=== PATIENT | male | born 1970 | race Caucasian/White ===

== ENCOUNTER → 2018-06-12 | Outpatient (CLI) | payer BC ==
[2018-06-12 14:41] VITALS: BP 135/84; PULSE 85; RESP 16; TEMP 98.1; BMI 49.1
--- NOTE | 2018-06-12 14:59 | P.HPBAR ---
Bariatric H&P - History & Physicial H&P Date: 06/12/18 History & Physicial: Visit/CC: initial visit Patient initial contact: Initial weight: 164.285 kg Initial weight in pounds: 362.19 Height: 5 ft 11.5 in Initial BMI: 49.1 Last weight: Current weight: 164.337 kg Current weight in pounds: 362.19 Current BMI: 49.1 [place] body weight (based on NIH guidelines): 80.739 kg Excess body weight loss: 0.0% The patient is a 47 year-old M who presents for Bariatric Assessment. Patient here today as a new bariatric assessment. Patient interested in sleeve gastrectomy. Patient went to a seminar 2 months ago. Patient complains of mild reflux. Takes antiacids daily. No DVT or dysphagia. History of obstructive sleep apnea and chronic back pain. No history of diabetes. No tobacco use. Review of Systems The patient denies any acute changes in vision or hearing, no dysphagia or odynophagia, no chest pain or shortness of breath, no dysuria or hematuria, no headache, no runny nose, no rectal bleeding or melena, no unexplained weight loss Past Medical History Past Medical History: Sleep Apnea/CPAP/BIPAP History of Any Multi-Drug Resistant Organisms: None Reported Past Surgical History: Appendectomy, Orthopedic Surgery Additional Past Surgical History / Comment(s): ankle l shoulder r shoulder r clavicle, throat surgery Past Psychological History: Depression Smoking Status: Former smoker Past Alcohol Use History: Rare Past Drug Use History: None Reported Surgical - Exam Vital Signs Temp Pulse Resp BP 98.1 F 85 16 135/84 06/12/18 14:14 06/12/18 14:14 06/12/18 14:14 06/12/18 14:14 Physical exam: General: Well-developed, well-nourished HEENT: Normocephalic, sclerae nonicteric Abdomen: Nontender, nondistended Extremities: No edema Neuro: Alert and oriented Bariatric Assessment & Plan (1) Morbid obesity with BMI of 45.0-49.9, adult Narrative/Plan: Surgical options reviewed in detail. Risks and benefits of gastric bypass and sleeve gastrectomy discussed. Patient remains interested in sleeve gastrectomy. We'll plan preoperative EGD. See the patient post-endoscopy back in the bariatric clinic prior to scheduling. Status: Acute Bariatric Checklist Checklist: Plan: Checklist: EGD: 1. Hiatal hernia: 2. H. Pylori: HgbA1c: Vitamin D: Smoking: Former smoker Primary care physician referral: dr. Willams Psychiatry clearance: Cardiology clearance: Sleep study: Diet journal: VTE risk score: VTE risk level: Rehab needs at discharge:
[2018-06-12 16:13] LABS: HCT 43.7 % (39.0-53.0); HGB 13.8 gm/dL (13.0-17.5); Hypochromasia Slight; MCH 26.5 pg (25.0-35.0); MCHC 31.6 g/dL (31.0-37.0); MCV 83.7 fL (80.0-100.0); Mean Platelet Volume 6.7; Platelet Count 299 k/uL (150-450); RBC 5.22 m/uL (4.30-5.90); RDW 13.3 % (11.5-15.5); WBC 10.4 k/uL (3.8-10.6)
[2018-06-12 22:58] LABS: Albumin 4.4 g/dL (3.80-4.90); Albumin/Globulin Ratio 1.69 (1.60-3.17); Anion Gap 7.4 mmol/L (4.00-12.00); Calcium 9.2 mg/dL (8.7-10.3); Carbon Dioxide 26.6 mmol/L (21.6-31.8); Globulin 2.6 g/dL (1.6-3.3); Potassium 4.1 mmol/L (3.5-5.5); Total Bilirubin 0.3 mg/dL (0.3-1.2)
[2018-06-12 23:16] LABS: Vitamin D 25 Hydroxy 22.8 ng/mL (30.0-100.0)
[2018-06-12 23:22] LABS: Folate, Serum 12.6 ng/mL
[2018-06-13 01:41] LABS: Hemoglobin A1C 6.3 % (4.0-6.0)
== END ==
LOC: BARWHC3 14:01
PROVIDERS: ATTEND Surgery
DX: E66.01 Morbid (severe) obesity due to excess calories (principal); K21.9 Gastro-esophageal reflux disease without esophagitis; G47.30 Sleep apnea, unspecified; G89.29 Other chronic pain; M54.9 Dorsalgia, unspecified; E55.9 Vitamin D deficiency, unspecified; K90.89 Other intestinal malabsorption; Z68.42 Body mass index [BMI] 45.0-49.9, adult; Z79.899 Other long term (current) drug therapy; Z87.891 Personal history of nicotine dependence
CPT/HCPCS: 36415; 80053; 82306; 82607; 82746; 83036; 83540; 84425; 85027; 93005; 99211

== ENCOUNTER 2018-07-25 07:02 | Day surgery (SDC) | payer BC ==
[2018-07-21 12:46] VITALS: BMI 49.8
[~2018-07-25 07:02] MED LIST: LACTATED RINGERS 1,000 ML IV SCH
[2018-07-25] MEDS ORDERED: LACTATED RINGERS 1,000 ML IV ONE (07:06)
[2018-07-25 07:20] VITALS: TEMP 97.3
[2018-07-25 07:31] LABS: Glucose,Whole Blood 101 mg/dL (75-99)
[2018-07-25] MEDS ORDERED: LIDOCAINE 1% INJ 10MG/ML (20 ML MDV) ONE (07:34)
[2018-07-25] MEDS ORDERED: fentaNYL (PF) 50 MCG/ML 2 ML AMP ONE (07:34)
[2018-07-25] MEDS ORDERED: MIDAZOLAM 2 MG/2 ML VIAL ONE (07:34)
[2018-07-25] MEDS ORDERED: KETAMINE 10 MG/ML 20 ML VIAL ONE (07:34)
[2018-07-25] MEDS ORDERED: PROPOFOL 10 MG/ML 20 ML VIAL IV ONE (07:34)
--- NOTE | 2018-07-25 07:35 | P.GSHP ---
History of Present Illness H&P Date: 07/25/18 Chief Complaint: GERD 47-year-old male was seen in the office in mid May. Patient is interested in bariatric surgery. Patient complains of mild reflux. No history of dysphagia. No previous upper endoscopy. Past Medical History Past Medical History: Diabetes Mellitus, GERD/Reflux, Sleep Apnea/CPAP/BIPAP Additional Past Medical History / Comment(s): ON RX FOR "PRE-DIABETIC," PER PATIENT. USES CPAP. History of Any Multi-Drug Resistant Organisms: None Reported Past Surgical History: Appendectomy, Orthopedic Surgery Additional Past Surgical History / Comment(s): LT Ankle, AGUEDA shoulders, RT clavicle, Throat surgery - UPPP. COLONOSCOPY. Past Anesthesia/Blood Transfusion Reactions: No Reported Reaction Past Psychological History: Depression Smoking Status: Former smoker Past Alcohol Use History: Rare Additional Past Alcohol Use History / Comment(s): SMOKED 22 YEARS, 1 PPD, QUIT 04/2008. Past Drug Use History: None Reported - Past Family History Mother Family Medical History: No Reported History Medications and Allergies Home Medications Medication Instructions Recorded Confirmed Type FLUoxetine HCL [PROzac] 80 mg PO DAILY 04/11/15 07/25/18 History Omeprazole [PriLOSEC] 20 mg PO AC-BRKFST 04/11/15 07/25/18 History Canagliflozin [Invokana] 100 mg PO DAILY 06/24/18 07/25/18 History Ergocalciferol (Vitamin D2) 50,000 unit PO MO 06/24/18 07/25/18 History [Drisdol] Allergies Allergy/AdvReac Type Severity Reaction Status Date / Time meperidine HCl [From Demerol] Allergy Unknown Verified 07/25/18 07:17 Childhood Surgical - Exam Vital Signs Temp Pulse Resp BP Pulse Ox 97.3 F L 68 16 128/70 96 07/25/18 07:18 07/25/18 07:18 07/25/18 07:18 07/25/18 07:18 07/25/18 07:18 Physical exam: General: Well-developed, well-nourished HEENT: Normocephalic, sclerae nonicteric Abdomen: Nontender, nondistended Extremities: No edema Neuro: Alert and oriented Results - Labs Abnormal Lab Results - Last 24 Hours (Table) 07/25/18 Range/Units 07:27 POC Glucose (mg/dL) 101 H (75-99) mg/dL Assessment and Plan (1) GERD (gastroesophageal reflux disease) Narrative/Plan: Will proceed with upper endoscopy at this time. Current Visit: Yes Status: Acute Code(s): K21.9 - GASTRO-ESOPHAGEAL REFLUX DISEASE WITHOUT ESOPHAGITIS SNOMED Code(s): 341202733
--- NOTE | 2018-07-25 07:49 | P.PCN ---
Date of Procedure: 07/25/18 Procedure(s) Performed: Preoperative Dx: GERD, presurgical Postoperative Dx: Mild gastritis Procedure: EGD with Bx Anesthesia: Sedation Endoscopist: Dr. Harman Specimens: Antrum Endoscopic Procedure: The patient was on the endoscopy table in the left decubitus position. The Olympus gastroscope was inserted into the oropharynx and passed under direct visualization to the region of the third portion of the duodenum. From that point the scope was slowly withdrawn inspecting all surfaces carefully. There were no neoplastic inflammatory or polypoid lesions throughout the duodenum. The pylorus was widely patent. The stomach was carefully inspected. There was gastritis present. A biopsy of the antrum took place to rule out H. pylori. Retroflexion revealed a normal hiatus. The esophagus was then carefully examined. There were no neoplastic inflammatory or polypoid lesions throughout the visualized esophagus. The patient was then taken to the recovery room in stable condition per anesthesia guidelines. Recommendations: Await biopsy results. Proceed with preoperative workup for sleep gastrectomy.
[2018-07-25 08:22] VITALS: BP 117/78; PULSE 76; RESP 17
== END 2018-07-25 08:23 | disposition home or self-care (01) ==
LOC: ORWHC2ENDO 07:02
PROVIDERS: ATTEND Surgery
DX: K21.9 Gastro-esophageal reflux disease without esophagitis (principal); K29.50 Unspecified chronic gastritis without bleeding; E11.9 Type 2 diabetes mellitus without complications; G47.30 Sleep apnea, unspecified; Z99.89 Dependence on other enabling machines and devices; Z87.891 Personal history of nicotine dependence; Z79.84 Long term (current) use of oral hypoglycemic drugs; Z79.899 Other long term (current) drug therapy; Z88.5 Allergy status to narcotic agent
CPT/HCPCS: 88305; 43239; J2250; J2001; J3010; J2704

== ENCOUNTER → 2018-08-11 | Outpatient (CLI) | payer BC ==
[2018-08-11 13:14] VITALS: BMI 48.2
== END ==
LOC: BARWHC3 08:49
PROVIDERS: ATTEND Surgery
DX: E66.01 Morbid (severe) obesity due to excess calories (principal); Z68.42 Body mass index [BMI] 45.0-49.9, adult
CPT/HCPCS: 97804

== ENCOUNTER → 2018-11-11 | Outpatient (CLI) | payer BC ==
[2018-11-11 14:11] VITALS: BP 123/66; PULSE 43; RESP 16; TEMP 98.3; BMI 46.3
--- NOTE | 2018-11-11 15:36 | P.BASOAP ---
Subjective Progress Note Date: 11/11/18 Principal diagnosis: Morbid obesity Patient returns for reevaluation. He is scheduled for sleeve gastrectomy mid- November. Patient doing well since his last evaluation. He had upper endoscopy in June showing only mild gastritis. He was started on saxenda. He has lost less than 10 pounds since starting that. That medication has improved his hunger. Objective - Vital Signs Vital signs: Vital Signs Temp 98.3 F 11/11/18 14:07 Pulse 43 L 11/11/18 14:07 Resp 16 11/11/18 14:07 BP 123/66 11/11/18 14:07 Pulse Ox Intake & Output 11/10/18 11/11/18 11/11/18 18:59 06:59 18:59 Weight 159.211 kg - Exam Abdomen: Soft, nontender, nondistended Assessment/Plan (1) Morbid obesity with BMI of 45.0-49.9, adult Narrative/Plan: Patient's heart rate when checked was 43. Irregular pulse on exam. EKG was ordered. EKG shows bigeminy. We'll have EKG reviewed by the patient's primary physician. Will obtain cardiac clearance. Hopefully we'll be able to proceed with planned sleeve gastrectomy next month. The risks of bleeding, infection, stenosis, stricture, leak, abscess, fistula formation, peritonitis, poor weight loss, reflux, vomiting, conversion to an open procedure, aborting sleeve gastrectomy, MT, PE, DVT, and were discussed. The patient understands and wishes to proceed. Plan: Date: 11/11/18 Initial Weight: 164.285 kg Initial BMI: 47.7 Current Weight: 159.211 kg Current BMI: 46.3 Type of Surgery: Total Volume in Band: Previous Volume: Volume Removed: Volume Added: Band Size:
== END ==
LOC: BARWHC3 13:47
PROVIDERS: ATTEND Surgery
DX: E66.01 Morbid (severe) obesity due to excess calories (principal); Z68.42 Body mass index [BMI] 45.0-49.9, adult
CPT/HCPCS: 93005; 99211

== ENCOUNTER → 2018-11-13 | Outpatient (CLI) | payer BC ==
[2018-11-13 19:26] LABS: African American GFR (CKD) 102.7 (60.0-200.0); Anion Gap 7.9 mmol/L (4.00-12.00); Carbon Dioxide 29.1 mmol/L (21.6-31.8); Potassium 4.6 mmol/L (3.5-5.5)
== END | disposition home or self-care (01) ==
LOC: LABWHC1 11:48
PROVIDERS: ATTEND Internal Medicine Cardiovascular Disease
DX: I49.3 Ventricular premature depolarization (principal)
CPT/HCPCS: 36415; 80051; 82565; 83735; 84443; 84520

== ENCOUNTER 2018-12-15 12:00 | Inpatient (IN) | payer BC ==
[2019-01-12] MEDS ORDERED: ENOXAPARIN 40 MG/0.4 ML SYRINGE SQ ONE (05:00)
[2019-01-12] MEDS ORDERED: ceFAZolin 3 GM in SODIUM CHLORIDE 0.9% 100 ML IVPB ONE (05:00)
[2019-01-12] MEDS ORDERED: LIDOCAINE 1% 20 ML VIAL (10MG/ML) FOR IV START INTRADERMA PRN (05:52)
[2019-01-12] MEDS ORDERED: METOCLOPRAMIDE 5 MG/ML 2 ML VIAL IVP PRN (05:52)
[2019-01-12] MEDS ORDERED: ONDANSETRON 4 MG/2 ML VIAL IVP ONE (05:52)
[2019-01-12] MEDS ORDERED: SCOPOLAMINE 1.5MG/72HR PATCH TRANSDERM ONE (05:52)
[2019-01-12] MEDS ORDERED: DEXAMETHASONE SOD PHOSPHATE 10 MG/ML 1 ML VIAL IV ONE (05:52)
--- NOTE | 2019-01-12 10:49 | P.GSHP ---
History of Present Illness H&P Date: 01/12/19 Patient presents today for elective sleeve gastrectomy. Patient first seen in the bariatric clinic in May of this year. Patient has been interested in sleeve gastrectomy. He is not interested in alternative bariatric surgical procedures. Patient has had an upper endoscopy which showed mild gastritis. No hiatal hernia seen. Complains of mild reflux at times. Does take antiacids daily. No history of DVT or dysphagia. Other medical history includes sleep apnea and chronic back pain. Patient had cardiac clearance obtained. Past Medical History Past Medical History: Diabetes Mellitus, GERD/Reflux, Sleep Apnea/CPAP/BIPAP Additional Past Medical History / Comment(s): ON RX FOR "PRE-DIABETIC," PER PATIENT. USES CPAP. History of Any Multi-Drug Resistant Organisms: None Reported Past Surgical History: Appendectomy, Back Surgery, Orthopedic Surgery Additional Past Surgical History / Comment(s): LUMBAR DISCETOMY December,. ORIFLT Ankle, BUT HARDWARE REMOVED. AGUEDA ROTATOR CUFF REPAIR. RT clavicle REPAIR.. Throat surgery - UPPP (PATIENT STATES IT DID NOT HELP AND WAS VERY PAINFUL). COLONOSCOPY. Past Anesthesia/Blood Transfusion Reactions: No Reported Reaction Past Psychological History: Depression Smoking Status: Former smoker Past Alcohol Use History: Rare Additional Past Alcohol Use History / Comment(s): SMOKED 22 YEARS, 1 PPD, QUIT 04/2008. Past Drug Use History: None Reported - Past Family History Mother Family Medical History: No Reported History Medications and Allergies Home Medications Medication Instructions Recorded Confirmed Type FLUoxetine HCL [PROzac] 80 mg PO QAM 04/11/15 01/05/19 History Omeprazole [PriLOSEC] 20 mg PO AC-BRKFST 04/11/15 01/05/19 History Canagliflozin [Invokana] 200 mg PO QAM 06/24/18 01/05/19 History Liraglutide [Saxenda] 1 injection SQ QAM 11/11/18 01/05/19 History Allergies Allergy/AdvReac Type Severity Reaction Status Date / Time meperidine HCl [From Demerol] Allergy Unknown Verified 01/05/19 14:45 Childhood Surgical - Exam Physical exam: General: Well-developed, well-nourished HEENT: Normocephalic, sclerae nonicteric Abdomen: Nontender, nondistended Extremities: No edema Neuro: Alert and oriented Assessment and Plan (1) Morbid obesity with BMI of 45.0-49.9, adult Narrative/Plan: Will proceed with sleeve gastrectomy at this time. The risks of bleeding, infection, stenosis, stricture, leak, abscess, fistula formation, peritonitis, poor weight loss, reflux, vomiting, conversion to an open procedure, aborting sleeve gastrectomy, ME, PE, DVT, and were discussed. The patient unde rstands and wishes to proceed. Status: Acute Code(s): E66.01 - MORBID (SEVERE) OBESITY DUE TO EXCESS CALORIES; Z68.42 - BODY MASS INDEX (BMI) 45.0-49.9, ADULT SNOMED Code(s): 871904572
[2019-01-12] MEDS: LACTATED RINGERS 1,000 ML IV SCH ×2 (12:21→21:53)
[2019-01-12 12:37] LABS: Glucose,Whole Blood 84 mg/dL (75-99)
[2019-01-12] MEDS ORDERED: NEOSTIGMINE 1 MG/ML 10 ML VIAL ONE (12:39)
[2019-01-12] MEDS ORDERED: LIDOCAINE 1% INJ 10MG/ML (20 ML MDV) ONE (12:39)
[2019-01-12] MEDS ORDERED: SUCCINYLCHOLINE CHLORIDE VIAL 200 MG/10 ML VIAL IV ONE (12:39)
[2019-01-12] MEDS ORDERED: MIDAZOLAM 2 MG/2 ML VIAL ONE (12:39)
[2019-01-12] MEDS ORDERED: fentaNYL (PF) 50 MCG/ML 2 ML AMP ONE (12:39)
[2019-01-12] MEDS ORDERED: GLYCOPYRROLATE 0.2 MG/ML 2 ML VIAL ONE (12:39)
[2019-01-12] MEDS ORDERED: PHENYLEPHRINE-0.9% NACL SYG 1 MG/10 ML SYRINGE ONE (12:39)
[2019-01-12] MEDS ORDERED: PROPOFOL 10 MG/ML 20 ML VIAL IV ONE (12:39)
[2019-01-12] MEDS ORDERED: ROCURONIUM BROMIDE 10 MG/ML 10 ML VIAL IV ONE (12:39)
[2019-01-12] MEDS ORDERED: BUPIVACAINE (PF) 0.25% 30 ML VIAL SQ ONE ×2 (13:10)
[2019-01-12] MEDS ORDERED: METHYLENE BLUE 3 MG in DEXTROSE 5% IN WATER 500 ML IRRIGATION ONE ×2 (13:22)
[2019-01-12] MEDS ORDERED: LACTATED RINGERS 1,000 ML IV ONE (13:47)
[2019-01-12] MEDS ORDERED: diphenhydrAMINE 50 MG/ML 1 ML VIAL IVP PRN (14:51)
[2019-01-12] MEDS ORDERED: ONDANSETRON 4 MG/2 ML VIAL IVP PRN (14:51)
[2019-01-12] MEDS ORDERED: NALOXONE 0.4 MG/ML 1 ML VIAL IV PRN (14:51)
--- NOTE | 2019-01-12 15:03 | P.OP ---
Date of Procedure: 01/12/19 Procedure(s) Performed: PREOPERATIVE DIAGNOSIS: Morbid obesity, chronic back pain, sleep apnea POSTOPERATIVE DIAGNOSIS: Same PROCEDURE: Laparoscopic sleeve gastrectomy SURGEON: Ghazal PATELL: Minimal ANESTHESIA: General COMPLICATIONS: None OPERATIVE PROCEDURE: Patient was placed in the operating table in the supine position. She was placed under general anesthesia at that time. The abdomen was prepped and draped in sterile fashion after the patient was placed in lithotomy. A 5 mm optical trocar was used to enter the abdominal cavity in the left upper quadrant. Insufflation took place to 15 millimeters mercury. An additional right subxiphoid 5 mm trocar was then placed under direct visualization and then removed. 2 additional 5 mm trochars were placed in the right upper quadrant and left upper quadrant under direct visualization and a 15 mm trocar in the supraumbilical location. The liver was retracted using a medium Geovanni liver retractor through the right subxiphoid trocar site. The hiatus was inspected. The patient had no visible hiatal hernia At that point I moved to the mid aspect of the greater curvature the stomach. The short gastric vasculature was divided using a LigaSure device proximally. I then switched and divided the short gastrics distally to a 3-4 cm from the pylorus. The dissection took place up to the left diaphragmatic crura at that point. The posterior short gastrics were likewise divided using the LigaSure device. Once the stomach was fully mobilized the blunt tipped 40-Frisian bougie dilator was advanced into the stomach and advanced all the way to the prepyloric location. A black echelon 60 stapler was utilized and fired tangentially across the antrum taking care to avoid narrowing at the incisura angularis. Subsequent firings of the stapler took place. An additional black load was then utilized with seam guard. A total of 4 green echelon 60 staplers with seam guard took place proximally staying on the outer edge of our dilator. Once we reached the most proximal portion of the stomach a single firing of the gold echelon 60 stapler without seen guard took place. The oral gastric tube was reinserted. The stomach was insufflated with approximately 100 mL of methylene blue. No evidence of leak or obstruction was seen. The distal aspect of the sleeve was then reapproximated to the gastrosplenic and gastrocolic ligament using a short running 2-0 strata fix suture. This was done to prevent kinking or twisting of the sleeve. Fibrin glue was then used along the length of the sleeve. The stomach remnant was removed from the 15 mm trocar site without difficulty. The fascia at the 15 more site was closed using interrupted 0 Vicryl sutures with the laparoscopic suture passer and Lyle Dada technique. The insufflation was evacuated. The skin at all 5 incisions were closed using 4-0 Monocryl sutures. Skin glue and sterile dressings were then applied. DISPOSITION: Stable to recovery room
[2019-01-12 15:07] LABS: Glucose,Whole Blood 104 mg/dL (75-99)
[2019-01-12] MEDS: HYDROmorphone 0.5 MG/0.5 ML SYRINGE IVP PRN ×3 (15:28→16:55)
[2019-01-12] MEDS ORDERED: HYDROmorphone 1 MG/ML 1 ML SYRINGE IVP ONE (17:00)
[2019-01-12] MEDS: ALBUTEROL NEBULIZED 2.5 MG/3 ML INHALATION SCH ×2 (17:42→20:18)
[2019-01-12] MEDS: KETOROLAC 30 MG/ML 1 ML VIAL IVP SCH ×2 (18:23→18:24)
[2019-01-12] MEDS: HYDROmorphone 1 MG/ML 1 ML SYRINGE IVP PRN (21:58)
[2019-01-12] MEDS: 0.9% NACL WITH KCL 20 MEQ/L 1,000 ML IV SCH (22:14)
[2019-01-12 22:41] LABS: Glucose,Whole Blood 123 mg/dL (75-99)
[2019-01-13] MEDS: HYDROmorphone 1 MG/ML 1 ML SYRINGE IVP PRN ×6 (01:21→21:10)
[2019-01-13] MEDS: 0.9% NACL WITH KCL 20 MEQ/L 1,000 ML IV SCH ×3 (01:23→07:56)
[2019-01-13] MEDS: SIMETHICONE 40 MG/0.6 ML DROPS 2,000 MG/30 ML BOTTLE PO PRN ×2 (05:37→18:07)
[2019-01-13] MEDS: HYOSCYAMINE ORAL DROPS 1.875 MG/15 ML BOTTLE PO PRN ×2 (05:38→18:07)
[2019-01-13 06:51] LABS: Basophils % (A) 0 %; Eosinophils % (A) 0 %; HCT 45.3 % (39.0-53.0); HGB 13.8 gm/dL (13.0-17.5); Hypochromasia Slight; Lymphocytes % (A) 10 %; MCH 26.1 pg (25.0-35.0); MCHC 30.4 g/dL (31.0-37.0); MCV 85.9 fL (80.0-100.0); Mean Platelet Volume 6.9; Monocytes # (A) 0.5 k/uL (0-1.0); Monocytes % (A) 4 %; Neutrophils # (A) 8.8 k/uL (1.3-7.7); Neutrophils % (A) 85 %; Platelet Count 269 k/uL (150-450); RBC 5.27 m/uL (4.30-5.90); RDW 14.1 % (11.5-15.5); WBC 10.3 k/uL (3.8-10.6)
[2019-01-13 06:59] LABS: African American GFR (CKD) >90 (>60 ml/min/1.73 sqM); Anion Gap 9 mmol/L; Blood Urea Nitrogen 13 mg/dL (9-20); Calcium 8.9 mg/dL (8.4-10.2); Carbon Dioxide 24 mmol/L (22-30); Chloride 106 mmol/L (98-107); Magnesium 2.1 mg/dL (1.6-2.3); Phosphorus 3.4 mg/dL (2.5-4.5); Potassium 5.1 mmol/L (3.5-5.1); Sodium 139 mmol/L (137-145)
[2019-01-13 07:28] LABS: Glucose,Whole Blood 97 mg/dL (75-99)
[2019-01-13] MEDS: ENOXAPARIN 40 MG/0.4 ML SYRINGE SQ SCH ×2 (07:45→21:09)
[2019-01-13] MEDS: PANTOPRAZOLE 40 MG/10 ML VIAL IV SCH (07:45)
[2019-01-13] MEDS: 1: MVI, ADULT NO.4 WITH VIT K 10 ML, THIAMINE 100 MG, FOLIC ACID 1 MG, POTASSIUM CHLORID IV SCH ×12 (08:54→16:27)
[2019-01-13] MEDS: ALBUTEROL NEBULIZED 2.5 MG/3 ML INHALATION SCH ×4 (09:01→20:07)
--- NOTE | 2019-01-13 09:41 | FL ---
EXAMINATION TYPE: FL UGI DATE OF EXAM: 01/13/2019 COMPARISON: NONE HISTORY: Status post bariatric surgery, gastric sleeve TECHNIQUE: A single contrast UGI study is performed. FINDINGS: Patient received 50 cc Isovue-370. 1 minute 19 seconds fluoroscopy time. 5 images obtained. Contrast material courses to the level of the gastroesophageal junction. No contrast was noted to cou rse more distally. There is no evident leak. Air-fluid levels present in left upper quadrant. There i s basilar atelectasis. IMPRESSION: Obstruction at the level of the patient's operative site. Referring clinician informed by [email or web address] dunbar.
[2019-01-13] MEDS ORDERED: DEXAMETHASONE SOD PHOSPHATE 4 MG/ML 1 ML VIAL IV PRN (09:49)
[2019-01-13] MEDS ORDERED: HYDROcodone/APAP 15 ML SOLUTION PO PRN (11:15)
[2019-01-13] MEDS ORDERED: ONDANSETRON 4 MG/2 ML VIAL IVP PRN (11:16)
--- NOTE | 2019-01-13 11:17 | P.PN ---
<Lila Isaac Taye - Last Filed: 01/13/19 11:12> Subjective Progress Note Date: 01/13/19 CHIEF COMPLAINT: Morbid obesity HISTORY OF PRESENT ILLNESS: 48-year-old male who is status post laparoscopic sleeve gastrectomy. Postop day #1. Patient reports his pain is tolerable. He reports mild nausea overnight and this morning. He has been tolerating ice chips. Esophagram completed this morning reveals obstruction at the level of the patient's operative site. No evident leak noted. PHYSICAL EXAM: VITAL SIGNS: Reviewed. GENERAL: Well-developed in no acute distress. HEENT: No sclera icterus. Extraocular movements grossly intact. Moist buccal mucosa. Head is atraumatic, normocephalic. ABDOMEN: Obese. Soft. Nondistended. Appropriate surgical tenderness. Laparoscopic incision sites clean dry and intact without drainage. NEUROLOGIC: Alert and oriented. Cranial nerves II through XII grossly intact. ASSESSMENT: 1. Morbid obesity, status post laparoscopic sleeve gastrectomy PLAN: 1. Patient may have ice chips and sips of clear liquids only at this time 2. Begin Decadron 4 mg IV every 6 hours 3. Repeat esophagram tomorrow morning 4. Increase activity as tolerated 5. Pain control 6. Incentive spirometer 10 times an hour Nurse practitioner note has been reviewed by physician. Signing provider agrees with the documented findings, assessment, and plan of care. Objective - Vital Signs Vital signs: Vital Signs Temp 98.3 F 01/13/19 07:01 Pulse 93 01/13/19 09:12 Resp 17 01/13/19 07:01 BP 159/80 01/13/19 07:01 Pulse Ox 95 01/13/19 07:01 Intake & Output 01/12/19 01/13/19 01/13/19 18:59 06:59 18:59 Intake Total 1801 1800 Output Total 15 500 500 Balance 1786 1300 -500 Intake: IV 1801 Intake, IV Titration 1800 Amount 0.9% NaCl with KCl 20 Meq 1800 /l 1,000 ml @ 150 mls/hr IV .[id number] [facility] Rx#: [id number] Output: Urine 500 500 Estimated Blood Loss 15 Other: Voiding Method Urinal Urinal - Labs CBC & Chem 7: 01/13/19 06:07 01/13/19 06:07 Labs: Abnormal Lab Results - Last 24 Hours (Table) 01/12/19 01/12/19 01/13/19 Range/Units 15:05 22:39 06:07 MCHC 30.4 L (31.0-37.0) g/dL Neutrophils # 8.8 H (1.3-7.7) k/uL Creatinine (0.66-1.25) mg/dL POC Glucose (mg/dL) 104 H 123 H (75-99) mg/dL 01/13/19 Range/Units 06:07 MCHC (31.0-37.0) g/dL Neutrophils # (1.3-7.7) k/uL Creatinine 0.65 L (0.66-1.25) mg/dL POC Glucose (mg/dL) (75-99) mg/dL <Matt Harman - Last Filed: 01/13/19 14:32> Subjective As above. Patient complaining some mild indigestion overnight. No vomiting. Patient's upper GI shows obstruction likely related to edema. We were able to advance our dilator and nasogastric tube without difficulty yesterday. Continue sips of liquids. Will plan repeat esophagram tomorrow. Agree with Decadron. We'll also add Toradol. Objective - Vital Signs Vital signs: Vital Signs Temp 98.3 F 01/13/19 07:01 Pulse 96 01/13/19 12:32 Resp 17 01/13/19 07:01 BP 159/80 01/13/19 07:01 Pulse Ox 90 L 01/13/19 11:35 Intake & Output 01/12/19 01/13/19 01/13/19 18:59 06:59 18:59 Intake Total 1801 1800 500 Output Total 15 500 1000 Balance 1786 1300 -500 Intake: IV 1801 Intake, IV Titration 1800 500 Amount 0.9% NaCl with KCl 20 Meq 500 /l 1,000 ml @ 100 mls/hr IV .BY DURATION [facility] Rx#: [id number] 0.9% NaCl with KCl 20 Meq 1800 /l 1,000 ml @ 150 mls/hr IV .Q6H40M [facility] Rx#: [id number] Output: Urine 500 1000 Estimated Blood Loss 15 Other: Voiding Method Urinal Urinal - Labs CBC & Chem 7: 01/13/19 06:07 01/13/19 06:07 Labs: Abnormal Lab Results - Last 24 Hours (Table) 01/12/19 01/12/19 01/13/19 Range/Units 15:05 22:39 06:07 MCHC 30.4 L (31.0-37.0) g/dL Neutrophils # 8.8 H (1.3-7.7) k/uL Creatinine (0.66-1.25) mg/dL POC Glucose (mg/dL) 104 H 123 H (75-99) mg/dL 01/13/19 01/13/19 Range/Units 06:07 12:15 MCHC (31.0-37.0) g/dL Neutrophils # (1.3-7.7) k/uL Creatinine 0.65 L (0.66-1.25) mg/dL POC Glucose (mg/dL) 121 H (75-99) mg/dL Assessment and Plan (1) Morbid obesity with BMI of 45.0-49.9, adult Current Visit: No Status: Acute Code(s): E66.01 - MORBID (SEVERE) OBESITY DUE TO EXCESS CALORIES; Z68.42 - BODY MASS INDEX (BMI) 45.0-49.9, ADULT SNOMED Code(s): 049494428
[2019-01-13 12:18] LABS: Glucose,Whole Blood 121 mg/dL (75-99)
[2019-01-13 16:49] VITALS: BMI 46.6
[2019-01-13 17:00] LABS: Glucose,Whole Blood 101 mg/dL (75-99)
[2019-01-13] MEDS: DEXAMETHASONE SOD PHOSPHATE 4 MG/ML 1 ML VIAL IV SCH ×2 (17:01→22:59)
[2019-01-13] MEDS: KETOROLAC 30 MG/ML 1 ML VIAL IVP SCH ×2 (17:02→22:59)
[2019-01-13 20:22] LABS: Glucose,Whole Blood 131 mg/dL (75-99)
[2019-01-13 20:54] LABS: Hemoglobin A1C 5.6 % (4.0-6.0)
--- NOTE | 2019-01-13 21:38 | P.CONS ---
History of Present Illness - Reason for Consult Consult date: 01/13/19 Medical management of diabetes and other medical problems - Chief Complaint Status post laparoscopic sleeve gastrectomy - History of Present Illness Patient is a 48-year-old male with a known history of diabetes type 2 mbw-zycmzdn-gfsmtmcwr, obstructive sleep apnea and morbid obesity BMI 46.7 was admitted to the hospital for elective Laparoscopic sleeve gastrectomy. Patient tolerated the procedure very well. Currently abdominal discomfort is controlled. Patient does have some nausea. No vomiting. No headache or dizziness like tightness. No chest pain or shortness of breath. Patient is able to ambulate in the hallway. Patient has not passed flatness. No complaints of abdominal pain otherwise. no fever no chills. No cough or sputum production. Review of Systems Constitutional: Patient denies any fever or chills . No generalized weakness or weight loss. Abdomen: Patient denied nausea vomiting and diarrhea and abdominal pain. Patient does have some abdominal discomfort. Cardiovascular: Patient denies any chest pain or short of breath no palpitations. Respiratory: patient denied any cough is from production. No shortness of breath Neurologic: Patient denied any numbness or tingling headache. Musculoskeletal: Patient denies any complaints of joint swelling or deformity. Skin: Negative Psychiatric: Negative Endocrine: No heat or cold intolerance. No recent weight gain. Genitourinary: No dysuria or hematuria. All other 14 point ROS negative except the above Past Medical History Past Medical History: Diabetes Mellitus, GERD/Reflux, Sleep Apnea/CPAP/BIPAP Additional Past Medical History / Comment(s): ON RX FOR "PRE-DIABETIC," PER PATIENT. USES CPAP. History of Any Multi-Drug Resistant Organisms: None Reported Past Surgical History: Appendectomy, Back Surgery, Bariatric Surgery, Orthopedic Surgery Additional Past Surgical History / Comment(s): LUMBAR DISCETOMY December,. ORIFLT Ankle, BUT HARDWARE REMOVED. AGUEDA ROTATOR CUFF REPAIR. RT clavicle REPAIR.. Throat surgery - UPPP (PATIENT STATES IT DID NOT HELP AND WAS VERY PAINFUL). COLONOSCOPY. Past Anesthesia/Blood Transfusion Reactions: No Reported Reaction Past Psychological History: Depression Smoking Status: Former smoker Past Alcohol Use History: Rare Additional Past Alcohol Use History / Comment(s): SMOKED 22 YEARS, 1 PPD, QUIT 04/2008. Past Drug Use History: None Reported - Past Family History Mother Family Medical History: No Reported History Medications and Allergies Home Medications Medication Instructions Recorded Confirmed Type FLUoxetine HCL [PROzac] 80 mg PO QAM 04/11/15 01/05/19 History Omeprazole [PriLOSEC] 20 mg PO AC-BRKFST 04/11/15 01/05/19 History Canagliflozin [Invokana] 200 mg PO QAM 06/24/18 01/12/19 History Liraglutide [Saxenda] 1 injection SQ QAM 11/11/18 01/12/19 History Allergies Allergy/AdvReac Type Severity Reaction Status Date / Time meperidine HCl [From Demerol] Allergy Unknown Verified 01/05/19 14:45 Childhood Physical Exam Vitals: Vital Signs Temp Pulse Pulse Resp BP Pulse Ox Pulse Ox 01/13/19 20:18 90 01/13/19 20:08 90 01/13/19 19:13 98.4 F 91 18 158/85 91 L 01/13/19 16:44 90 01/13/19 16:33 90 01/13/19 15:48 98.6 F 89 15 143/82 91 L 01/13/19 12:32 96 01/13/19 12:16 89 01/13/19 11:35 90 L 01/13/19 11:20 90 L 01/13/19 09:12 93 01/13/19 09:01 82 01/13/19 07:01 98.3 F 104 H 17 159/80 95 01/13/19 04:08 18 01/13/19 02:10 98.1 F 70 169/73 97 01/13/19 00:00 18 01/12/19 23:58 94 L 01/12/19 23:51 95 01/12/19 23:30 165/82 01/12/19 22:04 97.7 F 94 18 180/99 97 Pulse Ox Pulse Ox 01/13/19 20:18 01/13/19 20:08 01/13/19 19:13 01/13/19 16:44 01/13/19 16:33 01/13/19 15:48 01/13/19 12:32 01/13/19 12:16 01/13/19 11:35 01/13/19 11:20 92 L 89 L 01/13/19 09:12 01/13/19 09:01 01/13/19 07:01 01/13/19 04:08 01/13/19 02:10 01/13/19 00:00 01/12/19 23:58 01/12/19 23:51 01/12/19 23:30 01/12/19 22:04 Intake and Output 01/13/19 01/13/19 01/13/19 06:59 14:59 22:59 Intake Total 900 500 Output Total 1000 800 Balance 900 -500 -800 Intake: Intake, IV Titration 900 500 Amount 0.9% NaCl with KCl 20 Meq 500 /l 1,000 ml @ 100 mls/hr IV .BY DURATION EDA Rx#: [id number] 0.9% NaCl with KCl 20 Meq 900 /l 1,000 ml @ 150 mls/hr IV .Q6H40M EDA Rx#: [id number] Output: Urine 1000 800 Other: Voiding Method Urinal Urinal Urinal Weight 156.036 kg PHYSICAL EXAMINATION: Patient is lying in the bed comfortably, no acute distress, awake alert and oriented.. HEENT: Normocephalic. Neck is supple. Pupils reactive. Nostrils clear. Oral cavity is moist. Ears reveal no drainage. Neck reveals no JVD, carotid bruits, or thyromegaly. CHEST EXAMINATION: Trachea is central. Symmetrical expansion. Bibasilar diminished air entry. Lung grace clear to auscultation and percussion. CARDIAC: Normal S1, S2 with no gallops. No murmurs ABDOMEN: Soft. Bowel sounds diminished. No organomegaly. No abdominal bruits. Extremities: reveal no edema. No clubbing or cyanosis Neurologically awake, alert, oriented x3 with well-coordinated movements. No focal deficits noted Skin: No rash or skin lesions. Psychiatric: Coperative. Nonsuicidal Musculoskeletal: No joint swelling or deformity. Normal range of motion. Results CBC & Chem 7: 01/13/19 06:07 01/13/19 06:07 Labs: Abnormal Lab Results - Last 24 Hours (Table) 01/12/19 01/13/19 01/13/19 Range/Units 22:39 06:07 06:07 MCHC 30.4 L (31.0-37.0) g/dL Neutrophils # 8.8 H (1.3-7.7) k/uL Creatinine 0.65 L (0.66-1.25) mg/dL POC Glucose (mg/dL) 123 H (75-99) mg/dL 01/13/19 01/13/19 01/13/19 Range/Units 12:15 16:58 20:21 MCHC (31.0-37.0) g/dL Neutrophils # (1.3-7.7) k/uL Creatinine (0.66-1.25) mg/dL POC Glucose (mg/dL) 121 H 101 H 131 H (75-99) mg/dL Assessment and Plan Assessment: Status post laparoscopic sleeve gastrectomy. Diabetes type 2 [id number]-[id number]. Prediabetic Obstructive sleep apnea patient uses CPAP at home Anxiety/depression Previous history of smoking Morbid obesity with BMI 46.7 DVT prophylaxis Plan: Patient will be continued on IV hydration and continue with supportive management. Encourage ablation and incentive spirometry. DVT prophylaxis as per primary team. His insulin sliding scale as needed. We will continue to follow closely and further recommendations based on the clinical course. Time with Patient: Greater than 30
[2019-01-14] MEDS ORDERED: DEXAMETHASONE SOD PHOSPHATE 4 MG/ML 1 ML VIAL ONE (03:28)
[2019-01-14] MEDS ORDERED: HYDROmorphone 1 MG/ML 1 ML SYRINGE ONE (03:28)
[2019-01-14] MEDS ORDERED: ONDANSETRON 4 MG/2 ML VIAL ONE (03:28)
[2019-01-14] MEDS ORDERED: KETOROLAC 30 MG/ML 1 ML VIAL ONE (03:28)
[2019-01-14] MEDS: 1: MVI, ADULT NO.4 WITH VIT K 10 ML, THIAMINE 100 MG, FOLIC ACID 1 MG, POTASSIUM CHLORID IV SCH ×18 (07:58→20:34)
[2019-01-14] MEDS: KETOROLAC 30 MG/ML 1 ML VIAL IVP SCH ×4 (07:58→23:36)
[2019-01-14] MEDS: DEXAMETHASONE SOD PHOSPHATE 4 MG/ML 1 ML VIAL IV SCH (07:59)
[2019-01-14] MEDS: LACTATED RINGERS 1,000 ML IV SCH (07:59)
[2019-01-14] MEDS: ALBUTEROL NEBULIZED 2.5 MG/3 ML INHALATION SCH ×4 (08:27→20:16)
--- NOTE | 2019-01-14 10:10 | FL ---
EXAMINATION TYPE: FL UGI DATE OF EXAM: 01/14/2019 COMPARISON: 01/13/2019 comparison HISTORY: Gastric sleeve TECHNIQUE: A single contrast UGI study is performed. Motor Generator Set Operator views obtained demonstrates contrast with in the colon. FINDINGS: Contrast passes from the distal esophagus through the gastric sleeve with mild hesitancy. N o extravasation of contrast is evident. Previous obstruction is not identified. No free air is noted during this examination. Overhead radiographs were obtained which are unremarkable. Fluoroscopy time: 54 seconds. Images: 16 IMPRESSIONS: 1. Normal post gastric sleeve without obstruction or significant hesitancy. No extravasation.
--- NOTE | 2019-01-14 10:28 | P.PN ---
<IsaacLila Taye - Last Filed: 01/14/19 10:23> Subjective Progress Note Date: 01/14/19 CHIEF COMPLAINT: Morbid obesity HISTORY OF PRESENT ILLNESS: 48-year-old male who is status post laparoscopic sleeve gastrectomy. Postop day #2. Patient underwent repeat esophagram this morning revealing a normal post gastric sleeve without obstruction or significant hesitancy. No extravasation. Patient has been tolerating sips of clear liquids. Pain is controlled with current regimen. PHYSICAL EXAM: VITAL SIGNS: Reviewed. GENERAL: Well-developed in no acute distress. HEENT: No sclera icterus. Extraocular movements grossly intact. Moist buccal mucosa. Head is atraumatic, normocephalic. ABDOMEN: Obese. Soft. Nondistended. Appropriate surgical tenderness. Laparoscopic incision sites clean dry and intact without drainage. NEUROLOGIC: Alert and oriented. Cranial nerves II through XII grossly intact. ASSESSMENT: 1. Morbid obesity, status post laparoscopic sleeve gastrectomy 2. Postoperative obstruction of gastric sleeve, likely related to edema, an unexpected but potential outcome of surgery, resolved PLAN: 1. Begin bariatric clear liquid diet 2. Discontinue Decadron 3. Increase activity as tolerated 4. Pain control 5. Incentive spirometer 10 times an hour Nurse practitioner note has been reviewed by physician. Signing provider agrees with the documented findings, assessment, and plan of care. Objective - Vital Signs Vital signs: Vital Signs Temp 98.1 F 01/14/19 07:00 Pulse 94 01/14/19 08:42 Resp 18 01/14/19 08:28 BP 150/77 01/14/19 07:00 Pulse Ox 95 01/14/19 08:28 Intake & Output 01/13/19 01/14/19 01/14/19 18:59 06:59 18:59 Intake Total 500 1200 Output Total 1400 800 Balance -900 400 Weight 156.036 kg Intake: Intake, IV Titration 500 1200 Amount 0.9% NaCl with KCl 20 Meq 500 /l 1,000 ml @ 100 mls/hr IV .BY DURATION EDA Rx#: [id number] Mvi, Adult No.4 with Vit 1200 K 10 ml Thiamine 100 mg Folic Acid 1 mg Potassium Chloride 20 meq In Sodium Chloride 0.9% 1, 000 ml @ 100 mls/hr IV . BY DURATION EDA Rx#: [id number] Output: Urine 1400 800 Other: Voiding Method Urinal Urinal - Labs CBC & Chem 7: 01/13/19 06:07 01/13/19 06:07 Labs: Abnormal Lab Results - Last 24 Hours (Table) 01/13/19 01/13/19 01/13/19 Range/Units 12:15 16:58 20:21 POC Glucose (mg/dL) 121 H 101 H 131 H (75-99) mg/dL <Matt Harman - Last Filed: 01/14/19 12:54> Subjective As above. Patient doing better today. Begin higher volume of liquids. Anticipate discharge tomorrow. Objective - Vital Signs Vital signs: Vital Signs Temp 98.1 F 01/14/19 07:00 Pulse 103 H 01/14/19 11:51 Resp 18 01/14/19 08:28 BP 150/77 01/14/19 07:00 Pulse Ox 95 01/14/19 08:28 Intake & Output 01/13/19 01/14/19 01/14/19 18:59 06:59 18:59 Intake Total 500 2221.2 Output Total 1400 800 Balance -900 1421.2 Weight 156.036 kg Intake: Intake, IV Titration 500 2221.2 Amount 0.9% NaCl with KCl 20 Meq 500 /l 1,000 ml @ 100 mls/hr IV .BY DURATION [facility] Rx#: [id number] Mvi, Adult No.4 with Vit 2221.2 K 10 ml Thiamine 100 mg Folic Acid 1 mg Potassium Chloride 20 meq In Sodium Chloride 0.9% 1, 000 ml @ 100 mls/hr IV . BY DURATION EDA Rx#: [id number] Output: Urine 1400 800 Other: Voiding Method Urinal Urinal - Labs CBC & Chem 7: 01/13/19 06:07 01/13/19 06:07 Labs: Abnormal Lab Results - Last 24 Hours (Table) 01/13/19 01/13/19 Range/Units 16:58 20:21 POC Glucose (mg/dL) 101 H 131 H (75-99) mg/dL Assessment and Plan (1) Morbid obesity with BMI of 45.0-49.9, adult Current Visit: No Status: Acute Code(s): E66.01 - MORBID (SEVERE) OBESITY DUE TO EXCESS CALORIES; Z68.42 - BODY MASS INDEX (BMI) 45.0-49.9, ADULT SNOMED Code(s): 954617758
[2019-01-14] MEDS: PANTOPRAZOLE 40 MG/10 ML VIAL IV SCH (10:44)
[2019-01-14] MEDS: PANTOPRAZOLE 40 MG TABLET PO SCH (10:45)
[2019-01-14] MEDS: ENOXAPARIN 40 MG/0.4 ML SYRINGE SQ SCH ×2 (10:45→18:02)
[2019-01-14] MEDS: CANAGLIFLOZIN 200 MG PO SCH (10:45)
[2019-01-14] MEDS: FLUoxetine HCL 20 MG CAP PO SCH (10:45)
[2019-01-14] MEDS: HYDROmorphone 1 MG/ML 1 ML SYRINGE IVP PRN (10:53)
--- NOTE | 2019-01-14 22:04 | P.PN ---
Subjective Progress Note Date: 01/14/19 Principal diagnosis: Status post sleeve gastrectomy Patient is a 48-year-old male with a known history of diabetes type 2 yfo-uzshwoe-euujiufhx, obstructive sleep apnea and morbid obesity BMI 46.7 was admitted to the hospital for elective Laparoscopic sleeve gastrectomy. Patient tolerated the procedure very well. Currently abdominal discomfort is controlled. Patient does have some nausea. No vomiting. No headache or dizziness like tightness. No chest pain or shortness of breath. Patient is able to ambulate in the hallway. Patient has not passed flatness. No compla ints of abdominal pain otherwise. no fever no chills. No cough or sputum production. 01/14/2019 Patient denied any complaints of abdominal discomfort. No chest pain or shortness of breath. Patient had upper GI series done again today showed no evidence of extravasation. Started on liquid diet. Otherwise patient is ambulating and passing flatus. No complaints of nausea vomiting or diarrhea. Patient has been afebrile. Current medications reviewed. Objective - Vital Signs Vital signs: Vital Signs Temp 98.1 F 01/14/19 07:00 Pulse 94 01/14/19 08:42 Resp 18 01/14/19 08:28 BP 150/77 01/14/19 07:00 Pulse Ox 95 01/14/19 08:28 Intake & Output 01/13/19 01/14/19 01/14/19 18:59 06:59 18:59 Intake Total 500 1200 Output Total 1400 800 Balance -900 400 Weight 156.036 kg Intake: Intake, IV Titration 500 1200 Amount 0.9% NaCl with KCl 20 Meq 500 /l 1,000 ml @ 100 mls/hr IV .BY DURATION EDA Rx#: [id number] Mvi, Adult No.4 with Vit 1200 K 10 ml Thiamine 100 mg Folic Acid 1 mg Potassium Chloride 20 meq In Sodium Chloride 0.9% 1, 000 ml @ 100 mls/hr IV . BY DURATION EDA Rx#: [id number] Output: Urine 1400 800 Other: Voiding Method Urinal Urinal - Exam PHYSICAL EXAMINATION: Patient is lying in the bed comfortably, no acute distress, awake alert and oriented.. HEENT: Normocephalic. Neck is supple. Pupils reactive. Nostrils clear. Oral cavity is moist. Ears reveal no drainage. Neck reveals no JVD, carotid bruits, or thyromegaly. CHEST EXAMINATION: Trachea is central. Symmetrical expansion. Lung grace clear to auscultation and percussion. CARDIAC: Normal S1, S2 with no gallops. No murmurs ABDOMEN: Soft. Nontender. Bowel sounds sluggish. No organomegaly. No abdominal bruits. Extremities: reveal no edema. No clubbing or cyanosis Neurologically awake, alert, oriented x3 with well-coordinated movements. No focal deficits noted Skin: No rash or skin lesions. Psychiatric: Coperative. Nonsuicidal Musculoskeletal: No joint swelling or deformity. Normal range of motion. - Labs CBC & Chem 7: 01/13/19 06:07 01/13/19 06:07 Labs: Abnormal Lab Results - Last 24 Hours (Table) 01/13/19 01/13/19 01/13/19 Range/Units 12:15 16:58 20:21 POC Glucose (mg/dL) 121 H 101 H 131 H (75-99) mg/dL Assessment and Plan Assessment: Status post laparoscopic sleeve gastrectomy. Postoperative day 2. Diabetes type 2 yrz-vvsdoea-dmmwccemz. Prediabetic Obstructive sleep apnea patient uses CPAP at home Anxiety/depression Previous history of smoking Morbid obesity with BMI 46.7 DVT prophylaxis Plan: Patient will be continued on IV hydration and continue with supportive management. Started on oral diet. Encourage ablation and incentive spirometry. DVT prophylaxis as per primary team. insulin sliding scale as needed. We will continue to follow closely and further recommendations based on the clinical course. Time with Patient: Greater than 30
--- NOTE | 2019-01-14 22:37 | P.PN ---
Progress Note - Text Progress Note Date: 01/14/19 Interval history: Patient underwent sleeve gastrectomy by Dr. Donato on January 12. There was s ome concern about upper GI obstruction and patient does morning underwent upper GI series. No obstruction was found. There is some evidence of edema. Patient has been put on a bariatric liquid diet. Today-'s sitting upon a chair. Comfortable. Started until liquids. Has possible status. No nausea vomiting. Slight discomfort of the operative site. Review of systems: Was done for constitutional, cardiovascular, GI, pulmonary. relevant finding as above Active Medications Hydrocodone Bitart/Acetaminophen (Jaffrey Elixir 7.5-325mg/15ml) 15 ml PO Q6H PRN PRN Reason: Pain Last Admin: 01/14/19 20:35 Dose: 15 ml Documented by: Albuterol Sulfate (Ventolin Nebulized) 2.5 mg INHALATION RT-QID [facility] Last Admin: 01/14/19 20:16 Dose: 2.5 mg Documented by: Diphenhydramine HCl (Benadryl) 25 mg IVP Q6HR PRN PRN Reason: Itching Enoxaparin Sodium (Lovenox) 40 mg SQ Q12H [facility] Last Admin: 01/14/19 18:02 Dose: 40 mg Documented by: Fluoxetine HCl (Prozac) 80 mg PO QAM [facility] Last Admin: 01/14/19 10:45 Dose: 80 mg Documented by: Hydromorphone HCl (Dilaudid) 1 mg IVP Q3HR PRN PRN Reason: Pain Last Admin: 01/14/19 10:53 Dose: 1 mg Documented by: Hyoscyamine (Levsin Drops) 0.125 mg PO Q6HR PRN PRN Reason: Esophageal Spasm Last Admin: 01/13/19 18:07 Dose: 0.125 mg Documented by: Lactated Ringer's (Lactated Ringers) 1,000 mls @ 20 mls/hr IV .Q24H [facility] Last Admin: 01/14/19 07:59 Dose: Not Given Documented by: Parenteral Vitamin Supplement 10 ml/ Thiamine HCl 100 mg/Folic Acid 1 mg/ Potassium Chloride 20 meq/ Sodium Chloride 1,021.2 mls @ 100 mls/hr IV .BY DURATION [facility] Last Admin: 01/14/19 11:37 Dose: 100 mls/hr Documented by: Potassium Chloride/Sodium Chloride (Ns-Kcl 20 Meq/L Iv Solution) 1,000 mls @ 100 mls/hr IV .BY DURATION [facility] Last Admin: 01/14/19 20:34 Dose: 100 mls/hr Documented by: Ketorolac Tromethamine (Toradol) 30 mg IVP Q6HR [facility] Stop: 01/15/19 12:01 Last Admin: 01/14/19 18:01 Dose: 30 mg Documented by: Lidocaine HCl (.Xylocaine 1% Inj (10mg/Ml) For Iv Start) 0.1 ml INTRADERMA PER PROTOCOL PRN PRN Reason: IV Start Last Admin: 01/12/19 12:21 Dose: 0.1 ml Documented by: Naloxone HCl (Narcan) 0.2 mg IV Q2M PRN PRN Reason: Opioid Reversal Non-Formulary Medication (Canagliflozin [Invokana]) 200 mg PO QAM [facility] Last Admin: 01/14/19 10:45 Dose: Not Given Documented by: Ondansetron HCl (Zofran) 4 mg IVP Q6HR PRN PRN Reason: Nausea And Vomiting Last Admin: 01/13/19 11:59 Dose: 4 mg Documented by: Pantoprazole Sodium (Protonix) 40 mg IV DAILY [facility] Last Admin: 01/14/19 10:44 Dose: Not Given Documented by: Pantoprazole Sodium (Protonix) 40 mg PO AC-BRKFST [facility] Last Admin: 01/14/19 10:45 Dose: 40 mg Documented by: Simethicone (Mylicon Drops) 40 mg PO Q6HR PRN PRN Reason: Bloating Last Admin: 01/13/19 18:07 Dose: 40 mg Documented by: Physical examination: VITAL SIGNS: 98.1, 81, 16, 150/77, 93% room air GENERAL: BMI 46.7, sitting up in a chair, comfortable. EYES: Pupils equal. Conjunctiva normal. HEENT: External appearance of nose and ears normal, oral cavity grossly normal. NECK: JVD not raised; masses not palpable. HEART: First and second heart sounds are normal; no edema. LUNGS: Respiratory rate normal; clear to auscultation. ABDOMEN: Soft, minimal tenderness, liver spleen not palpable, no masses palpable. PSYCH: Alert and oriented x3; mood and affect normal. INVESTIGATIONS, reviewed in the clinical context: [id number], 101, 131 White count 10.3 hemoglobin 13.8 creatinine 0.65 Assessment: -Status post sleeve gastrectomy. - Morbid obesity BMI 46.7 -Diabetes mellitus type 2 -GERD -Obstructive sleep apnea uses CPAP -Depression otherwise specified Plan: Care was discussed with the patient. Doing well. Encouraged to ambulate as tolerated. Accu-Cheks will be followed. Thank you Dr. Donato
[2019-01-15] MEDS: KETOROLAC 30 MG/ML 1 ML VIAL IVP SCH ×2 (05:03→11:12)
[2019-01-15] MEDS: 1: MVI, ADULT NO.4 WITH VIT K 10 ML, THIAMINE 100 MG, FOLIC ACID 1 MG, POTASSIUM CHLORID IV SCH ×12 (05:05→11:11)
[2019-01-15] MEDS: LACTATED RINGERS 1,000 ML IV SCH (06:11)
[2019-01-15 07:32] VITALS: RESP 16
[2019-01-15] MEDS: ALBUTEROL NEBULIZED 2.5 MG/3 ML INHALATION SCH ×2 (07:53→11:21)
[2019-01-15] MEDS: PANTOPRAZOLE 40 MG/10 ML VIAL IV SCH (08:35)
[2019-01-15] MEDS: CANAGLIFLOZIN 200 MG PO SCH (08:35)
[2019-01-15] MEDS: ENOXAPARIN 40 MG/0.4 ML SYRINGE SQ SCH (08:36)
[2019-01-15] MEDS: FLUoxetine HCL 20 MG CAP PO SCH (08:36)
[2019-01-15] MEDS: PANTOPRAZOLE 40 MG TABLET PO SCH (08:36)
[2019-01-15 11:30] VITALS: PULSE 88
--- NOTE | 2019-01-15 13:24 | P.DS ---
<Lila Isaac - Last Filed: 01/15/19 13:21> Providers Expected date of discharge: 01/15/19 Hospital Course: 48-year-old male who is status post laparoscopic sleeve gastrectomy with Dr. Harman. Patient had esophagram completed postoperative day one which revealed obstruction, likely due to postoperative edema. Patient was placed on Decadron. Esophagram was repeated the following morning which showed normal gastric sleeve without obstruction or significant hesitancy. Patient has been tolerating clear liquid diet. Vital signs have been stable. Pain is controlled on oral medications. He is stable for discharge home today. Discharge Diagnosis: 1. Morbid obesity, status post laparoscopic sleeve gastrectomy 2. Postoperative obstruction of gastric sleeve, likely related to edema, an unexpected but potential outcome of surgery, resolved Nurse practitioner note has been reviewed by physician. Signing provider agrees with the documented findings, assessment, and plan of care. Patient Condition at Discharge: Stable Plan - Discharge Summary Discharge Rx Participant: Yes New Discharge Prescriptions: New Bisacodyl [Dulcolax] 5 mg PO DAILY PRN #10 tablet. PRN Reason: Constipation Simethicone 40 mg/0.6 ml Drops [Mylicon Drops] 40 mg PO PCHS PRN #30 ml PRN Reason: gas Hydrocodone/Acetaminophen [Gracey 5-325] 1 tab PO Q6HR PRN 3 Days #12 tab PRN Reason: Pain Ondansetron Odt [Zofran Odt] 4 mg PO Q8HR PRN #9 tab PRN Reason: Nausea Continue Omeprazole [PriLOSEC] 20 mg PO AC-BRKFST FLUoxetine HCL [PROzac] 80 mg PO QAM No Action Canagliflozin [Invokana] 200 mg PO QAM Liraglutide [Saxenda] 1 injection SQ QAM Discharge Medication List FLUoxetine HCL [PROzac] 80 mg PO QAM 04/11/15 [History] Omeprazole [PriLOSEC] 20 mg PO AC-BRKFST 04/11/15 [History] Canagliflozin [Invokana] 200 mg PO QAM 06/24/18 [History] Liraglutide [Saxenda] 1 injection SQ QAM 11/11/18 [History] Bisacodyl [Dulcolax] 5 mg PO DAILY PRN #10 tablet. 01/15/19 [Rx] Hydrocodone/Acetaminophen [Gracey 5-325] 1 tab PO Q6HR PRN 3 Days #12 tab 01/15/19 [Rx] Ondansetron Odt [Zofran Odt] 4 mg PO Q8HR PRN #9 tab 01/15/19 [Rx] Simethicone 40 mg/0.6 ml Drops [Mylicon Drops] 40 mg PO PCHS PRN #30 ml 01/15/19 [Rx] Follow up Appointment(s)/Referral(s): Travis Willams MD [STAFF PHYSICIAN] - 1 Week [facility] [NON-STAFF] - 1 Week Activity/Diet/Wound Care/Special Instructions: No driving while taking Gracey No lifting over 10 pounds You may shower. No soaking or tub baths Very light activity until you are reevaluated at your follow up appointment with your surgeon Continue current liquid diet per bariatric center instructions <Matt Harman - Last Filed: 01/15/19 15:04> Providers Date of admission: 01/12/19 11:46 Attending physician: Matt Harman Consults: 01/12/19 14:51 Consult Physician Routine Consulting Provider: Christine Jose Consult Reason/Comments: Medical management Do you want consulting provider notified?: Yes Primary care physician: Travis Willams - Discharge Diagnosis(es) (1) Morbid obesity with BMI of 45.0-49.9, adult Current Visit: No Status: Acute Hospital Course: As above. Patient doing well today. Tolerating 25 ounces of liquid so far. We'll discharge. Follow-up one week.
[2019-01-15 15:02] VITALS: BP 158/97; TEMP 98.3
== END 2019-01-15 16:00 | disposition home or self-care (01) | DRG 620 ==
LOC: 2ORMAIN 01-12 11:46 → 4SSUR 01-12 17:31
PROVIDERS: ADMIT Surgery; ATTEND Surgery
PROC: 0DB64Z3 Excision of Stomach, Percutaneous Endoscopic Approach, Vertical (ICD-10-PCS; principal; 2019-01-12 12:45)
DX: E66.01 Morbid (severe) obesity due to excess calories (principal); K91.30 Postprocedural intestinal obstruction, unspecified as to partial versus complete; K95.89 Other complications of other bariatric procedure; M54.9 Dorsalgia, unspecified; E11.9 Type 2 diabetes mellitus without complications; F32.9 Major depressive disorder, single episode, unspecified; F41.9 Anxiety disorder, unspecified; G47.33 Obstructive sleep apnea (adult) (pediatric); G89.29 Other chronic pain; K29.50 Unspecified chronic gastritis without bleeding; K21.9 Gastro-esophageal reflux disease without esophagitis; Z68.42 Body mass index [BMI] 45.0-49.9, adult; Z79.84 Long term (current) use of oral hypoglycemic drugs; Z87.891 Personal history of nicotine dependence
CPT/HCPCS: 74240; 80051; 82310; 82565; 83036; 83735; 84100; 84520; 85025; 88307; 94640; 94760

== ENCOUNTER → 2019-01-07 | Outpatient (CLI) | payer BC ==
[2019-01-07 10:59] LABS: Basophils % (A) 0 %; Eosinophils # (A) 0.1 k/uL (0-0.7); Eosinophils % (A) 2 %; HCT 45.5 % (39.0-53.0); HGB 14.4 gm/dL (13.0-17.5); Hypochromasia Slight; Lymphocytes # (A) 2.4 k/uL (1.0-4.8); Lymphocytes % (A) 27 %; MCH 26.6 pg (25.0-35.0); MCHC 31.6 g/dL (31.0-37.0); MCV 84.3 fL (80.0-100.0); Mean Platelet Volume 6.1; Monocytes # (A) 0.4 k/uL (0-1.0); Monocytes % (A) 4 %; Neutrophils # (A) 5.8 k/uL (1.3-7.7); Neutrophils % (A) 65 %; Platelet Count 275 k/uL (150-450); RDW 13.3 % (11.5-15.5)
[2019-01-07 11:17] LABS: ALT 45 U/L (21-72); AST 49 U/L (17-59); African American GFR (CKD) >90 (>60 ml/min/1.73 sqM); Albumin 4.5 g/dL (3.5-5.0); Alkaline Phosphatase 81 U/L (38-126); Anion Gap 11 mmol/L; Blood Urea Nitrogen 22 mg/dL (9-20); Calcium 9.5 mg/dL (8.4-10.2); Carbon Dioxide 25 mmol/L (22-30); Chloride 104 mmol/L (98-107); Glucose 76 mg/dL (74-99); Potassium 4.5 mmol/L (3.5-5.1); Sodium 140 mmol/L (137-145); Total Bilirubin 0.6 mg/dL (0.2-1.3); Total Protein 7.8 g/dL (6.3-8.2)
== END ==
LOC: LABPAT 09:54
PROVIDERS: ATTEND Surgery
DX: Z01.812 Encounter for preprocedural laboratory examination (principal)
CPT/HCPCS: 36415; 80053; 85025

== ENCOUNTER → 2019-01-20 | Outpatient (CLI) | payer BC ==
[2019-01-20 14:34] VITALS: BP 118/86; PULSE 86; TEMP 98.2; BMI 42.5
--- NOTE | 2019-01-20 15:13 | P.BASOAP ---
Subjective Progress Note Date: 01/20/19 Principal diagnosis: Morbid obesity Patient returns 1 week post sleeve gastrectomy. Doing well since discharge. He is taking in over 60 ounces of liquids daily and over 80 g of protein daily. Mild dysphagia if he drinks too quickly. Minimal pain during those episodes. Otherwise has no discomfort. Vitals are stable. No fevers. No significant GERD symptoms. Remains on antiacids. He has lost 10 pounds since surgery. Patient had significant weight loss preoperatively. Objective - Vital Signs Vital signs: Vital Signs Temp 98.2 F 01/20/19 14:29 Pulse 86 01/20/19 14:29 Resp BP 118/86 01/20/19 14:29 Pulse Ox Intake & Output 01/19/19 01/20/19 01/20/19 18:59 06:59 18:59 Weight 142.428 kg - Exam Abdomen: Soft, nondistended, incisions clean and dry Assessment/Plan (1) Morbid obesity with BMI of 45.0-49.9, adult Narrative/Plan: Overall patient doing well. Continue liquid diet. May resume work next week. Continue antiacids for now. Monitor protein and liquid intake. Follow-up 2-3 weeks. Check one month labs at that time. Dietary evaluation today. Plan: Date: 01/20/19 Initial Weight: 164.285 kg Initial BMI: 49.1 Current Weight: 142.428 kg Current BMI: 42.5 Type of Surgery: Total Volume in Band: Previous Volume: Volume Removed: Volume Added: Band Size:
== END | disposition home or self-care (01) ==
LOC: BARWHC3 14:08
PROVIDERS: ATTEND Surgery
DX: E66.01 Morbid (severe) obesity due to excess calories (principal); Z68.41 Body mass index [BMI] 40.0-44.9, adult; R13.10 Dysphagia, unspecified; R63.4 Abnormal weight loss; Z98.84 Bariatric surgery status
CPT/HCPCS: 97803; 99211

== ENCOUNTER → 2019-02-24 | Outpatient (CLI) | payer BC ==
--- NOTE | 2019-02-24 15:26 | P.BASOAP ---
Subjective Progress Note Date: 02/24/19 Principal diagnosis: Morbid obesity Patient returns for bariatric evaluation. Last seen 1 month ago. Since that time the patient has lost approximately 17 pounds. Only has had 2 episodes of vomiting since surgery. No significant heartburn symptoms. No abdominal pain currently. Patient is due for one month labs. Objective - Exam Abdomen: Soft, nontender, nondistended, incisions clean and dry Assessment/Plan (1) Morbid obesity with BMI of 45.0-49.9, adult Narrative/Plan: Patient overall doing well. Continue dietary and exercise regimen. Continue antiacids. Check one month labs. Follow-up 4-6 weeks. Plan: Date: Initial Weight: 164.285 kg Initial BMI: Current Weight: Current BMI: Type of Surgery: Total Volume in Band: Previous Volume: Volume Removed: Volume Added: Band Size:
[2019-02-24 15:29] VITALS: BP 110/71; PULSE 70; RESP 16; TEMP 98.6; BMI 40.2
== END | disposition home or self-care (01) ==
LOC: BARWHC3 14:55
PROVIDERS: ATTEND Surgery
DX: E66.01 Morbid (severe) obesity due to excess calories (principal); Z68.41 Body mass index [BMI] 40.0-44.9, adult
CPT/HCPCS: 97803; 99211

== ENCOUNTER → 2019-04-14 | Outpatient (CLI) | payer BC ==
[2019-04-14 16:02] VITALS: BP 118/79; PULSE 77; TEMP 98.2; BMI 39.0
--- NOTE | 2019-04-14 16:32 | P.BASOAP ---
Subjective Progress Note Date: 04/14/19 Principal diagnosis: Morbid obesity Patient returns today for 3 month post sleeve visit. Doing well. 9 pound weight loss. Some decreased activity over the holidays. Still has decent restriction. Denies nausea vomiting. No reflux. Still on antiacids. Denies pain. Never did have his 1 month labs he states. Objective - Vital Signs Vital signs: Vital Signs Temp 98.2 F 04/14/19 15:57 Pulse 77 04/14/19 15:57 Resp BP 118/79 04/14/19 15:57 Pulse Ox Intake & Output 04/13/19 04/14/19 04/14/19 18:59 06:59 18:59 Weight 130.635 kg - Exam Abdomen: Soft, nontender, nondistended Assessment/Plan (1) Morbid obesity with BMI of 45.0-49.9, adult Narrative/Plan: Patient doing well at this time. Continue dietary and exercise regimen. Will increase his level of exercise. We'll check 3 months labs proved follow-up 1 month. Plan: Date: 04/14/19 Initial Weight: 164.285 kg Initial BMI: 49.1 Current Weight: 130.635 kg Current BMI: 39.0 Type of Surgery: Vertical Sleeve Gastrectomy Total Volume in Band: Previous Volume: Volume Removed: Volume Added: Band Size:
[2019-04-14 17:28] LABS: HCT 43.8 % (39.0-53.0); HGB 13.6 gm/dL (13.0-17.5); MCH 26.8 pg (25.0-35.0); MCV 86.4 fL (80.0-100.0); Mean Platelet Volume 7.7; Platelet Count 242 k/uL (150-450); RBC 5.07 m/uL (4.30-5.90); RDW 13.2 % (11.5-15.5); WBC 9.3 k/uL (3.8-10.6)
[2019-04-15 00:07] LABS: African American GFR (CKD) 129.3 (60.0-200.0); Albumin 4.4 g/dL (3.80-4.90); Albumin/Globulin Ratio 2.32 (1.60-3.17); Anion Gap 9.8 mmol/L (4.00-12.00); Carbon Dioxide 24.2 mmol/L (21.6-31.8); Globulin 1.9 g/dL (1.6-3.3); Non-African American GFR(CKD) 111.6 (60.0-200.0); Total Bilirubin 0.3 mg/dL (0.2-1.2); Total Protein 6.3 g/dL (6.2-8.2)
== END | disposition home or self-care (01) ==
LOC: BARWHC3 15:42
PROVIDERS: ATTEND Surgery
DX: E66.01 Morbid (severe) obesity due to excess calories (principal); Z68.42 Body mass index [BMI] 45.0-49.9, adult; K90.89 Other intestinal malabsorption; E55.9 Vitamin D deficiency, unspecified
CPT/HCPCS: 80053; 82306; 82607; 82746; 83540; 84425; 85027; 99211

== ENCOUNTER → 2019-06-02 | Outpatient (CLI) | payer BC ==
[2019-06-02 14:08] VITALS: BP 122/77; PULSE 72; RESP 16; TEMP 98.6; BMI 38.6
--- NOTE | 2019-06-02 15:26 | P.BASOAP ---
Subjective Progress Note Date: 06/02/19 Principal diagnosis: Morbid obesity Patient returns for recheck. Last seen in April. He had labs drawn through the [facility] 2 weeks ago. His vitamin D was low at 19. Otherwise doing well. No nausea or vomiting. No GERD symptoms. He was started on 50,000 units weekly of vitamin D. Objective - Vital Signs Vital signs: Vital Signs Temp 98.6 F 06/02/19 14:06 Pulse 72 06/02/19 14:06 Resp 16 06/02/19 14:06 BP 122/77 06/02/19 14:06 Pulse Ox Intake & Output 06/01/19 06/02/19 06/02/19 18:59 06:59 18:59 Weight 129.274 kg - Exam Abdomen: Soft, nontender, nondistended Assessment/Plan (1) Morbid obesity with BMI of 45.0-49.9, adult Narrative/Plan: Patient doing well at this time. Continue vitamin D supplementation. Patient will increase his exercise routine at this time. Return visit in 6-8 weeks. Plan: Date: 06/02/19 Initial Weight: 164.285 kg Initial BMI: 49.1 Current Weight: 129.274 kg Current BMI: 38.6 Type of Surgery: Vertical Sleeve Gastrectomy Total Volume in Band: Previous Volume: Volume Removed: Volume Added: Band Size:
== END | disposition home or self-care (01) ==
LOC: BARWHC3 13:50
PROVIDERS: ATTEND Surgery
DX: E66.01 Morbid (severe) obesity due to excess calories (principal); Z68.42 Body mass index [BMI] 45.0-49.9, adult; Z79.899 Other long term (current) drug therapy
CPT/HCPCS: 99211

== ENCOUNTER 2019-08-12 23:34 | Emergency (ER) | payer BC ==
[2019-08-12 23:43] VITALS: BP 151/97; PULSE 58; RESP 18; TEMP 98.2
--- NOTE | 2019-08-13 00:07 | ED ---
Upper Extremity HPI - General Chief Complaint: Extremity Injury, Upper Stated Complaint: Thumb Injury Time Seen by Provider: 08/12/19 23:45 Source: patient, RN notes reviewed Mode of arrival: ambulatory Limitations: no limitations - History of Present Illness Initial Comments: 48-year-old male present with chief complaint of left thumb injury. Patient states that he rested with trailer ramp. Patient states it is up-to-date last one year. He states that the nail ruptured some blood out. He states that he still been throbbing that he was concerned. Patient offers no other complaints. He does have full range of motion no paresthesias. - Related Data Home Medications Medication Instructions Recorded Confirmed Omeprazole [PriLOSEC] 20 mg PO AC-BRKFST 04/11/15 06/02/19 Bariatric Advantage Multivitam 1 tab PO DAILY 04/14/19 06/02/19 Bariatric Iron W/Vit C 325 mg PO DAILY 04/14/19 06/02/19 Calcium Citrate/Vitamin D3 600 mg PO BID 04/14/19 06/02/19 [Calcium Cit 315-Vit D3 250mg Tab] FLUoxetine HCL [PROzac] 80 mg PO DAILY 04/14/19 06/02/19 Allergies Allergy/AdvReac Type Severity Reaction Status Date / Time meperidine HCl [From Demerol] Allergy Unknown Verified 08/12/19 23:43 Childhood Review of Systems ROS Statement: Those systems with pertinent positive or pertinent negative responses have been documented in the HPI. ROS Other: All systems not noted in ROS Statement are negative. Past Medical History Past Medical History: Diabetes Mellitus, GERD/Reflux, Sleep Apnea/CPAP/BIPAP Additional Past Medical History / Comment(s): ON RX FOR "PRE-DIABETIC," PER PATIENT. USES CPAP. History of Any Multi-Drug Resistant Organisms: None Reported Past Surgical History: Appendectomy, Back Surgery, Bariatric Surgery, Orthopedic Surgery Additional Past Surgical History / Comment(s): LUMBAR DISCETOMY December,. ORIFLT Ankle, BUT HARDWARE REMOVED. AGUEDA ROTATOR CUFF REPAIR. RT clavicle REPAIR.. Throat surgery - UPPP (PATIENT STATES IT DID NOT HELP AND WAS VERY PAINFUL). COLONOSCOPY. sleeve gastrectomy 01-12-19 (dr. long) Past Anesthesia/Blood Transfusion Reactions: No Reported Reaction Past Psychological History: Depression Smoking Status: Former smoker Past Alcohol Use History: Rare Past Drug Use History: None Reported - Past Family History Mother Family Medical History: No Reported History General Exam Limitations: no limitations General appearance: alert, in no apparent distress Head exam: Present: atraumatic, normocephalic, normal inspection Respiratory exam: Present: normal lung sounds bilaterally. Absent: respiratory distress, wheezes, rales, rhonchi, stridor Cardiovascular Exam: Present: regular rate, normal rhythm, normal heart sounds. Absent: systolic murmur, diastolic murmur, rubs, gallop, clicks Extremities exam: Present: other (Left thumb there is a subungual hematoma there is an area that ruptured, full range of motion neurovascular intact there is moderate tenderness the distal portion of the digit) Course Vital Signs 08/12/19 23:41 Temperature 98.2 F Pulse Rate 58 L Respiratory 18 Rate Blood Pressure 151/97 O2 Sat by Pulse 97 Oximetry Medical Decision Making - Medical Decision Making X-ray of the thumb shows no acute fracture. Patient does have a small subungual hematoma wasn't helping. Patient provided pain control. We discussed icing. Return parameters were discussed. Disposition Clinical Impression: Crushing injury of left thumb, Subungual hematoma of left thumb Disposition: HOME SELF-CARE Condition: Stable Instructions (If sedation given, give patient instructions): Crush Injury (ED) Additional Instructions: Please return to the Emergency Department if symptoms worsen or any other concerns. Is patient prescribed a controlled substance at d/c from ED?: No Referrals: Travis Willams MD [Primary Care Provider] - 1-2 days Time of Disposition: 00:18
--- NOTE | 2019-08-13 00:10 | XR ---
EXAMINATION TYPE: XR finger LT DATE OF EXAM: 08/12/2019 COMPARISON: NONE HISTORY: Laceration TECHNIQUE: 3 views FINDINGS: There is mild spurring at the IP joint of the thumb. I see no evidence of radiopaque foreig n body. There is no sign of fracture nor dislocation. There is mild spurring at the first carpometaca rpal joint. IMPRESSION: Mild osteoarthritis. No fracture seen.
[2019-08-13] MEDS ORDERED: ACET/COD 300 MG/30 MG STARTER PACK 6 TAB BTL PO STA (00:17)
[2019-08-13] MEDS ORDERED: HYDROcodone/APAP 5-325MG 1 EACH TAB PO STA (00:17)
== END 2019-08-13 01:02 | disposition home or self-care (01) ==
LOC: EC 23:34
DX: S60.112A Contusion of left thumb with damage to nail, initial encounter (principal); S67.02XA Crushing injury of left thumb, initial encounter; K21.9 Gastro-esophageal reflux disease without esophagitis; G47.30 Sleep apnea, unspecified; F32.9 Major depressive disorder, single episode, unspecified; Z79.899 Other long term (current) drug therapy; Z88.5 Allergy status to narcotic agent; Z87.891 Personal history of nicotine dependence; Z98.84 Bariatric surgery status; Z98.890 Other specified postprocedural states; W23.0XXA Caught, crushed, jammed, or pinched between moving objects, initial encounter
CPT/HCPCS: 99283

== ENCOUNTER → 2020-02-17 | Outpatient (CLI) | payer BC ==
--- NOTE | 2020-02-17 23:06 | CT ---
EXAMINATION TYPE: CT abdomen pelvis wo con DATE OF EXAM: 02/17/2020 COMPARISON: None INDICATION: Lt side abdominal pain x3 weeks. DLP: 1673.90 mGycm, Automated exposure control for dose reduction was used. CONTRAST: 0 mL of Isovue 300. Study performed without Oral Contrast TECHNIQUE: Axial images were obtained from above the diaphragm to the pubic rami in the axial plane a t 5 mm thick sections. Reconstructed images are reviewed on the computer in the coronal plane. FINDINGS: Limited CT sections are obtained the lung bases. The lung bases are clear. CT ABDOMEN: Gastric Slee ve has been performed. Liver: Normal Spleen: Normal Pancreas: Normal Adrenal glands: The adrenal glands are normal. Gallbladder: Normal Kidneys: No masses are evident. No hydronephrosis is present. No cysts are present. No renal or ur eteral stones are evident. Aorta: Normal Inferior vena cava: Normal. CT PELVIS: Loops of bowel within the abdomen and pelvis are normal. Study is without oral contrast limiting bowel evaluation. Appendix: Not identified. No suspicious inflammatory changes or dilated tubular structures are eviden t. Urinary bladder: Decompressed with limited evaluation Genitourinary structures: Prostate appears unremarkable Osseous structures: No suspicious lytic or sclerotic lesions. IMPRESSIONS: 1. Normal noncontrast CT abdomen and pelvis.
== END | disposition home or self-care (01) ==
LOC: RADCTMAIN 18:16
PROVIDERS: ATTEND Family Medicine
DX: R10.9 Unspecified abdominal pain (principal)
CPT/HCPCS: 74176

== ENCOUNTER → 2020-03-15 | Day surgery (SDC) | payer BC ==
[2020-03-11 15:25] VITALS: BMI 40.8
[~2020-03-15] MED LIST changes: +LIDOCAINE 1% (10MG/ML) FOR IV START INTRADERMA PRN; +PROPOFOL 10 MG/ML 20 ML VIAL IV ONE
[2020-03-15 12:56] VITALS: RESP 17; TEMP 97.4
--- NOTE | 2020-03-15 14:12 | P.PCN ---
Date of Procedure: 03/15/20 Procedure(s) Performed: BRIEF HISTORY: Patient is a 49-year-old pleasant white male scheduled for an elective colonoscopy as a part of screening for colorectal neoplasia. PROCEDURE PERFORMED: Colonoscopy with snare polypectomy. PREOPERATIVE DIAGNOSIS: Screening for colon cancer. IV sedation per Anesthesia. PROCEDURE: After informed consent was obtained, the patient, was brought into the endoscopy unit. IV sedation was administered by Anesthesia under continuous monitoring. Digital rectal examination was normal. Initially the Olympus CF-160 flexible video colonoscope was then inserted in the rectum, gradually advanced into the cecum without any difficulty. Careful examination was performed as the scope was gradually being withdrawn. Ileocecal valve and the appendiceal orifice were visualized and appeared normal. Prep was excellent. Mucosa of the cecum, ascending colon, transverse colon, appeared normal. The descending colon there was a 5 mm polyp removed by snare polypectomy. Rest of the descending colon, sigmoid colon, and rectum appeared normal. The distal rectum there was a 5 mm and 7 mm polyp removed by snare polypectomy. Retroflexion was performed in the rectum and no lesions were seen. The patient tolerated the procedure well. IMPRESSION: 5 mm descending colon polyp status post polypectomy 5 millimeters and 7 mm distal rectal polyps status post polyp RECOMMENDATIONS: Findings of this examination were discussed with the patient as well as his family.. He was advised to follow with the biopsy results. If the biopsy shows an adenoma he can have a repeat colonoscopy in 5 years
[2020-03-15 14:24] VITALS: BP 135/78; PULSE 65
== END ==
LOC: ORWHC2ENDO 12:12
PROVIDERS: ATTEND Internal Medicine Gastroenterology
DX: Z12.11 Encounter for screening for malignant neoplasm of colon (principal); K63.5 Polyp of colon; K62.1 Rectal polyp; K21.9 Gastro-esophageal reflux disease without esophagitis; E78.5 Hyperlipidemia, unspecified; G47.33 Obstructive sleep apnea (adult) (pediatric); Z99.89 Dependence on other enabling machines and devices; E66.9 Obesity, unspecified; Z68.41 Body mass index [BMI] 40.0-44.9, adult; F32.9 Major depressive disorder, single episode, unspecified; Z79.899 Other long term (current) drug therapy; Z88.5 Allergy status to narcotic agent
CPT/HCPCS: 88305; 45385; J2704

== ENCOUNTER → 2020-06-22 | Outpatient (CLI) | payer BC ==
--- NOTE | 2020-06-22 15:10 | US ---
EXAMINATION TYPE: US abdomen limited DATE OF EXAM: 06/22/2020 COMPARISON: NONE CLINICAL HISTORY: R19.00 Intra-abdominal and pelvic swelling, mass. Patient states feeling a "mass" i n left flank area, around ribs. Area of concern scanned at LUQ area. No prominent masses or lesions seen. Thickness visualized comp ared to contralateral side. IMPRESSION: 1. Normal soft tissue ultrasound.
== END ==
LOC: RADUSWWP 12:43
PROVIDERS: ATTEND Family Medicine
DX: R19.00 Intra-abdominal and pelvic swelling, mass and lump, unspecified site (principal)
CPT/HCPCS: 76705

== ENCOUNTER → 2022-02-27 | Outpatient (CLI) | payer OTHER ==
--- NOTE | 2022-02-28 08:33 | MR ---
EXAMINATION TYPE: MR lumbar spine wo con DATE OF EXAM: 02/27/2022 COMPARISON: CT abdomen and pelvis February 17, 2020 HISTORY: Low back pain into left leg, Hx of diskectomy. Radiculopathy per order. TECHNIQUE: Multiplanar, multisequence imaging of the lumbar spine is performed without IV contrast. FINDINGS: Sagittal images of the lumbar spine show vertebral body height is to remain satisfactory. M ultilevel subtle spondylolisthesis redemonstrated with grade 1 retrolisthesis L1 on L2, L2 on L3, and L3 on L4 noted. Multilevel disc desiccation and multilevel disc space narrowing. Moderate to border line severe disc space narrowing with heterogeneous Modic type II endplate changes noted at L4-L5 lev el. The conus medullaris is normal in position and signal ending mid L1 level. Moderate multilevel an terior spurring. There is posterior disc herniation T11-T12 level sagittal image 8 effacing anterolat eral thecal sac. Axial images at T12-L1 level shows mild facet arthropathy. Axial images at L1-L2 level shows subtle spondylolisthesis with mild broad disc bulge mildly effacing the anterior thecal sac. There is mild to moderate facet arthropathy bilaterally. Spinal canal is pr eserved. Axial images at L2-L3 level show spondylolisthesis with mild broad disc bulge and mild/moderate right greater than left facet arthropathy. Patent bilateral neural foramina. No significant change from pr ior. Axial images at the L3-L4 level shows moderate broad-based disc bulge and [id number] facet arth ropathy and ligamentum flavum hypertrophy with some effacement of the left posterolateral thecal sac. There is mild bilateral neural foraminal narrowing. Axial images at the L4-L5 level show left-sided laminectomy defect. There is moderate facet arthropat hy. There is moderate broad disc bulge. Spinal canal is preserved. There is mild to moderate bilatera l neural foraminal narrowing noted. Axial images at L5-S1 level moderate to advanced facet arthropathy bilaterally. There is mild/moderat e broad disc bulge. Spinal canal is preserved. Bilateral neural foramina are patent. Paraspinal muscle bulk is preserved. IMPRESSION: Multilevel spondylolisthesis and degenerative change in the lumbar spine as detailed abov e
== END | disposition home or self-care (01) ==
LOC: RADMRIMAIN 15:57
DX: M43.16 Spondylolisthesis, lumbar region (principal); M47.26 Other spondylosis with radiculopathy, lumbar region
CPT/HCPCS: 72148

== ENCOUNTER → 2022-03-28 | Outpatient (CLI) | payer OTHER ==
[2022-03-28 08:14] VITALS: BP 133/89; PULSE 74; RESP 18
--- NOTE | 2022-03-28 08:29 | P.PAINCN ---
History of Present Illness - Reason for Consult Consult date: 03/28/22 - History of Present Illness This is initial consultation visit for this 51 years old male with a chronic history of severe low back pain, started in 1997 after heavy lifting "he was changing tires for the truck, and he reported that the pain is constant increased with activity interfere with the quality of life, patient had physical therapy and multiple pain injections, and he continued to have pain and in 2014 on he had lumbar laminectomy surgery, he reported that he continued to have severe low back pain after the surgery , and he is currently on [place] 5/325 and he continued to have. He tried physical therapy and chiropractics without any benefit he tried ice and heat without any benefit, he feels occasional weakness in his lower extremity mainly on the left side, he reported that the pain is constant radiated to the posterior aspect of his lower extremity, he denies any fever or night sweats. Denies any change in the bowel movement or urination . Past Medical History Past Medical History: GERD/Reflux, Hyperlipidemia, Sleep Apnea/CPAP/BIPAP Additional Past Medical History / Comment(s): Hx Acid Reflux, no current problems. USES CPAP. History of Any Multi-Drug Resistant Organisms: None Reported Past Surgical History: Appendectomy, Back Surgery, Bariatric Surgery, Orthopedic Surgery Additional Past Surgical History / Comment(s): LUMBAR DISCETOMY, ORIF LEFT Ankle, HARDWARE REMOVED, BILATERAL ROTATOR CUFF REPAIR, RIGHT clavicle REPAIR, throat surgery - UPPP, COLONOSCOPY, Sleeve Gastrectomy. Past Anesthesia/Blood Transfusion Reactions: No Reported Reaction Past Psychological History: Depression Smoking Status: Former smoker Past Alcohol Use History: Rare Additional Past Alcohol Use History / Comment(s): SMOKED 22 YEARS, 1 PPD, QUIT 04/2008. Past Drug Use History: None Reported - Past Family History Mother Family Medical History: No Reported History Medications and Allergies Home Medications Medication Instructions Recorded Confirmed Type Omeprazole [PriLOSEC] 20 mg PO DAILY 04/11/15 03/11/20 History FLUoxetine HCL [PROzac] 80 mg PO DAILY 04/14/19 03/11/20 History Allergies Allergy/AdvReac Type Severity Reaction Status Date / Time meperidine HCl [From Demerol] Allergy Unknown Verified 03/28/22 08:16 Childhood Physical Exam Vitals: Vital Signs Pulse Resp BP Pulse Ox 03/28/22 08:05 74 18 133/89 94 L Intake and Output 03/27/22 03/28/22 03/28/22 22:59 06:59 14:59 Other: Weight 149.685 kg Physical Examinations : -Constitutiona : Cooperative , not in acute distress . -HEENT : nech : supple , no Lymphadenopathy , normal thyroid size . : eyes : no ptosis , no icterus, no photophobia . - neurologic : Cranial nerve II to XII intact , no focal neurological deffecit . -psychatric : alert , oriented X 3 , appropriate affect , intact judgment and insight . -Lymphatic : no Lymphadenopathy . - musculoskeltal : Cervical Spine motor stregnth in the deltoid and biceps, normal right side , normal Left side motor stregnth biceps and the wrist extensors normal right side ,normal left side . motor stregnth in the triceps muscle . normal Right side , normal Left side deep tendon reflexes normal at the biceps , normal at Brachioradialis , normal at triceps. cervical facet loading test: Positive Bilaterally Spurling test= positive Right , positive left. Neck distraction test= positive Right , positive left. Allie sign= positive right, positive left . Lumber spine moter stegnth lower extremities ,thigh and legs 5/5 Right side , 5/5 Left side deep tendon reflexes : normal Knee Jerk , normal ankle Jerk lumber facet Loading Test =positive Right , positive Left Range of motion of the lumbar spine Flexion 30 degrees, extension 10 degrees strait leg raising test = positive at 45 degree Fabere test= positive Right , and positive LT . tenderness over the Sacroiliac joint on the Right , and Left sides Results Comments: MRI of the lumbar spine without contrast done 02/27/2022 L4 5 left-sided laminectomy multilevel lumbar bulging disc disease and multilevel lumbar facet arthropathy and multilevel lumbar degenerative disc disease Assessment and Plan Plan: Assessment and plan= chronic low back pain secondary to lumbar degenerative disc disease , lumbar spondylosis with lumbar facet arthropathy . Previous lumbar laminectomy surgery Patient will be good candidate to have diagnostic medial branch block lumbar area at L4 5 and L5-S1 bilaterally x2 minutes expulsive will proceed with RFA of the medial branch lumbar area, procedure risk and benefits and alternatives discussed with the patient he agreed with proceeding . I have spent 35 minutes on patient care today. The time was used to review the medical records including relevant urine studies and Prescription history (MAPs), review of the available imaging, evaluation and examination of the patient, coordination of care with the medical staff and if applicable referring physicians, as well as creation of the medical record. Maps were checked and appropriate, opioid start talking form is on file and updated, urin , Time with Patient: Greater than 30 PQRS Measure Charge Sheet Mode of Arrival: Ambulatory - Pain Location Bilateral Lower Back Non-Pharmacological Interventions: Heat, Ice, Physical Therapy, Position/Reposition, Sitting Pharmacological Interventions: Medication, PRN Medication, Scheduled Medication PQRS Narrative: Smoking Status Former smoker Blood Pressure 133/89 Pain Intensity [Bilateral 7 Lower Back] Scale Used Numeric (1 - 10) Hx Alcohol Use (MH) No Home Medications: Ambulatory Orders Omeprazole [PriLOSEC] 20 mg PO DAILY 04/11/15 FLUoxetine HCL [PROzac] 80 mg PO DAILY 04/14/19
== END ==
LOC: PNWHC3 07:42
PROVIDERS: ATTEND Specialist
DX: K21.9 Gastro-esophageal reflux disease without esophagitis (principal); E78.5 Hyperlipidemia, unspecified; M47.816 Spondylosis without myelopathy or radiculopathy, lumbar region; M96.1 Postlaminectomy syndrome, not elsewhere classified; M51.36 Other intervertebral disc degeneration, lumbar region; G89.29 Other chronic pain; Z87.891 Personal history of nicotine dependence; Z88.8 Allergy status to other drugs, medicaments and biological substances; Z98.890 Other specified postprocedural states
CPT/HCPCS: 99211

== ENCOUNTER 2022-04-27 10:40 | Day surgery (SDC) | payer OTHER ==
[~2022-04-27 10:40] MED LIST changes: -PROPOFOL 10 MG/ML 20 ML VIAL IV ONE
[2022-04-27 10:58] VITALS: RESP 16; TEMP 97.2
[2022-04-27] MEDS ORDERED: fentaNYL (PF) 50 MCG/ML 2 ML AMP ONE (11:17)
[2022-04-27] MEDS ORDERED: methylPREDNISolone ACETATE 40 MG/ML 1 ML VIAL ONE (11:17)
[2022-04-27] MEDS ORDERED: ROPIVACAINE 5 MG/ML 20 ML AMPULE ONE (11:17)
[2022-04-27] MEDS ORDERED: MIDAZOLAM 2 MG/2 ML VIAL ONE (11:17)
--- NOTE | 2022-04-27 11:37 | P.PCN ---
Date of Procedure: 04/27/22 Procedure(s) Performed: PREOPERATIVE DIAGNOSIS : 1- Lumbar spondylosis with Facet Arthropathy without myelopathy . 2- Lumber degenerative disc disease POSTOPERATIVE DIAGNOSIS: 1- Lumbar spondylosis with Facet Arthropathy without myelopathy . 2- Lumber degenerative disc disease PROCEDURE: Diagnostic bilateral L3 , L4 , and L5 medial branch block under fluoroscopy guidance(fluoroscopy images available in the radiology Department ) ( To target the facet joint between bilateral L4-5 , and L5-S1 )# 1st ANESTHESIA:, Monitored anesthesia care as per anesthesia department. EBL: Minimal COMPLICATION: None PROCEDURE INDICATION: Chronic low back pain secondary to Facet arthropathy unresponsive to conservative treatment. PROCEDURE DESCRIPTION: the patient was seen and identified in the preop holding area , risks and benefits and possible complications of the procedure and alternative were discussed with the patient, and the patient agreed to proceed with the procedure and signed the consent and vital signs monitored during the procedure and fluoroscopy was used to maximize the benefit and accuracy of the needle placement, and sedation was given to decrease patient anxiety, patient was taken to the procedure room and placed in prone position vital signs monitored in the back prepped with chlorhexidine X3 then under strict sterile technique using a right oblique fluoroscopy ,the junction of the transverse process and the superior articulating process of the right L3 , L4 , and L5 vertebra which corresponding to the fluoroscopy image of the eye of the [place] dog on the block side for the medial branches and subsequently , after local infiltration of skin and subcu tissuies with Ropivacaine 0.5 % , one mL at each level ,then 22-gauge 5 inches long Quincke-type needles , 3 needle was used , each one of them placed at the junction of the base of the transverse process and the superior articular process at the appropriate level, and the needle was advanced until the periosteum contacted, needle placement confirmed with AP oblique and lateral view and after appropriate needle placement confirmed, and after negative aspiration for heme and CSF and there was no paresthesia 1-1/2 mL of Ropivacaine 0.5% mixed with 20 mg Depo-Medrol , then half mL injected at each level after negative aspiration the needle subsequently removed and the same procedure repeated for the left side at left side at L3 , L4 and L5 levels. At the end of the procedure and the needles removed and a bandage applied after the skin was cleaned the cleaning solution patient taken to recovery room in stable condition and monitors in the recovery room for 20-30 minutes and discharged home in stable condition after discharge criteria met and patient will follow up with the pain clinic in 2-4 weeks
[2022-04-27] MEDS ORDERED: IV FLUID CONTINUATION 500 ML IV ONE (11:39)
[2022-04-27 12:03] VITALS: BP 121/77; PULSE 68
--- NOTE | 2022-04-27 12:12 | FL ---
EXAMINATION TYPE: FL guided pain mgmt statistic DATE OF EXAM: 04/27/2022 CLINICAL HISTORY: Low back pain. TECHNIQUE: Fluoroscopy. COMPARISON: None. FINDINGS: Fluoroscopic guidance was provided during pain relief procedure performed by Dr. Herrera . A total of 39 seconds of fluoroscopic time was utilized during the procedure and 4 spot images are acquired. Images acquired shows needle localization at several levels in the cervical spine. IMPRESSION: As Above.
== END 2022-04-27 12:11 | disposition home or self-care (01) ==
LOC: ORPAIN 10:40
PROVIDERS: ATTEND Specialist
DX: M47.816 Spondylosis without myelopathy or radiculopathy, lumbar region (principal); M51.36 Other intervertebral disc degeneration, lumbar region; G89.29 Other chronic pain; E78.5 Hyperlipidemia, unspecified; G47.33 Obstructive sleep apnea (adult) (pediatric); K21.9 Gastro-esophageal reflux disease without esophagitis; Z90.49 Acquired absence of other specified parts of digestive tract; Z79.1 Long term (current) use of non-steroidal anti-inflammatories (NSAID); Z88.5 Allergy status to narcotic agent; Z98.890 Other specified postprocedural states; Z79.899 Other long term (current) drug therapy
CPT/HCPCS: 64493; 64494 ×2; J2250; J1030; J3010; J2795

== ENCOUNTER 2022-06-15 06:12 | Day surgery (SDC) | payer OTHER ==
[~2022-06-15 06:12] MED LIST changes: -LIDOCAINE 1% (10MG/ML) FOR IV START INTRADERMA PRN
[2022-06-15 06:48] VITALS: TEMP 97.8
[2022-06-15] MEDS ORDERED: MIDAZOLAM 2 MG/2 ML VIAL ONE (06:59)
[2022-06-15] MEDS ORDERED: TRIAMCINOLONE ACETONIDE 40 MG/ML 1 ML VIAL ONE (06:59)
[2022-06-15] MEDS ORDERED: ROPIVACAINE 5 MG/ML 20 ML AMPULE ONE (06:59)
--- NOTE | 2022-06-15 07:25 | P.PCN ---
Date of Procedure: 06/15/22 Pathology: none sent Condition: stable Description of Procedure: PREOPERATIVE DIAGNOSIS : 1- Lumbar spondylosis with Facet Arthropathy without myelopathy . 2- Lumber degenerative disc disease POSTOPERATIVE DIAGNOSIS: 1- Lumbar spondylosis with Facet Arthropathy without myelopathy . 2- Lumber degenerative disc disease PROCEDURE: Diagnostic bilateral L4 -5 , and L5-S1 medial branch block under fluoroscopy Physician: Maynor Husain MD ANESTHESIA: Local with 1% lidocaine; IV moderate conscious sedation with Versed 2 mg by the Anesthesia Department . EBL: Negligible COMPLICATION: None. PROCEDURE INDICATION: Chronic low back pain secondary to Facet arthropathy unresponsive to conservative treatment. PROCEDURE DESCRIPTION: the patient was seen and identified in the preop holding area , risks and benefits and possible complications of the procedure and alternatives were discussed with the patient, and the patient agreed to proceed with the procedure and signed the consent. IV was started and vital signs monitored during the procedure and fluoroscopy was used to maximize the benefit and accuracy of the needle placement, sedation was given to decrease patient anxiety, patient was taken to the procedure room and placed in prone position vital signs monitored. The patient was brought into the procedure room and placed in prone position. Skin was prepped with Chloraprep and draped in a sterile manner. Lidocaine 1% was used to numb the skin up at the target points that were chosen as follows: at the L5-S1 level which corresponds to the dorsal ramus of L5 the target points were at the superior medial aspect of the sacral ala on each side of the spine on the AP view of fluoroscopy, and for theL3 and L4 medial branches the target points were the connection between the transverse process and the superior articular process of L4 and L5 respectively on the oblique views of fluoroscopy. I used 22-gauge 3-1/2 inch Quincke spinal needles for this procedure and after contacting bone at the target points mentioned above I injected 1 mL of a mixture of Kenalog 40 mg +5 MLS of Ropivacaine 0.5% PF . Patient tolerated procedure well. At the end of the procedure the needles removed and a bandage applied after the skin was cleaned the cleaning solution. patient was then taken to the recovery room in stable condition and monitored in the recovery room for 20-30 minutes and discharged home in stable condition after discharge criteria met . A copy of the needle placement picture was saved to the C-arm machine.
[2022-06-15] MEDS ORDERED: IV FLUID CONTINUATION 1,000 ML IV ONE (07:26)
--- NOTE | 2022-06-15 07:36 | FL ---
Intraoperative/procedural fluoroscopic services were provided for bilateral lumbar facet block. Total fluoroscopy time is 24.8 seconds with a total of 4 submitted images to PACS. Total DAP 0.348223. Ple ase see the operative note for further details.
[2022-06-15 07:46] VITALS: BP 122/73; PULSE 63; RESP 18
== END 2022-06-15 08:00 | disposition home or self-care (01) ==
LOC: ORPAIN 06:12
PROVIDERS: ATTEND Anesthesiology
DX: M51.36 Other intervertebral disc degeneration, lumbar region (principal); M47.816 Spondylosis without myelopathy or radiculopathy, lumbar region; G89.29 Other chronic pain; E66.01 Morbid (severe) obesity due to excess calories; K21.9 Gastro-esophageal reflux disease without esophagitis; Z88.9 Allergy status to unspecified drugs, medicaments and biological substances; E78.5 Hyperlipidemia, unspecified; G47.33 Obstructive sleep apnea (adult) (pediatric); F32.A Depression, unspecified; Z79.1 Long term (current) use of non-steroidal anti-inflammatories (NSAID); Z79.899 Other long term (current) drug therapy; Z68.54 Body mass index [BMI] pediatric, 95th percentile for age to less than 120% of the 95th percentile for age
CPT/HCPCS: 64494 ×2; 64493; J2250; J3301; J2795

== ENCOUNTER → 2022-07-05 | Outpatient (CLI) | payer OTHER ==
--- NOTE | 2022-07-05 08:46 | P.PN ---
Subjective Progress Note Date: 07/05/22 This is follow up visit for this 51 years old male with a chronic history of severe low back pain, he is diagnosed with lumbar degenerative disc disease and lumbar facet arthropathy, recently we have done diagnostic medial branch block lumbar area at L4 5 and L5-S1 levels x2 , patient reported that he got 100% relief after each injection and the pain relief lasted for 1 day after each injection,, and he reported that the pain is constant increased with activity interfere with the quality of life, patient had physical therapy and multiple pain injections, and he continued to have pain and in 2014 on he had lumbar laminectomy surgery, he reported that he continued to have severe low back pain after the surgery , and he is currently on [place] 5/325 and he continued to have. He tried physical therapy and chiropractics without any benefit he tried ice and heat without any benefit, he feels occasional weakness in his lower extremity mainly on the left side, he reported that the pain is constant radiated to the posterior aspect of his lower extremity, he denies any fever or night sweats. Denies any change in the bowel movement or urination . Physical Examinations : -Constitutiona : Cooperative , not in acute distress . -HEENT : nech : supple , no Lymphadenopathy , normal thyroid size . : eyes : no ptosis , no icterus, no photophobia . - neurologic : Cranial nerve II to XII intact , no focal neurological deffecit . -psychatric : alert , oriented X 3 , appropriate affect , intact judgment and insight . -Lymphatic : no Lymphadenopathy . - musculoskeltal : Cervical Spine motor stregnth in the deltoid and biceps, normal right side , normal Left side motor stregnth biceps and the wrist extensors normal right side ,normal left side . motor stregnth in the triceps muscle . normal Right side , normal Left side deep tendon reflexes normal at the biceps , normal at Brachioradialis , normal at triceps. cervical facet loading test: Positive Bilaterally Spurling test= positive Right , positive left. Neck distraction test= positive Right , positive left. Allie sign= positive right, positive left . Lumber spine moter stegnth lower extremities ,thigh and legs 5/5 Right side , 5/5 Left side deep tendon reflexes : normal Knee Jerk , normal ankle Jerk lumber facet Loading Test =positive Right , positive Left Range of motion of the lumbar spine Flexion 30 degrees, extension 10 degrees strait leg raising test = positive at 45 degree Fabere test= positive Right , and positive LT . tenderness over the Sacroiliac joint on the Right , and Left sides Results MRI of the lumbar spine without contrast done 02/27/2022 L4 5 left-sided laminectomy multilevel lumbar bulging disc disease and multilevel lumbar facet arthropathy and multilevel lumbar degenerative disc disease Assessment and Plan Plan: Assessment and plan= chronic low back pain secondary to lumbar degenerative disc disease , lumbar spondylosis with lumbar facet arthropathy . Previous lumbar laminectomy surgery Description had excellent pain relief after each diagnostic medial branch block ( 100% ) Patient will be good candidate to have RFA medial branch block lumbar area at L4 5 and L5-S1 bilaterally . PQRS Measure Charge Sheet Mode of Arrival: Ambulatory - Pain Location Bilateral Lower Back Non-Pharmacological Interventions: Heat, Ice, Physical Therapy, Position/Reposition, Sitting Pharmacological Interventions: Medication, PRN Medication, Scheduled Medication PQRS Narrative: Smoking Status Former smoker Blood Pressure 133/89 Pain Intensity [Bilateral 7 Lower Back] Scale Used Numeric (1 - 10) Hx Alcohol Use (MH) No Home Medications: Ambulatory Orders Omeprazole [PriLOSEC] 20 mg PO DAILY 04/11/15 FLUoxetine HCL [PROzac] 80 mg PO DAILY 04/14/19 Objective - Vital Signs Vital signs: Intake & Output 07/04/22 07/05/22 07/05/22 18:59 06:59 18:59 Weight 149.685 kg
[2022-07-05 08:49] VITALS: BP 135/85; PULSE 64; RESP 18; TEMP 98.6
== END ==
LOC: PNWHC3 08:21
PROVIDERS: ATTEND Specialist
DX: M51.36 Other intervertebral disc degeneration, lumbar region (principal); M47.816 Spondylosis without myelopathy or radiculopathy, lumbar region; M96.1 Postlaminectomy syndrome, not elsewhere classified; G89.29 Other chronic pain; Z87.891 Personal history of nicotine dependence; Z88.8 Allergy status to other drugs, medicaments and biological substances
CPT/HCPCS: 99211

== ENCOUNTER 2022-08-17 06:50 | Day surgery (SDC) | payer OTHER ==
[~2022-08-17 06:50] MED LIST changes: +LIDOCAINE 1% (10MG/ML) FOR IV START INTRADERMA PRN
[2022-08-17 07:11] VITALS: TEMP 97.6
[2022-08-17] MEDS ORDERED: fentaNYL (PF) 50 MCG/ML 2 ML AMP ONE (07:37)
[2022-08-17] MEDS ORDERED: MIDAZOLAM 2 MG/2 ML VIAL ONE (07:37)
[2022-08-17] MEDS ORDERED: methylPREDNISolone ACETATE 40 MG/ML 1 ML VIAL ONE (07:37)
[2022-08-17] MEDS ORDERED: ROPIVACAINE 5 MG/ML 20 ML AMPULE ONE (07:37)
--- NOTE | 2022-08-17 08:10 | P.PCN ---
Date of Procedure: 08/17/22 Procedure(s) Performed: PREOPERATIVE DIAGNOSIS: 1-Lumbar Spondylosis with Facet Arthropathy without myelopathy. 2- Lumber degenerative disc disease. POSTOPERATIVE DIAGNOSIS: 1- Lumbar Spondylosis with Facet Arthropathy without myelopathy. 2- Lumber degenerative disc disease. PROCEDURES : Bilateral Radiofrequency thermocoagulation, L3 , L4 , and L5 medial branch, with fluoroscopic guidance (fluoroscopy images available in the radiology department) ( to denervate the facet joint at bilateral L4-5 ,and L5-S1 levels ). ANESTHESIA: Monitored anesthesia care as per anesthesia department . EBL: Minimal PROCEDURE INDICATION: The patient with low back pain secondary to lumbar facet arthropathy who had more than 50% relief of her pain with previous diagnostic lumbar medial branch block with bupivacaine. PROCEDURE DESCRIPTION / TECHNIQUE: The patient was seen and identified in the preoperative area. Risks, benefits, complications, including but not limited to risk of infection ,bleeding , allergic reactions to the medications and no complete pain releife , and alternatives were discussed with the patient, the patient agreed to proceed with the procedure and signed the consent. IV was started. Vital signs remained stable throughout the procedure. Patient was taken to the OR and time out was completed. The patient was placed in the prone position on the procedure table. The lumber area was prepped and draped in the usual sterile fashion. . Vital signs were closely monitored during the procedure .IV sedation was used during the procedure to decrease patients anxiety. Using AP and then oblique fluoroscopy, the ``eye of the Boone dog corresponding to the connection between the superior and transverse articular processes of right L3, L4, and L5 were identified, marked, and localized with 1% lidocaine. Subsequently, a 18 -oe radiofrequency cannula with a 10- mm active tip was advanced guided by fluoroscopy to each of the``eyes of the [place]one dog at right L3, L4, and L5. Each site then underwent sensory testing at 50 Hz and 0 to 1 volt and motor testing at 2.5 Hz and 0 to 3 volt with local stimulation, but no radicular symptoms down the legs. Thereafter each sites underwent radiofrequency thermocoagulation at 80 degrees celsius for 90 seconds after injecting 0.5 ml of PF Ropivacaine 1ml, then after the thermocoagulation done , 1 ml of the block solution containing Depo-Medrol 20 mg and 3 ml of Ropivacaine 0.5% was injected at the right L3 , L4 , and L5 , levels after negative aspiration of CSF and blood and with no paresthesias. Cannulas were retracted while injecting lidocaine 1% until the needle is out. The same procedure was repeated at the level of Left L3, L4, and L5 levels. At the end of the procedure, the skin was cleansed and bandages were applied. COMPLICATIONS: No acute complications. DISPOSITION / PLANS: The patient was placed in a supine position and transferred to the recovery area in a stable condition for observation and was discharged from the recovery room after meeting discharge criteria. Home discharge instructions given to the patient by the staff. The patient was reexamined prior to discharge. The patient will schedule a follow up in the clinic in 2-4 weeks.
[2022-08-17] MEDS ORDERED: LACTATED RINGERS 1,000 ML IV ONE (08:13)
[2022-08-17 08:30] VITALS: BP 119/69; PULSE 63; RESP 18
--- NOTE | 2022-08-17 08:44 | FL ---
EXAMINATION TYPE: FL guided pain mgmt statistic DATE OF EXAM: 08/17/2022 HISTORY: Fluoroscopy time Total dose area product (DAP) in uGy*m?, mGy*cm? (or similar): 0.33653 IMPRESSION: 1. Fluoroscopy time.
== END 2022-08-17 08:48 | disposition home or self-care (01) ==
LOC: ORPAIN 06:50
PROVIDERS: ATTEND Specialist
DX: M51.36 Other intervertebral disc degeneration, lumbar region (principal); M47.816 Spondylosis without myelopathy or radiculopathy, lumbar region; E78.5 Hyperlipidemia, unspecified; G47.33 Obstructive sleep apnea (adult) (pediatric); F12.90 Cannabis use, unspecified, uncomplicated; K21.9 Gastro-esophageal reflux disease without esophagitis; Z88.5 Allergy status to narcotic agent; Z79.899 Other long term (current) drug therapy
CPT/HCPCS: 64635; 64636 ×2; J2250; J1030; J3010; J2795

== ENCOUNTER → 2023-04-04 | Outpatient (CLI) | payer OTHER ==
[2023-04-04 18:34] LABS: Basophils # (A) 0.11 X 10*3/uL (0.00-0.10); Basophils % (A) 1.3 %; Eosinophils % (A) 2.3 %; HCT 45.5 % (39.6-50.0); Lymphocytes % (A) 31.8 %; MCH 26.2 pg (27.0-32.0); MCHC 30.8 g/dL (32.0-37.0); Mean Platelet Volume 10.1 FL (9.5-12.2); Monocytes # (A) 0.58 X 10*3/uL (0.20-1.00); Monocytes % (A) 6.6 %; NRBC Per 100 WBC 0 X 10*3/uL (0.00-0.01); Neutrophils # (A) 5.08 X 10*3/uL (1.80-7.70); Neutrophils % (A) 57.7 %; Platelet Count 255 X 10*3/uL (140-440); RBC 5.35 X 10*6/uL (4.40-5.60); RDW 13.4 % (11.5-14.5)
[2023-04-04 18:38] LABS: BUN/Creat Ratio 15.22 Ratio (12.00-20.00); Blood Urea Nitrogen 13.7 mg/dL (9.0-27.0); Calcium 8.8 mg/dL (8.7-10.3); Carbon Dioxide 27.2 mmol/L (21.6-31.8); Chloride 105 mmol/L (96-109); Glucose 122 mg/dL (70-110); Potassium 4.2 mmol/L (3.5-5.5); Sodium 142 mmol/L (135-145)
== END | disposition home or self-care (01) ==
LOC: LABWHC1 14:38
PROVIDERS: ATTEND Orthopaedic Surgery
DX: Z01.812 Encounter for preprocedural laboratory examination (principal); M75.42 Impingement syndrome of left shoulder; I45.4 Nonspecific intraventricular block; R94.31 Abnormal electrocardiogram [ECG] [EKG]
CPT/HCPCS: 36415; 80048; 85025; 93005

== ENCOUNTER 2023-04-12 05:39 | Day surgery (SDC) | payer OTHER ==
--- NOTE | 2023-04-11 10:59 | P.HPOR ---
History of Present Illness H&P Date: 04/11/23 Chief Complaint: Left shoulder pain The patient is a 52-year-old [id number] gentleman presents with left shoulder pain for the past 10 months increasing over the past 4 months. He's having pain with overhead use and at night. He notes stiffness as well. He tried medications in addition to home exercises and a previous injection without much relief. He notes daily symptoms. Review of Systems Negative except as in HPI Past Medical History Past Medical History: GERD/Reflux, Hyperlipidemia, Sleep Apnea/CPAP/BIPAP Additional Past Medical History / Comment(s): PADMA with Bipap use History of Any Multi-Drug Resistant Organisms: None Reported Past Surgical History: Appendectomy, Back Surgery, Bariatric Surgery, Orthopedic Surgery Additional Past Surgical History / Comment(s): LUMBAR DISCETOMY, ORIF LEFT Ankle, HARDWARE REMOVED, BILATERAL ROTATOR CUFF REPAIR, RIGHT clavicle REPAIR, throat surgery - UVPPP, COLONOSCOPY, Sleeve Gastrectomy. Past Anesthesia/Blood Transfusion Reactions: No Reported Reaction Smoking Status: Former smoker - Past Family History Mother Family Medical History: No Reported History Father Family Medical History: No Reported History Additional Family Medical History / Comment(s): at 63 yrs, lung and heart disease. Medications and Allergies Home Medications Medication Instructions Recorded Confirmed Type Omeprazole [PriLOSEC] 20 mg PO QAM 04/11/15 04/08/23 History FLUoxetine HCL [PROzac] 80 mg PO QAM 04/14/19 04/08/23 History Ergocalciferol [Vitamin D2 (1250 1,250 mcg PO MO 04/25/22 04/08/23 History Mcg = 19681 Iu)] Allergies Allergy/AdvReac Type Severity Reaction Status Date / Time meperidine HCl [From Demerol] Allergy Rash/Hives Verified 04/08/23 15:13 Physical Examination - Shoulder left Tenderness with palpation: anterior, ACJ Pain: with abduction, with forward flexion ROM: forward flexion: 140 degrees ROM: internal rotation: lower lumbar ROM: external rotation: 60 degrees Crepitus with motion: Yes Strength: external rotation: 5/5 Tests: internal impingement tests: positive, external impingment tests: positive Results The shunt is a well-developed well-nourished male approximately 6 foot 1, 340 pounds of endomorphic habitus. HEENT exam is nonfocal, neck is supple. He is tender about anterior subacromial space of the left shoulder. He has moderate crepitus. Whitfield, Neer sign, and speed test are positive. He does have pain with cross body adduction. His distal neurovascular appears intact in the left upper extremity. - Diagnostic results Shoulder MRI: image reviewed (RI report left shoulder shows evidence of a partial-thickness supraspinatus tear along with acromioclavicular joint arthritis and a superior labral tear.) Assessment and Plan Assessment: Left shoulder impingement/acromioclavicular joint arthritis/superior labral tear/partial thickness rotator cuff tear Plan: I talked to the patient at length regarding his condition along with treatment options. At this point he is quite symptomatic despite conservative measures with medications, therapy, and injections. After a thorough discussion he opts to proceed with surgery. We will plan to proceed with left shoulder arthroscopy with probable revision subacromial decompression, possible distal clavicular resection, possible biceps tenotomy/tenodesis in addition to possible rotator cuff debridement versus repair. Risks and benefits were discussed at length limbs turns. We will likely perform that as an outpatient procedure.
[~2023-04-12 05:39] MED LIST changes: -LACTATED RINGERS 1,000 ML IV SCH; -LIDOCAINE 1% (10MG/ML) FOR IV START INTRADERMA PRN; +ceFAZolin 3 GM in SODIUM CHLORIDE 0.9% 100 ML IVPB PRN
[2023-04-12] MEDS ORDERED: ONDANSETRON 4 MG/2 ML VIAL IVP ONE (06:08)
[2023-04-12] MEDS ORDERED: LACTATED RINGERS 1,000 ML IV SCH (06:08)
[2023-04-12] MEDS ORDERED: DEXAMETHASONE SOD PHOSPHATE 4 MG/ML 1 ML VIAL IV ONE (06:08)
[2023-04-12] MEDS ORDERED: SCOPOLAMINE 1 MG/72 HR PATCH TRANSDERM ONE (06:08)
[2023-04-12] MEDS ORDERED: MIDAZOLAM 2 MG/2 ML VIAL IVP ONE (06:51)
[2023-04-12 06:59] VITALS: RESP 16
[2023-04-12] MEDS ORDERED: MIDAZOLAM 2 MG/2 ML VIAL IV PRN (07:00)
[2023-04-12] MEDS ORDERED: HYDROmorphone 0.5 MG/0.5 ML SYRINGE IVP PRN (07:00)
[2023-04-12] MEDS ORDERED: NEOSTIGMINE 1 MG/ML 10 ML VIAL ONE (07:33)
[2023-04-12] MEDS ORDERED: DEXAMETHASONE SOD PHOSPHATE 4 MG/ML 1 ML VIAL ONE (07:33)
[2023-04-12] MEDS ORDERED: ePHEDrine 50 MG/ML 1 ML VIAL ONE (07:33)
[2023-04-12] MEDS ORDERED: SUCCINYLCHOLINE CHLORIDE 200 MG/10 ML VIAL IV ONE (07:33)
[2023-04-12] MEDS ORDERED: LIDOCAINE 1% INJ 10MG/ML (20 ML MDV) ONE (07:33)
[2023-04-12] MEDS ORDERED: PHENYLEPHRINE-0.9% NACL SYG 1,000 MCG/10 ML SYRINGE ONE (07:33)
[2023-04-12] MEDS ORDERED: HYDROmorphone (PF) 1 MG/ML ONE (07:33)
[2023-04-12] MEDS ORDERED: GLYCOPYRROLATE 0.2 MG/ML 2 ML VIAL ONE (07:33)
[2023-04-12] MEDS ORDERED: ROPIVACAINE 5 MG/ML 30 ML VIAL ONE (07:33)
[2023-04-12] MEDS ORDERED: PROPOFOL 10 MG/ML 20 ML VIAL IV ONE (07:33)
[2023-04-12] MEDS ORDERED: fentaNYL (PF) 50 MCG/ML 2 ML AMP ONE (07:33)
[2023-04-12] MEDS ORDERED: MIDAZOLAM 2 MG/2 ML VIAL ONE (07:33)
[2023-04-12] MEDS ORDERED: ROCURONIUM 10 MG/ML (5 ML VIAL) IV ONE (07:33)
--- NOTE | 2023-04-12 08:06 | P.ANPRN ---
Procedure Note - Anesthesia - Nerve Block Performed Left Interscalene Single Time Out Performed: Yes (0650) Date of Procedure: 04/12/23 Procedure Start Time: 06:52 Procedure Stop Time: 06:57 Location of Patient: PreOp Indication: Acute Post-Operative Pain, Requested by Surgeon Sedation Type: Sedate with meaningful contact maintained Preparation: Sterile Prep, Sterile Dressing Position: Sitting Catheter: None Needle Types: Pajunk Needle Gauge: Other (see comment) (22G ) Ultrasound used to visualize needle placement: Yes Ultrasound used to observe medication spread: Yes Injectate: 0.5% Ropivacaine (see comment for volume) (20 ml mixed with 10 mg of Dexamethasone) Blood Aspirated: No Pain Paresthesia on Injection Noted: No Resistance on Injection: Normal Image Stored and Saved: Yes Events: Uneventful and Well Tolerated
[2023-04-12] MEDS ORDERED: EPINEPHrine (PF) 1 ML in SODIUM CHLORIDE 0.9% IRRIGATIO 3,000 ML IRRIGATION ONE ×8 (09:00)
[2023-04-12] MEDS ORDERED: LACTATED RINGERS 1,000 ML IV ONE (09:40)
--- NOTE | 2023-04-12 09:44 | P.OP ---
Date of Procedure: 04/12/23 Preoperative Diagnosis: Left shoulder impingement/superior labral tear Postoperative Diagnosis: Left 3 cm rotator cuff tear/high-grade partial-thickness tear intra-articular portion long head of biceps/acromioclavicular joint arthritis Procedure(s) Performed: Left shoulder arthroscopic subacromial decompression/distal clavicular resection/biceps tenotomy/rotator cuff repair Implants: Arthrex 4.75 mm swivel lock anchor 4 Anesthesia: RADHA, regional Surgeon: Ajith Scott Milieu Coordinator #1: Dino Tinajero Estimated Blood Loss (ml): 10 Pathology: none sent Condition: stable Disposition: PACU Indications for Procedure: The patient's a 52-year-old male presents with progressive left shoulder pain despite conservative measures. A discussion of the risks and benefits of operative intervention versus continued conservative measures was made with patient. He opted to proceed with surgery. Operative risks to include infection, neurovascular injury, development of blood clots, possible tendon rerupture, possible postoperative stiffness, possible need for subsequent procedures was discussed. Informed consent was obtained. Operative Findings: As below Description of Procedure: The patient was brought to the operating room, and after induction of general anesthesia was placed in a beachchair position. A preoperative interscalene block was placed for postoperative analgesia. I examined the left shoulder. There was no gross block to passive motion or gross glenohumeral instability. The left upper extremity was prepped and draped in normal fashion. The bony outlines the acromion, distal clavicle, and coracoid process were outlined with a skin marker. The glenohumeral joint was inflated with 50 mL of saline utilizing a spinal needle from posterior approach. A posterior portal was made through a 5 mm skin incision 1 cm medial and inferior to the posterior lateral border time. A blunt trocar was used to easily into the joint. Diagnostic arthroscopy was performed. An anterior portal was made just lateral to the coracoid process entering the joint above the subscapularis tendon. The subscapularis tendon appeared to be intact. Anterior labrum was intact. The inferior recess was inspected. The posterior labrum was intact. There was a high-grade partial-thickness tear of the long head of the biceps involving interarticular portion. It was elected to proceed with release at this point. This was released from the superior labrum with electrocautery and was allowed to retract to the bicipital groove. On inspection the rotator cuff, a full-thickness tear involving the supraspinatus and a portion infraspinatus tendons without significant retraction was noted. The arthroscope was then placed into the subacromial space. A lateral portal was made 2 centimeters inferior to the anterior lateral border of the acromion. The rotator cuff was then mobilized with a traction suture. This was then easily brought back to the greater tuberosity. The soft tissue on the undersurface of the acromion was debrided with a motorized shaver and electrocautery clearly defining the anterior medial and lateral borders as well as the distal clavicle. An anterior inferior acromioplasty was performed with a motorized ang starting anterolateral, then extending this posteriorly, then extending this medially. I converted to a flat acromion and this was verified in the posterior and lateral viewing portals. Acromioclavicular joint arthritis was noted with subacromial impingement. The distal 4 mm of clavicle was resected with a motorized bur. The greater tuberosity was lightly decorticating with a shaver down to a bleeding bony surface. A posterior lateral viewing portal was then made just off the lateral edge of the acromion. An accessory superior lateral portal was made just off the lateral edge of the acromion for anchor placement. 2 anchors were then placed just off the articular surface with the appropriate starting awl. 4.75 mm anchors preloaded with #2 fiber tape were placed. Good purchase was obtained. These fiber tapes were then passed the rotator cuff with a scorpion suture passer. A lateral row was created crisscrossing these tapes. 4.75 mm swivel lock anchors x2 were placed laterally. Good purchase was obtained. Final arthroscopic view showed adequate compression at the footprint. The arthroscope was then removed. The portals were closed with simple 3-0 nylon sutures. A sterile dressing was applied in addition to an abductor brace. The patient was then awoken from general anesthesia and transferred to recovery room in good condition. Blood loss was estimated at 10 mL. No complications were incurred. Sponge and needle counts were correct in the case. Dino REY assisted and the major components of the case to include arm positioning, anchor placement, and rotator cuff repair.
[2023-04-12 09:51] VITALS: TEMP 96.8
[2023-04-12 11:04] VITALS: BP 137/76; PULSE 69
== END 2023-04-12 11:18 | disposition home or self-care (01) ==
LOC: OR 05:39
PROVIDERS: ATTEND Orthopaedic Surgery
DX: M75.122 Complete rotator cuff tear or rupture of left shoulder, not specified as traumatic (principal); S46.112A Strain of muscle, fascia and tendon of long head of biceps, left arm, initial encounter; M19.012 Primary osteoarthritis, left shoulder; G89.18 Other acute postprocedural pain; E78.5 Hyperlipidemia, unspecified; K21.9 Gastro-esophageal reflux disease without esophagitis; G47.33 Obstructive sleep apnea (adult) (pediatric); F32.A Depression, unspecified; Z87.891 Personal history of nicotine dependence; Z88.5 Allergy status to narcotic agent; Z79.899 Other long term (current) drug therapy; X58.XXXA Exposure to other specified factors, initial encounter
CPT/HCPCS: 64415; 29824; 29826; 29827; 29828; C1713 ×3; C1894; J2250; J0330; J1100; J2710; J0690; J2405; J0171; J2001; J3010; J1170; J2795; J2704; J2371

== ENCOUNTER 2024-04-02 15:31 | Observation (INO) | payer OTHER ==
--- NOTE | 2024-04-02 16:00 | ED ---
General Adult HPI - General Source: patient, RN notes reviewed Mode of arrival: ambulatory Limitations: no limitations <Batsheva Stephens - Last Filed: 04/02/24 15:58> <Dimas Malone - Last Filed: 04/02/24 17:40> - General Chief complaint: Arrhythmia/Palpitations Stated complaint: afib Time Seen by Provider: 04/02/24 15:48 - History of Present Illness Initial comments: Quick [id number] male presents emergency department for worsening dyspnea rest and on exertion over the past few weeks. Patient was evaluated prior to [facility] where he was noted to be in atrial fibrillation. He is denying chest pain, heart palpitations. Denies current blood thinner use or history of A-fib. (Batsheva Stephens) This is a 53-year-old male who states he has been short of breath lately especially with exertion. Patient states he went to see his primary medical care doctor and they told him he was in atrial fibrillation and he needed to go to the hospital and be admitted. Patient states he has had no chest pain he does not feel the palpitations but he definitely feels short of breath when he walks patient denies any fever chills or cough or Patient denies any history of similar. Patient denies any thyroid issues. Patient has any drug use. Patient denies swelling in the legs or calf tenderness (Dimas Malone) - Related Data Home Medications Medication Instructions Recorded Confirmed Omeprazole [PriLOSEC] 20 mg PO QAM 04/11/15 04/12/23 FLUoxetine HCL [PROzac] 80 mg PO QAM 04/14/19 04/12/23 Ergocalciferol [Vitamin D2 (1250 1,250 mcg PO MO 04/25/22 04/12/23 Mcg = 69127 Iu)] Previous Rx's Medication Instructions Recorded HYDROcodone/APAP 7.5-325MG [[place] 1 tab PO Q6HR PRN #28 tab 04/12/23 7.5-325] Allergies Allergy/AdvReac Type Severity Reaction Status Date / Time meperidine HCl [From Demerol] Allergy Rash/Hives Verified 04/02/24 15:48 Review of Systems ROS Other: All systems not noted in ROS Statement are negative. <Batsheva Stephens - Last Filed: 04/02/24 15:58> ROS Other: All systems not noted in ROS Statement are negative. <Dimas Malone - Last Filed: 04/02/24 17:40> ROS Statement: Those systems with pertinent positive or pertinent negative responses have been documented in the HPI. Past Medical History Past Medical History: GERD/Reflux, Hyperlipidemia, Sleep Apnea/CPAP/BIPAP Additional Past Medical History / Comment(s): Hx Acid Reflux, no current problems. USES CPAP. History of Any Multi-Drug Resistant Organisms: None Reported Past Surgical History: Appendectomy, Back Surgery, Bariatric Surgery, Orthopedic Surgery Additional Past Surgical History / Comment(s): LUMBAR DISCETOMY, ORIF LEFT Ankle, HARDWARE REMOVED, BILATERAL ROTATOR CUFF REPAIR, RIGHT clavicle REPAIR, throat surgery - UPPP, COLONOSCOPY, Sleeve Gastrectomy. Past Anesthesia/Blood Transfusion Reactions: No Reported Reaction Past Psychological History: Depression Smoking Status: Former smoker Past Alcohol Use History: Occasional Past Drug Use History: None Reported - Past Family History Mother Family Medical History: No Reported History Father Family Medical History: No Reported History <Batsheva Stephens - Last Filed: 04/02/24 15:58> General Exam Limitations: no limitations <Batsheva Stephens - Last Filed: 04/02/24 15:58> <Dimas Malone - Last Filed: 04/02/24 17:40> - General Exam Comments Initial Comments: Visual Physical Exam Vital signs reviewed General: Well-appearing, nontoxic, no acute distress. Head: Normocephalic, atraumatic Eyes: PERRLA, EOMI ENT: Airway patent Chest: Nonlabored breathing Skin: No visual rash, normal skin tone Neuro: Alert and oriented 3 Musculoskeletal: No gross abnormalities (Stieler,Batsheva) GENERAL: Patient is well-developed and well-nourished. Patient is nontoxic and well- hydrated and is in no acute distress. ENT: Neck is soft and supple. No significant lymphadenopathy is noted. Oropharynx is clear. Moist mucous membranes. Neck has full range of motion without eliciting any pain. EYES: The sclera were anicteric and conjunctiva were pink and moist. Extraocular movements were intact and pupils were equal round and reactive to light. Eyelids were unremarkable. PULMONARY: Unlabored respirations. Good breath sounds bilaterally. No audible rales rhonchi or wheezing was noted. CARDIOVASCULAR: Patient has an irregular heartbeat ABDOMEN: Soft and nontender with normal bowel sounds. No palpable organomegaly was noted. There is no palpable pulsatile mass. SKIN: Skin is clear with no lesions or rashes and otherwise unremarkable. NEUROLOGIC: Patient is alert and oriented x3. Cranial nerves II through XII are grossly intact. Motor and sensory are also intact. Normal speech, volume and content. Symmetrical smile. MUSCULOSKELETAL: Normal extremities with adequate strength and full range of motion. No lower extremity swelling or edema. No calf tenderness. LYMPHATICS: No significant lymphadenopathy is noted PSYCHIATRIC: Normal psychiatric evaluation. (Dimas Malone) Course Vital Signs 04/02/24 04/02/24 04/02/24 15:49 17:21 17:25 Temperature 98.2 F Pulse Rate 69 97 Pulse Rate [ 110 H Hospital Account Manager ] Respiratory 16 20 Rate Blood Pressure 137/95 101/59 O2 Sat by Pulse 97 96 Oximetry 04/02/24 17:26 Temperature Pulse Rate Pulse Rate [ Hospital Account Manager ] Respiratory 16 Rate Blood Pressure O2 Sat by Pulse Oximetry Medical Decision Making <Batsheva Stephens - Last Filed: 04/02/24 15:58> - Lab Data Result diagrams: 04/02/24 16:03 04/02/24 16:03 <Dimas Malone - Last Filed: 04/02/24 17:40> - Medical Decision Making I completed the quick note portion of this chart signed Batsheva Stephens PA-C (Batsheva Stephens) EKG is interpreted by myself. EKG shows atrial fibrillation at 96 bpm QRS is 87 QT interval 354 QTc is 408. Patient's EKG shows no ST segment ovation Was pt. sent in by a medical professional or institution (CANDIDO Whitman, TUNNEL HEADING INSPECTOR, urgent care, hospital, or snf...) When possible be specific @ -No Did you speak to anyone other than the patient for history (EMS, parent, family, police, friend...)? What history was obtained from this source @ -No Did you review nursing and triage notes (agree or disagree)? Why? @ -I reviewed and agree with nursing and triage notes Were old charts reviewed (outside hosp., previous admission, EMS record, old EKG, old radiological studies, urgent care reports/EKG's, snf records)? Report findings @ -No old charts were reviewed Differential Diagnosis? @ -Differential Dyspnea: Coronary syndrome, arrhythmia, tamponade, asthma, COPD, pulmonary embolism, pneumonia, pneumothorax, pulmonary effusion, anaphylaxis, diabetic ketoacidosis, flailed chest, pulmonary contusion, diaphragmatic rupture, anemia, neuromuscular, this is not meant to be an all-inclusive list. EKG interpreted by me (3pts min.). @ -As above X-rays interpreted by me (1pt min.). @ -Chest x-ray shows no acute normality CT interpreted by me (1pt min.). @ -None done U/S interpreted by me (1pt. min.). @ -None done What testing was considered but not performed or refused? (CT, X-rays, U/S, labs)? Why? @ -None What meds were considered but not given or refused? Why? @ -None Did you discuss the management of the patient with other professionals (professionals i.e. , PA, TUNNEL HEADING INSPECTOR, lab, RT, psych nurse, social work instructor, flat surfacer jewel, teacher, military source operations officer, correctional case records supervisor)? Give summary @ -Spoke with Dr. Barone he agreed to admit the patient admitted the patient and wrote admitting orders Was smoking cessation discussed for >3mins.? @ -No Was critical care preformed (if so, how long)? @ -35 minutes Were there social determinants of health that impacted care today? How? (Home lessness, low income, unemployed, alcoholism, drug addiction, transportation, low edu. Level, literacy, decrease access to med. care, long-term, rehab)? @ -No Was there de-escalation of care discussed even if they declined (Discuss DNR or withdrawal of care, Hospice)? DNR status @ -No What co-morbidities impacted this encounter? (DM, HTN, Smoking, COPD, CAD, Cancer, CVA, ARF, Chemo, Hep., AIDS, mental health diagnosis, sleep apnea, morbid obesity)? @ -None Was patient admitted / discharged? Hospital course, mention meds given and route, prescriptions, significant lab abnormalities, going to OR and other pertinent info. @ -Patient was started on heparin secondary to the A-fib. Patient's heart rate was 110 while resting he states he is not short of breath in bed but he gets up and walks around he says he becomes very short of breath. Patient will be admitted to Dr. Barone with cardiology consult Undiagnosed new problem with uncertain prognosis? @ -No Drug Therapy requiring intensive monitoring for toxicity (Heparin, Nitro, Insulin, Cardizem)? @ -No Were any procedures done? @ -No Diagnosis/symptom? @ -New onset A-fib Acute, or Chronic, or Acute on Chronic? @ -Acute Uncomplicated (without systemic symptoms) or Complicated (systemic symptoms)? @ -Comp Side effects of treatment? @ -No Exacerbation, Progression, or Severe Exacerbation? @ -No Poses a threat to life or bodily function? How? (Chest pain, [place], ME, pneumonia, PE, COPD, DKA, ARF, appy, cholecystitis, CVA, Diverticulitis, Homicidal, Suicidal, threat to staff... and all critical care pts) @ -Yes this can lead to poor perfusion and endorgan dysfunction (Dimas Malone) - Lab Data Lab Results 04/02/24 04/02/24 04/02/24 Range/Units 16:03 16:03 16:03 WBC 11.0 H (3.8-10.6) k/uL RBC 5.46 (4.30-5.90) m/uL Hgb 14.2 (13.0-17.5) gm/dL Hct 45.0 (39.0-53.0) % MCV 82.5 (80.0-100.0) fL MCH 26.1 (25.0-35.0) pg MCHC 31.6 (31.0-37.0) g/dL RDW 13.1 (11.5-15.5) % Plt Count 242 (150-450) k/uL MPV 7.7 Neutrophils % 65 % Lymphocytes % 26 % Monocytes % 4 % Eosinophils % 2 % Basophils % 1 % Neutrophils # 7.2 (1.3-7.7) k/uL Lymphocytes # 2.9 (1.0-4.8) k/uL Monocytes # 0.5 (0-1.0) k/uL Eosinophils # 0.2 (0-0.7) k/uL Basophils # 0.1 (0-0.2) k/uL PT 10.4 (10.0-12.5) sec INR 0.9 (<1.2) APTT 24.3 (22.0-30.0) sec D-Dimer 0.42 (<0.60) mg/L FEU Sodium 139 (137-145) mmol/L Potassium 3.9 (3.5-5.1) mmol/L Chloride 105 (98-107) mmol/L Carbon Dioxide 24 (22-30) mmol/L Anion Gap 10 mmol/L BUN 19 (9-20) mg/dL Creatinine 0.85 (0.66-1.25) mg/dL Est GFR (CKD-EPI)AfAm >90 (>60 ml/min/1.73 sqM) Est GFR (CKD-EPI)NonAf >90 (>60 ml/min/1.73 sqM) Glucose 103 H (74-99) mg/dL Calcium 9.1 (8.4-10.2) mg/dL Magnesium 2.1 (1.6-2.3) mg/dL Total Bilirubin 0.4 (0.2-1.3) mg/dL AST 27 (17-59) U/L ALT 25 (4-49) U/L Alkaline Phosphatase 83 (38-126) U/L Troponin I (0.000-0.034) ng/mL Total Protein 7.2 (6.3-8.2) g/dL Albumin 4.4 (3.5-5.0) g/dL TSH 0.793 (0.465-4.680) mIU/L 04/02/24 Range/Units 16:03 WBC (3.8-10.6) k/uL RBC (4.30-5.90) m/uL Hgb (13.0-17.5) gm/dL Hct (39.0-53.0) % MCV (80.0-100.0) fL MCH (25.0-35.0) pg MCHC (31.0-37.0) g/dL RDW (11.5-15.5) % Plt Count (150-450) k/uL MPV Neutrophils % % Lymphocytes % % Monocytes % % Eosinophils % % Basophils % % Neutrophils # (1.3-7.7) k/uL Lymphocytes # (1.0-4.8) k/uL Monocytes # (0-1.0) k/uL Eosinophils # (0-0.7) k/uL Basophils # (0-0.2) k/uL PT (10.0-12.5) sec INR (<1.2) APTT (22.0-30.0) sec D-Dimer (<0.60) mg/L FEU Sodium (137-145) mmol/L Potassium (3.5-5.1) mmol/L Chloride (98-107) mmol/L Carbon Dioxide (22-30) mmol/L Anion Gap mmol/L BUN (9-20) mg/dL Creatinine (0.66-1.25) mg/dL Est GFR (CKD-EPI)AfAm (>60 ml/min/1.73 sqM) Est GFR (CKD-EPI)NonAf (>60 ml/min/1.73 sqM) Glucose (74-99) mg/dL Calcium (8.4-10.2) mg/dL Magnesium (1.6-2.3) mg/dL Total Bilirubin (0.2-1.3) mg/dL AST (17-59) U/L ALT (4-49) U/L Alkaline Phosphatase (38-126) U/L Troponin I 0.013 (0.000-0.034) ng/mL Total Protein (6.3-8.2) g/dL Albumin (3.5-5.0) g/dL TSH (0.465-4.680) mIU/L Critical Care Time Critical Care Time: Yes Total Critical Care Time: 35 <Dimas Malone - Last Filed: 04/02/24 17:40> Disposition <Batsheva Stephens - Last Filed: 04/02/24 15:58> Time of Disposition: 17:40 <Dimas Malone - Last Filed: 04/02/24 17:40> Clinical Impression: New onset a-fib Disposition: ADMITTED IP TO THIS HOSP Referrals: [facility],Clinic [Primary Care Provider] - 1-2 days
[2024-04-02 16:19] LABS: Basophils # (A) 0.1 k/uL (0-0.2); Basophils % (A) 1 %; Eosinophils # (A) 0.2 k/uL (0-0.7); Eosinophils % (A) 2 %; HGB 14.2 gm/dL (13.0-17.5); Lymphocytes # (A) 2.9 k/uL (1.0-4.8); Lymphocytes % (A) 26 %; MCH 26.1 pg (25.0-35.0); MCHC 31.6 g/dL (31.0-37.0); MCV 82.5 fL (80.0-100.0); Mean Platelet Volume 7.7; Monocytes # (A) 0.5 k/uL (0-1.0); Monocytes % (A) 4 %; Neutrophils # (A) 7.2 k/uL (1.3-7.7); Neutrophils % (A) 65 %; Platelet Count 242 k/uL (150-450); RBC 5.46 m/uL (4.30-5.90); RDW 13.1 % (11.5-15.5)
[2024-04-02 16:30] LABS: ALT 25 U/L (4-49); AST 27 U/L (17-59); African American GFR (CKD) >90 (>60 ml/min/1.73 sqM); Albumin 4.4 g/dL (3.5-5.0); Alkaline Phosphatase 83 U/L (38-126); Anion Gap 10 mmol/L; Blood Urea Nitrogen 19 mg/dL (9-20); Calcium 9.1 mg/dL (8.4-10.2); Carbon Dioxide 24 mmol/L (22-30); Chloride 105 mmol/L (98-107); Glucose 103 mg/dL (74-99); Magnesium 2.1 mg/dL (1.6-2.3); Non-African American GFR(CKD) >90 (>60 ml/min/1.73 sqM); Potassium 3.9 mmol/L (3.5-5.1); Sodium 139 mmol/L (137-145); Total Bilirubin 0.4 mg/dL (0.2-1.3); Total Protein 7.2 g/dL (6.3-8.2)
[2024-04-02 16:34] LABS: INR 0.9 (<1.2); Partial Thromboplastin Time 24.3 sec (22.0-30.0); Prothrombin Time 10.4 sec (10.0-12.5)
--- NOTE | 2024-04-02 16:45 | XR ---
EXAMINATION TYPE: XR chest 2V DATE OF EXAM: 04/02/2024 4:34 PM COMPARISON: None CLINICAL INDICATION: Male, 53 years old with history of dysrhythmia; [facility] TECHNIQUE: XR chest 2V Frontal and lateral views of the chest. FINDINGS: Lungs/Pleura: There is no evidence of pleural effusion, focal consolidation, or pneumothorax. Pulmonary vascularity: Unremarkable. Heart/mediastinum: Cardiomediastinal silhouette is unremarkable. Musculoskeletal: No acute osseous pathology. IMPRESSION: No acute cardiopulmonary disease/process. [facility], , 04/02/2024 4:43 PM
[2024-04-02] MEDS: HEPARIN SOD,PORK IN 0.45% NACL 25,000 UNIT in 0.45% NACL 1 250ML.BAG IV SCH (18:01)
[2024-04-02] MEDS: HEPARIN SODIUM 1,000 UN/ML (10ML VL) IV ONE (18:02)
--- NOTE | 2024-04-02 20:22 | P.HPIM ---
History of Present Illness H&P Date: 04/02/24 Chief Complaint: Shortness of breath Patient is a 53-year-old male with PMHx of sleep apnea (on Bipap at home), hyperlipidemia, GERD, and depression who presents to the ED with chief complaint of SOB for a few weeks. 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 Patient states his shortness of breath is worse with exertion. He states that he uses Bipap nightly and his AHI ranges between 3-5. He follows up regularly with multiple providers at [facility] including his PCP Rowena Childress every 6 months for bloodwork. He states he drinks 2 yetis of coffee approximately 40oz total daily. Patient also states that he was taking duloxetine 40 mg for his depression for about 2 months but then began having trouble sleeping so 1 month ago the dose was decreased to 20 mg and then patient self discontinued the duloxetine and started taking fluoxetine 80 mg 1 week ago which she had taken in the past. He denies any history of A-fib or palpitations. He denies chest pain, fevers, headaches, nausea, vomiting, diarrhea. He denies any history of heart or thyroid disease, strokes, leg swelling, calf tenderness, and blood clots. He also denies past use of blood thinners or aspirin. ED documentation reviewed. Vitals on admission: Temperature 98.2 temperature 98.2, heart rate 110, blood pressure 137/95, 97% O2 saturation on room air EKG independently interpreted as atrial fibrillation at 96 bpm with no acute ST changes, poor R-wave progression, with QTc 408 ms CXR shows no acute cardiopulmonary disease or process Labs on admission show WBCs 11. Hemoglobin 14.2. Platelets 242. PT 10.4. INR 0.9. PTT 24.3. D-dimer 0.42. Sodium 139, potassium 3.9, chloride 105, bicarb 24, BUN 19, creatinine 0.85, glucose 103. Calcium 9.1. Magnesium 2.1. TSH 0.793. Review of systems: Pertinent positives and negatives as discussed in HPI, a complete review of systems was performed and all other systems are negative. PMH: Sleep apnea, hyperlipidemia, GERD, depression FHx: mom has Afib with Watchmen and planning to get ablation Allergies: Demerol PCP: Rowena Childress from [facility] Social history: Tobacco: Former quit in 2009, pack a day Alcohol: couple drinks a week Recreational drugs: None Travel: Was in [place] Sick contacts: no sick contact Physical examination: Vital signs reviewed General: nontoxic, no distress, appears at stated age, morbidly obese Derm: warm, dry, intact Head: atraumatic, normocephalic, symmetric Eyes: anicteric sclera Mouth: no lip lesion, mucus membranes moist Cardiovascular: Irregularly irregular, variable tachycardia, no murmur, rubs, or gallpos Lungs: CTA bilateral, no rhonchi, no rales, no accessory muscle use Abdominal: soft, non-tender to palpation, nondistended Extremities: No cyanosis, clubbing, or pedal edema. Neuro: Alert, Oriented to person, time and place, Gross neurological examination did not reveal any focal deficits. Cranial nerves II to XII grossly intact. Bilateral upper and lower extremity muscle strength intact and sensation intact. Psych: well appearing, appropriate affect Assessment/Plan: Patient is a 53-year-old male with past medical history of sleep apnea, hyperlipidemia, GERD and depression who presents to the ED with chief complaint of shortness of breath for few weeks found to be in A-fib after visit with primary care physician. He will be admitted to medicine service for management of new onset atrial fibrillation. Active: New onset atrial fibrillation ([id number] Score - 0 points) -C/w Heparin infusion for now pending cardiology evaluation -Start Metoprolol Succinate 50mg BID -Start Aspirin 81mg Daily -Cardiac Monitoring -Follow up Echocardiogram -Cardiology Consult -TSH wnl Mild Leukocytosis, likely reactive -Continue to monitor -No signs of active infection at this time Chronic: Sleep Apnea -Will continue BiPap, patient has his home machine GERD -Patient takes Omeprazole 20mg Daily at home, will substitute with pantoprazole 40mg while in hospital Depression -Continue Fluoxetine 80mg daily F: None E: Replete as needed N: Heart healthy diet A: As tolerated DVT prophylaxis: Heparin infusion The patient is admitted with an anticipated more than 2 midnight stay for evaluation of new onset A-fib CODE STATUS: Full code Discussed with: Patient Anticipated discharge place: Home Past Medical History Past Medical History: GERD/Reflux, Hyperlipidemia, Sleep Apnea/CPAP/BIPAP Additional Past Medical History / Comment(s): Hx Acid Reflux, no current problems. USES CPAP. History of Any Multi-Drug Resistant Organisms: None Reported Past Surgical History: Appendectomy, Back Surgery, Bariatric Surgery, Orthopedic Surgery Additional Past Surgical History / Comment(s): LUMBAR DISCETOMY, ORIF LEFT Ankle, HARDWARE REMOVED, BILATERAL ROTATOR CUFF REPAIR, RIGHT clavicle REPAIR, throat surgery - UPPP, COLONOSCOPY, Sleeve Gastrectomy. Past Anesthesia/Blood Transfusion Reactions: No Reported Reaction Past Psychological History: Depression Smoking Status: Former smoker Past Alcohol Use History: Occasional Past Drug Use History: None Reported - Past Family History Mother Family Medical History: No Reported History Father Family Medical History: No Reported History Medications and Allergies Home Medications Medication Instructions Recorded Confirmed Type Omeprazole [PriLOSEC] 20 mg PO DAILY 04/11/15 04/02/24 History FLUoxetine HCL [PROzac] 80 mg PO DAILY 04/02/24 04/02/24 History Allergies Allergy/AdvReac Type Severity Reaction Status Date / Time meperidine HCl [From Demerol] Allergy Rash/Hives Verified 04/02/24 18:36 Physical Exam Vitals: Vital Signs Temp Pulse Pulse Resp BP Pulse Ox 04/02/24 18:00 109 H 20 124/87 95 04/02/24 17:26 16 04/02/24 17:25 110 H 04/02/24 17:21 97 20 101/59 96 04/02/24 15:49 98.2 F 69 16 137/95 97 Intake and Output 04/02/24 04/02/24 04/02/24 06:59 14:59 22:59 Intake Total 0.334 Balance 0.334 Intake: Intake, IV Titration 0.334 Amount Heparin Sod,Pork in 0.45% 0.334 NaCl 25,000 unit In 0.45 % NaCl 1 250ml.bag @ 6.4 UNITS/KG/HR 10.015 mls/hr IV .Q24H [facility] Rx#: [id number] Other: Weight 156.489 kg Results CBC & Chem 7: 04/02/24 16:03 04/02/24 16:03 Labs: Abnormal Lab Results - Last 24 Hours (Table) 04/02/24 04/02/24 Range/Units 16:03 16:03 WBC 11.0 H (3.8-10.6) k/uL Glucose 103 H (74-99) mg/dL
[2024-04-03] MEDS: HEPARIN SODIUM 1,000 UN/ML (10ML VL) IV PRN (01:29)
[2024-04-03 06:44] LABS: HCT 44.5 % (39.0-53.0); HGB 13.9 gm/dL (13.0-17.5); Hypochromasia Slight; MCHC 31.2 g/dL (31.0-37.0); MCV 83.3 fL (80.0-100.0); Mean Platelet Volume 7.3; Platelet Count 235 k/uL (150-450); RBC 5.34 m/uL (4.30-5.90); RDW 13.1 % (11.5-15.5); WBC 9.2 k/uL (3.8-10.6)
--- NOTE | 2024-04-03 10:02 | P.PN ---
Subjective Progress Note Date: 04/03/24 Hospital course: Patient is a pleasant 53-year-old male with a past medical history ofsleep apnea (on Bipap at home), hyperlipidemia, GERD, and depression. He presented to the hospital on 04/02/2024 with a chief complaint of progressively worsening SOB over the few weeks. On , he tried to black pickler a slab of granite and then fell and couldn't catch his breath. Patient states his shortness of breath is worse with exertion. He states that he uses Bipap nightly and his AHI ranges between 3-5. He follows up regularly with multiple providers at [facility] including his PCP Rowena Childress every 6 months for bloodwork. He states he drinks 2 yetis of coffee approximately 40oz total daily. Patient also states that he was taking duloxetine 40 mg for his depression for about 2 months but then began having trouble sleeping so 1 month ago the dose was decreased to 20 mg and then patient self discontinued the duloxetine and started taking fluoxetine 80 mg 1 week ago which she had taken in the past. He denies any history of A-fib or palpitations. He denies chest pain, fevers, headaches, nausea, vomiting, diarrhea. He denies any history of heart or thyroid disease, strokes, leg swelling, calf tenderness, and blood clots. He also denies past use of blood thinners or aspirin. Vitals on admission: Temperature 98.2 temperature 98.2, heart rate 110, blood pressure 137/95, 97% O2 saturation on room air EKG atrial fibrillation at 96 bpm with no acute ST changes, poor R-wave progression, with QTc 408 ms CXR shows no acute cardiopulmonary disease or process Labs on admission show WBCs 11. Hemoglobin 14.2. Platelets 242. PT 10.4. INR 0.9. PTT 24.3. D-dimer 0.42. Sodium 139, potassium 3.9, chloride 105, bicarb 24, BUN 19, creatinine 0.85, glucose 103. Calcium 9.1. Magnesium 2.1. TSH 0.793. Physical exam: Vital signs reviewed and stable. General: Nontoxic, no distress and appears stated age. Derm: Skin warm and dry, normal coloration for ethnicity. Head: Atraumatic, normocephalic and symmetric. Eyes: EOM's intact, no lid lag, and anicteric sclera Mouth: no lip lesions, mucus membranes moist Cardiovascular: Irregularly irregular with no noted murmur, positive posterior tibial pulses bilaterally, and cap refill < 2 seconds. Lungs: Respirations even, regular, and unlabored on room air. Lungs CTA bilaterally, no rhonchi, no rales, no wheezing, and no accessory muscle usage. Abdominal: soft, nontender to palpation, no guarding, no appreciable organomegaly Ext: ROM intact. No gross muscle atrophy, scant lower extremity edema, no contractures Neuro: Speech clear, face symmetrical and CN II-XII grossly intact with no noted focal neuro deficits Psych: Alert and oriented to person, place, time, and situation. Appropriate and pleasant affect. Assessment and Plan of Care: New onset atrial fibrillation ([id number] Score - 0 points) -C/w Heparin infusion for now pending cardiology recommendations -Continue Metoprolol Succinate 50mg BID, aspirin 81 mg daily -Patient to remain on continuous telemetry monitoring -Follow up Echocardiogram once completed -Cardiology Consulted, appreciate recommendations -TSH normal findings at 0.793. Lipid profile unremarkable. Mild Leukocytosis, likely reactive. Resolved. -Likely reactive secondary to A-fib RVR. No signs of infection. Obstructive sleep apnea -Continue use of CPAP nightly and while napping. GERD Continue Protonix 40 mg daily.- Depression -Continue Fluoxetine 80mg daily Data and imaging reviewed: Morning labs reviewed. CBC unremarkable. PTT subtherapeutic at 35.9. Lipid profile unremarkable. TSH 0.793. Vital signs reviewed. Blood pressure 122/91, heart rate 105, respiratory rate 18, and SpO2 of 96% on room air. CODE STATUS: Full code DVT prophylaxis: Heparin Anticipated discharge date: Pending clinical course, likely 24 to [address]: Home Patient was seen independently by Nurse Pracitioner. This document was prepared using [employer] dictation software. Please allow for errors in high court justice, while rare they do occur. Renard Major NP rendered care for this patient independently, reviewed the findings and plan as documented in the note above and agree with plan. I did not physically speak with or examine the patient on this date. Objective - Vital Signs Vital signs: Vital Signs Temp 98.2 F 04/02/24 15:49 Pulse 101 H 04/03/24 06:33 Resp 18 04/03/24 06:33 BP 131/98 04/03/24 06:33 Pulse Ox 97 04/03/24 06:33 FiO2 Intake & Output 04/02/24 04/03/24 04/03/24 18:59 06:59 18:59 Intake Total 0.334 74.5 Balance 0.334 74.5 Weight 156.489 kg Intake: Intake, IV Titration 0.334 74.5 Amount Heparin Sod,Pork in 0.45% 0.334 74.5 NaCl 25,000 unit In 0.45 % NaCl 1 250ml.bag @ 6.4 UNITS/KG/HR 10.015 mls/hr IV .Q24H [facility] Rx#: [id number] - Labs CBC & Chem 7: 04/03/24 06:17 04/02/24 16:03 Labs: Abnormal Lab Results - Last 24 Hours (Table) 04/02/24 04/02/24 04/03/24 Range/Units 16:03 16:03 07:03 WBC 11.0 H (3.8-10.6) k/uL APTT 35.9 H (22.0-30.0) sec Glucose 103 H (74-99) mg/dL
[2024-04-03] MEDS: METOPROLOL TARTRATE 50 MG TAB PO SCH (10:27)
[2024-04-03] MEDS: ASPIRIN 81 MG PO SCH (10:27)
[2024-04-03] MEDS: PANTOPRAZOLE 40 MG TABLET PO SCH (10:28)
[2024-04-03] MEDS: FLUoxetine HCL 20 MG CAP PO SCH (10:28)
--- NOTE | 2024-04-03 12:46 | P.CRDCN ---
History of Present Illness History of present illness: HISTORY OF PRESENT ILLNESS: This is a 53-year-old male with a past medical history significant for reported borderline hyperlipidemia, frequent PVCs, morbid obesity, and obstructive sleep apnea with CPAP use. Patient used to follow in the office with Dr. Key but has not been seen since 2019. We have been asked to see the patient in consultation for new onset atrial fibrillation. Patient examined at the bedside in the emergency room. Patient states he has been feeling short of breath for the past few weeks but thought it was just secondary to a cold. He states in [place] he went to cone picker a piece of [place] and dropped it. He states when he went to pick it back up he was extremely short of breath. He denied having any chest pain or pressure. He denied any palpitations. Patient was found to be in atrial fibrillation when he presented to the emergency room. He remains in atrial fibrillation with a heart rate of 101 at the time of examination. Patient does have a history of sleep apnea and reports compliance with his CPAP. DIAGNOSTICS: - EKG reveals atrial fibrillation with controlled ventricular rate - Chest xray negative for acute process - Laboratory data: WBC 11.0. Hemoglobin 14.2. Platelet count 242. D-dimer 0.42. Sodium 139. Potassium 3.9. BUN 19. Creatinine 0.85. Magnesium 2.1. Troponin negative x 1. TSH 0.793. - Current home cardiac medications include none. - Most recent echocardiogram obtained in 2018 revealing ejection fraction 45 to 50%, global LV hypokinesis without segmental wall motion abnormalities, mild MR, mild TR - Patient underwent stress testing in November 2018 which was negative for ischemia - Cardiac catheterization history: Patient denies REVIEW OF SYSTEMS: At the time of my exam: CONSTITUTIONAL: Denies fever or chills. HEENT: Denies blurred vision, vision changes, or eye pain. Denies hemoptysis CARDIOVASCULAR: Denies chest pain. Denies orthopnea. Denies PND. Denies palpitations RESPIRATORY: Denies shortness of breath. GASTROINTESTINAL: Denies abdominal pain. Denies nausea or vomiting. HEMATOLOGIC: Denies bleeding disorders. GENITOURINARY: Denies any blood in urine. SKIN: Denies pruitis. Denies rash. PHYSICAL EXAM: VITAL SIGNS: Reviewed. GENERAL: Well-developed in no acute distress. HEENT: Head is normocephalic. Pupils are equal, round. Sclerae anicteric. Mucous membranes of the mouth are moist. Neck supple. No JVD or thyromegaly LUNGS: Respirations even and unlabored. Lungs essentially clear to auscultation bilaterally. HEART: Irregular rate and rhythm. S1 and S2 heard. ABDOMEN: Soft. Nondistended. Nontender. EXTREMITIES: Normal range of motion. No clubbing or cyanosis. Peripheral pulses intact. No lower extremity edema NEUROLOGIC: Awake and alert. Oriented x 3. ASSESSMENT: Shortness of breath New onset atrial fibrillation with mild RVR Obstructive sleep apnea with CPAP use History of mild cardiomyopathy, 45 to 50%, suspect nonischemic Morbid obesity: BMI 45.5 Reported borderline hyperlipidemia History of frequent PVCs PLAN: Obtain 2D echo to assess cardiac structure and function Patient has been started on metoprolol 50 mg twice a day Check lipid panel as patient reports history of borderline hyperlipidemia Continue IV heparin until echo has resulted. If echo is normal, recommend transitioning to Eliquis short-term as patient may require outpatient cardio version. Continue telemetry monitoring TSH checked and within normal limits Further recommendations pending patient course Nurse practitioner note has been reviewed by physician. Signing provider agrees with the documented findings, assessment, and plan of care documented by PROTECTIVE SERVICES CASE WORKER as a scribe. Past Medical History Past Medical History: GERD/Reflux, Hyperlipidemia, Sleep Apnea/CPAP/BIPAP Additional Past Medical History / Comment(s): Hx Acid Reflux, no current problems. USES CPAP. History of Any Multi-Drug Resistant Organisms: None Reported Past Surgical History: Appendectomy, Back Surgery, Bariatric Surgery, Orthopedic Surgery Additional Past Surgical History / Comment(s): LUMBAR DISCETOMY, ORIF LEFT Ankle, HARDWARE REMOVED, BILATERAL ROTATOR CUFF REPAIR, RIGHT clavicle REPAIR, throat surgery - UPPP, COLONOSCOPY, Sleeve Gastrectomy. Past Anesthesia/Blood Transfusion Reactions: No Reported Reaction Past Psychological History: Depression Smoking Status: Former smoker Past Alcohol Use History: Occasional Past Drug Use History: None Reported - Past Family History Mother Family Medical History: No Reported History Father Family Medical History: No Reported History Medications and Allergies Home Medications Medication Instructions Recorded Confirmed Type Omeprazole [PriLOSEC] 20 mg PO DAILY 04/11/15 04/02/24 History FLUoxetine HCL [PROzac] 80 mg PO DAILY 04/02/24 04/02/24 History Allergies Allergy/AdvReac Type Severity Reaction Status Date / Time meperidine HCl [From Demerol] Allergy Rash/Hives Verified 04/02/24 18:36 Physical Exam Vitals: Vital Signs Temp Pulse Pulse Resp BP Pulse Ox 04/03/24 06:33 101 H 18 131/98 97 04/03/24 01:26 96 18 99/78 94 L 04/02/24 21:06 101 H 18 119/96 95 04/02/24 18:00 109 H 20 124/87 95 04/02/24 17:26 16 04/02/24 17:25 110 H 04/02/24 17:21 97 20 101/59 96 04/02/24 15:49 98.2 F 69 16 137/95 97 Intake and Output 04/02/24 04/03/24 04/03/24 22:59 06:59 14:59 Intake Total 0.334 74.5 Balance 0.334 74.5 Intake: Intake, IV Titration 0.334 74.5 Amount Heparin Sod,Pork in 0.45% 0.334 74.5 NaCl 25,000 unit In 0.45 % NaCl 1 250ml.bag @ 6.4 UNITS/KG/HR 10.015 mls/hr IV .Q24H [facility] Rx#: [id number] Other: Weight 156.489 kg Results 04/03/24 06:17 04/02/24 16:03 Cardiac Enzymes 04/02/24 04/02/24 Range/Units 16:03 16:03 AST 27 (17-59) U/L Troponin I 0.013 (0.000-0.034) ng/mL Coagulation 04/02/24 04/03/24 04/03/24 Range/Units 16:03 00:10 07:03 PT 10.4 (10.0-12.5) sec APTT 24.3 27.5 35.9 H (22.0-30.0) sec CBC 04/02/24 04/03/24 Range/Units 16:03 06:17 WBC 11.0 H 9.2 (3.8-10.6) k/uL RBC 5.46 5.34 (4.30-5.90) m/uL Hgb 14.2 13.9 (13.0-17.5) gm/dL Hct 45.0 44.5 (39.0-53.0) % Plt Count 242 235 (150-450) k/uL Comprehensive Metabolic Panel 04/02/24 Range/Units 16:03 Sodium 139 (137-145) mmol/L Potassium 3.9 (3.5-5.1) mmol/L Chloride 105 (98-107) mmol/L Carbon Dioxide 24 (22-30) mmol/L BUN 19 (9-20) mg/dL Creatinine 0.85 (0.66-1.25) mg/dL Glucose 103 H (74-99) mg/dL Calcium 9.1 (8.4-10.2) mg/dL AST 27 (17-59) U/L ALT 25 (4-49) U/L Alkaline Phosphatase 83 (38-126) U/L Total Protein 7.2 (6.3-8.2) g/dL Albumin 4.4 (3.5-5.0) g/dL Current Medications Generic Name Dose Route Start Last Admin Trade Name Freq PRN Reason Stop Dose Admin Aspirin 81 mg 04/03/24 09:00 Aspirin 81 Mg PO DAILY [facility] Fluoxetine HCl 80 mg 04/03/24 09:00 Fluoxetine Hcl 20 Mg Cap PO DAILY [facility] Heparin Sodium (Porcine) 0 unit 04/02/24 17:41 04/03/24 01:29 Heparin Sodium 1,000 Un/Ml (10ml Vl) IV 4,000 unit PER PROTOCOL PRN Administration Low PTT Protocol Heparin Sodium/Sodium Chloride 250 mls @ 10.015 mls/hr 04/02/24 17:45 04/03/24 01:30 25,000 unit/ Sodium Chloride IV 9.39 units/kg/hr .Q24H [facility] 14.694 mls/hr Titration Protocol 6.4 UNITS/KG/HR Metoprolol Tartrate 50 mg 04/03/24 09:00 Metoprolol Tartrate 50 Mg Tab PO BID [facility] Pantoprazole Sodium 40 mg 04/03/24 07:30 Pantoprazole 40 Mg Tablet PO AC-[id number] [facility] Intake and Output 04/02/24 04/03/24 04/03/24 22:59 06:59 14:59 Intake Total 0.334 74.5 Balance 0.334 74.5 Intake: Intake, IV Titration 0.334 74.5 Amount Heparin Sod,Pork in 0.45% 0.334 74.5 NaCl 25,000 unit In 0.45 % NaCl 1 250ml.bag @ 6.4 UNITS/KG/HR 10.015 mls/hr IV .Q24H [facility] Rx#: [id number] Other: Weight 156.489 kg 04/03/24 06:17 04/02/24 16:03
[2024-04-03 16:01] LABS: Chol/HDL Ratio 3.75 Ratio; LDL Cholesterol,Calculated 114.6 mg/dL (0.0-131.0)
--- NOTE | 2024-04-03 18:38 | CA ---
Transthoracic Echo Report Name: Casper Daily Age: 53 Gender: M : 1970 Exam Date: 04/03/2024 13:32 Exam Location: [facility] Ht (in): 73 Wt (lb): 345 Ordering Physician: Lilly Moran MD Attending/Referring Phys: Sales Receptionist Lizett Matthews RDCS Procedure CPT: Indications: LV function, new onset afib Cardiac Hx: Technical Quality: Very technically difficult study Contrast 1: Definity Total Dose (mL): 2 Contrast 2: Total Dose (mL): MEASUREMENTS (Male / Female) Normal Values 2D ECHO LV Diastolic Diameter PLAX 5.8 cm 4.2 - 5.9 / 3.9 - 5.3 cm LV Systolic Diameter PLAX 5.1 cm IVS Diastolic Thickness 1.3 cm 0.6 - 1.0 / 0.6 - 0.9 cm LVPW Diastolic Thickness 1.1 cm 0.6 - 1.0 / 0.6 - 0.9 cm LV Relative Wall Thickness 0.4 RV Internal Dim ED PLAX 3.4 cm LA Systolic Diameter LX 4.4 cm 3.0 - 4.0 / 2.7 - 3.8 cm LV Diastolic Volume MOD BP 105.8 cm??? 67 - 155 / 56 - 104 cm??? LV Systolic Volume MOD BP 53.8 cm??? 22 - 58 / 19 - 49 cm??? LV Ejection Fraction MOD BP 49.2 % >= 55 % LV Cardiac Index MOD BP 1733.5 cm???/min???m??? LV Diastolic Volume MOD 4C 88.1 cm??? LV Systolic Volume MOD 4C 51.3 cm??? LV Ejection Fraction MOD 4C 41.8 % LV Cardiac Index MOD 4C 1226.9 cm???/min???m??? LV Diastolic Length 4C 7.8 cm LV Systolic Length 4C 7.7 cm LV Diastolic Volume MOD 2C 96.3 cm??? LV Systolic Volume MOD 2C 66.6 cm??? LV Ejection Fraction MOD 2C 30.8 % LV Cardiac Index MOD 2C 986.3 cm???/min???m??? LV Diastolic Length 2C 7.9 cm LV Systolic Length 2C 7.9 cm M-MODE Aortic Root Diameter MM 3.8 cm DOPPLER AV Peak Velocity 109.9 cm/s AV Peak Gradient 4.8 mmHg MV Area PHT 5.4 cm??? TR Peak Velocity 263.2 cm/s TR Peak Gradient 27.7 mmHg Right Ventricular Systolic Press 37.7 mmHg FINDINGS Left Ventricle Left ventricular ejection fraction is estimated at 30-35 %. Moderatly decreased left ventricular ejection fraction. Mild concentric left ventricular hypertrophy. Right Ventricle Mild right ventricular dilatation. Mild pulmonary hypertension. Right Atrium Right atrium not well visualized. Left Atrium Mildly increased left atrial diameter. No left atrial thrombus or mass present. Mitral Valve Structurally normal mitral valve. No mitral stenosis, regurgitation or prolapse. Aortic Valve Trileaflet aortic valve. No aortic valve stenosis or regurgitation. Tricuspid Valve Structurally normal tricuspid valve. Mild tricuspid regurgitation. Pulmonic Valve Structurally normal pulmonic valve. No pulmonic regurgitation. Pericardium No pericardial or pleural effusion. Aorta Mild aortic dilatation at the level of the sinuses of valsalva 38 mm CONCLUSIONS Extremely difficult study for interpretation Impaired LV function with EF between 30 to 35% and global hypokinesia and mild LVH Poorly visualized intracardiac valves No pericardial effusion Previewed by: Dr. James Wheatley MD (Electronically Signed) Final Date: 03 April 2024 18:37
[2024-04-04 09:48] LABS: HCT 45.7 % (39.6-50.0); HGB 13.5 g/dL (13.0-17.0); MCH 25.1 pg (27.0-32.0); MCHC 29.5 g/dL (32.0-37.0); MCV 85.1 FL (80.0-97.0); NRBC Per 100 WBC 0 X 10*3/uL (0.00-0.01); Platelet Count 252 X 10*3/uL (140-440); RBC 5.37 X 10*6/uL (4.40-5.60); RDW 12.8 % (11.5-14.5); WBC 10.01 X 10*3/uL (4.50-10.00)
[2024-04-04 10:12] LABS: Blood Urea Nitrogen 18.9 mg/dL (9.0-27.0); Carbon Dioxide 26.3 mmol/L (21.6-31.8); Chloride 107 mmol/L (96-109); Glucose 109 mg/dL (70-110); Magnesium 2.2 mg/dL (1.5-2.4); Potassium 4.4 mmol/L (3.5-5.5); Sodium 141 mmol/L (135-145)
[2024-04-04 10:13] LABS: Calcium 8.9 mg/dL (8.7-10.3)
--- NOTE | 2024-04-04 11:17 | P.PN ---
Subjective Progress Note Date: 04/04/24 This is a 53-year-old male with a past medical history significant for reported borderline hyperlipidemia, frequent PVCs, morbid obesity, and obstructive sleep apnea with CPAP use. Patient used to follow in the office with Dr. Key but has not been seen since 2019. We have been asked to see the patient in consultation for new onset atrial fibrillation. Patient examined at the bedside in the emergency room. Patient states he has been feeling short of breath for the past few weeks but thought it was just secondary to a cold. He states in [place] he went to bean picker a piece of [place] and dropped it. He states when he went to pick it back up he was extremely short of breath. He denied having any chest pain or pressure. He denied any palpitations. Patient was found to be in atrial fibrillation when he presented to the emergency room. He remains in atrial fibrillation with a heart rate of 101 at the time of examination. Patient does have a history of sleep apnea and reports compliance with his CPAP. DIAGNOSTICS: - EKG reveals atrial fibrillation with controlled ventricular rate - Chest xray negative for acute process - Laboratory data: WBC 11.0. Hemoglobin 14.2. Platelet count 242. D-dimer 0.42. Sodium 139. Potassium 3.9. BUN 19. Creatinine 0.85. Magnesium 2.1. Troponin negative x 1. TSH 0.793. - Current home cardiac medications include none. - Most recent echocardiogram obtained in 2018 revealing ejection fraction 45 to 50%, global LV hypokinesis without segmental wall motion abnormalities, mild MR, mild TR - Patient underwent stress testing in November 2018 which was negative for ischemia - Cardiac catheterization history: Patient denies 04/04/2024 Remains in atrial fibrillation with controlled ventricular response. Oertli on metoprolol tartrate 50 mg p.o. twice daily. He remains on IV heparin. Echocardiogram with Doppler study was technically difficult but showed impaired LV systolic function with an ejection fraction of 30 to 35% and global hypo kinesis with mild LVH. Overall patient is feeling somewhat better. Continues to feel short of breath. Has no lower extremity edema, orthopnea or PND. He denies any chest discomfort. He has had no palpitations, dizziness or syncope. Of note the patient is scheduled to undergo knee surgery on the of this month. The patient is aware that he will need to postpone the surgery. PHYSICAL EXAM: VITAL SIGNS: Reviewed. GENERAL: Well-developed in no acute distress. HEENT: Head is normocephalic. Pupils are equal, round. Sclerae anicteric. Mucous membranes of the mouth are moist. Neck supple. No JVD or thyromegaly LUNGS: Respirations even and unlabored. Lungs essentially clear to auscultation bilaterally. HEART: Irregular rate and rhythm. S1 and S2 heard. ABDOMEN: Soft. Nondistended. Nontender. EXTREMITIES: Normal range of motion. No clubbing or cyanosis. Peripheral pulses intact. No lower extremity edema NEUROLOGIC: Awake and alert. Oriented x 3. ASSESSMENT: Shortness of breath New onset atrial fibrillation with mild RVR Cardiomyopathy, 30 to 35%, ischemic versus nonischemic however suspect nonischemic Obstructive sleep apnea with CPAP use Morbid obesity: BMI 45.5 Reported borderline hyperlipidemia History of frequent PVCs PLAN: From cardiology's perspective we will stop IV heparin and switch to Eliquis 5 mg p.o. twice daily. We will add Entresto 24-26 mg twice daily as well as Aldactone 25 mg daily. Repeat renal functions in the morning. Patient will need to be evaluated for possible cardioversion in the future as well as undergo further ischemic workup. We will continue to follow the patient and provide further recommendations accordingly. CERTIFIED DIABETES EDUCATOR note has been reviewed, I agree with a documented findings and plan of care. Patient was seen and examined. Objective - Vital Signs Vital signs: Vital Signs Temp 97.7 F 04/04/24 06:50 Pulse 73 04/04/24 06:50 Resp 18 04/04/24 06:50 BP 123/76 04/04/24 06:50 Pulse Ox 99 04/04/24 06:50 FiO2 Intake & Output 04/03/24 04/04/24 04/04/24 18:59 06:59 18:59 Intake Total 147.675 250.594 Output Total 500 Balance 147.675 -249.406 Weight 156.489 kg Intake: Intake, IV Titration 147.675 250.594 Amount Heparin Sod,Pork in 0.45% 147.675 250.594 NaCl 25,000 unit In 0.45 % NaCl 1 250ml.bag @ 6.4 UNITS/KG/HR 10.015 mls/hr IV .Q24H [facility] Rx#: [id number] Output: Urine 500 Other: # Voids 1 - Labs CBC & Chem 7: 04/04/24 03:59 04/04/24 03:59 Labs: Abnormal Lab Results - Last 24 Hours (Table) 04/03/24 04/04/24 04/04/24 Range/Units 20:09 03:59 03:59 WBC 10.01 H (4.50-10.00) X 10*3/uL MCH 25.1 L (27.0-32.0) pg MCHC 29.5 L (32.0-37.0) g/dL APTT 41.0 H (22.0-30.0) sec BUN/Creatinine Ratio 21.00 H (12.00-20.00) Ratio
[2024-04-04] MEDS: SACUBITRIL/VALSARTAN 24 MG-26 MG TABLET PO SCH (11:51)
[2024-04-04] MEDS: APIXABAN 5 MG TAB PO SCH (11:51)
[2024-04-04] MEDS: SPIRONOLACTONE 25 MG TAB PO SCH (11:51)
--- NOTE | 2024-04-04 18:10 | P.PN ---
Subjective Progress Note Date: 04/04/24 Hospital course: Patient is a pleasant 53-year-old male with a past medical history ofsleep apnea (on Bipap at home), hyperlipidemia, GERD, and depression. He presented to the hospital on 04/02/2024 with a chief complaint of progressively worsening SOB over the few weeks. On , he tried to cone picker a slab of granite and then fell and couldn't catch his breath. Patient states his shortness of breath is worse with exertion. He states that he uses Bipap nightly and his AHI ranges between 3-5. He follows up regularly with multiple providers at [facility] including his PCP Rowena Childress every 6 months for bloodwork. He states he drinks 2 yetis of coffee approximately 40oz total daily. Patient also states that he was taking duloxetine 40 mg for his depression for about 2 months but then began having trouble sleeping so 1 month ago the dose was decreased to 20 mg and then patient self discontinued the duloxetine and started taking fluoxetine 80 mg 1 week ago which she had taken in the past. He denies any history of A-fib or palpitations. He denies chest pain, fevers, headaches, nausea, vomiting, diarrhea. He denies any history of heart or thyroid disease, strokes, leg swelling, calf tenderness, and blood clots. He also denies past use of blood thinners or aspirin. Vitals on admission: Temperature 98.2 temperature 98.2, heart rate 110, blood pressure 137/95, 97% O2 saturation on room air EKG atrial fibrillation at 96 bpm with no acute ST changes, poor R-wave progression, with QTc 408 ms CXR shows no acute cardiopulmonary disease or process Labs on admission show WBCs 11. Hemoglobin 14.2. Platelets 242. PT 10.4. INR 0.9. PTT 24.3. D-dimer 0.42. Sodium 139, potassium 3.9, chloride 105, bicarb 24, BUN 19, creatinine 0.85, glucose 103. Calcium 9.1. Magnesium 2.1. TSH 0.793. Physical exam: Patient seen and fully evaluated at bedside this morning he reports currently feeling well and denies having any complaints at this time. Cardiology recommending additional 24 hours of monitoring and discussed with patient and at bedside we will ambulate patient in halls tomorrow and monitor heart rate to ensure it remains controlled prior to discharge. Patient and reported understanding and all questions answered at this time. Vital signs reviewed and stable. General: Nontoxic, no distress and appears stated age. Derm: Skin warm and dry, normal coloration for ethnicity. Head: Atraumatic, normocephalic and symmetric. Eyes: EOM's intact, no lid lag, and anicteric sclera Mouth: no lip lesions, mucus membranes moist Cardiovascular: Irregularly irregular with no noted murmur, positive posterior tibial pulses bilaterally, and cap refill < 2 seconds. Lungs: Respirations even, regular, and unlabored on room air. Lungs CTA bilaterally, no rhonchi, no rales, no wheezing, and no accessory muscle usage. Abdominal: soft, nontender to palpation, no guarding, no appreciable organomegaly Ext: ROM intact. No gross muscle atrophy, scant lower extremity edema, no c ontractures Neuro: Speech clear, face symmetrical and CN II-XII grossly intact with no noted focal neuro deficits Psych: Alert and oriented to person, place, time, and situation. Appropriate and pleasant affect. Assessment and Plan of Care: New onset atrial fibrillation ([id number] Score - 0 points) -Cardiology discontinued heparin and started patient on Eliquis 5 mg twice daily. -Echocardiogram was completed showing reduced EF of 30 to 35% with no significant valvular or structural abnormalities reported. -Continue Metoprolol Succinate 50mg BID, aspirin 81 mg daily, and patient was started on Entresto 24-26 mg tablet twice daily and Aldactone 25 mg daily. -Patient to remain on continuous telemetry monitoring -TSH normal findings at 0.793. Lipid profile unremarkable. Mild Leukocytosis, likely reactive. -Likely reactive secondary to A-fib RVR. No signs of infection. Obstructive sleep apnea -Continue use of CPAP nightly and while napping. GERD -Continue Protonix 40 mg daily. Depression -Continue Fluoxetine 80mg daily Data and imaging reviewed: Morning labs reviewed. CBC showing mild leukocytosis with WBC count of 10.01. BMP unremarkable. Blood glucose 109. Magnesium 2.2. Vital signs reviewed. Blood pressure 123/76, heart rate 73, respiratory rate 18, temp 97.7 F, and SpO2 of 99% on room air. CODE STATUS: Full code DVT prophylaxis: Heparin Anticipated discharge date: Pending clinical course, likely tomorrow morning Anticipated discharge place: Home Patient was seen independently by Nurse Pracitioner. This document was prepared using [employer] dictation software. Please allow for errors in e commerce marketing analyst, while rare they do occur. Renard Major NP rendered care for this patient independently, reviewed the fi ndings and plan as documented in the note above and agree with plan. I did not physically speak with or examine the patient on this date. Objective - Vital Signs Vital signs: Vital Signs Temp 97.7 F 04/04/24 06:50 Pulse 73 04/04/24 06:50 Resp 18 04/04/24 06:50 BP 123/76 04/04/24 06:50 Pulse Ox 99 04/04/24 06:50 FiO2 Intake & Output 04/03/24 04/04/24 04/04/24 18:59 06:59 18:59 Intake Total 147.675 250.594 Output Total 500 Balance 147.675 -249.406 Weight 156.489 kg Intake: Intake, IV Titration 147.675 250.594 Amount Heparin Sod,Pork in 0.45% 147.675 250.594 NaCl 25,000 unit In 0.45 % NaCl 1 250ml.bag @ 6.4 UNITS/KG/HR 10.015 mls/hr IV .Q24H EDA Rx#: [id number] Output: Urine 500 Other: # Voids 1 - Labs CBC & Chem 7: 04/04/24 03:59 04/04/24 03:59 Labs: Abnormal Lab Results - Last 24 Hours (Table) 04/03/24 04/04/24 Range/Units 20:09 03:59 WBC 10.01 H (4.50-10.00) X 10*3/uL MCH 25.1 L (27.0-32.0) pg MCHC 29.5 L (32.0-37.0) g/dL APTT 41.0 H (22.0-30.0) sec
[2024-04-05 01:38] VITALS: RESP 18
--- NOTE | 2024-04-05 12:34 | P.PN ---
Subjective Progress Note Date: 04/05/24 This is a 53-year-old male with a past medical history significant for reported borderline hyperlipidemia, frequent PVCs, morbid obesity, and obstructive sleep apnea with CPAP use. Patient used to follow in the office with Dr. Key but has not been seen since 2019. We have been asked to see the patient in consultation for new onset atrial fibrillation. Patient examined at the bedside in the emergency room. Patient states he has been feeling short of breath for the past few weeks but thought it was just secondary to a cold. 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 He states when he went to pick it back up he was extremely short of breath. He denied having any chest pain or pressure. He denied any palpitations. Patient was found to be in atrial fibrillation when he presented to the emergency room. He remains in atrial fibrillation with a heart rate of 101 at the time of examination. Patient does have a history of sleep apnea and reports compliance with his CPAP. DIAGNOSTICS: - EKG reveals atrial fibrillation with controlled ventricular rate - Chest xray negative for acute process - Laboratory data: WBC 11.0. Hemoglobin 14.2. Platelet count 242. D-dimer 0.42. Sodium 139. Potassium 3.9. BUN 19. Creatinine 0.85. Magnesium 2.1. Troponin negative x 1. TSH 0.793. - Current home cardiac medications include none. - Most recent echocardiogram obtained in 2018 revealing ejection fraction 45 to 50%, global LV hypokinesis without segmental wall motion abnormalities, mild MR, mild TR - Patient underwent stress testing in November 2018 which was negative for ischemia - Cardiac catheterization history: Patient denies 04/04/2024 Remains in atrial fibrillation with controlled ventricular response. Oertli on metoprolol tartrate 50 mg p.o. twice daily. He remains on IV heparin. Echocardiogram with Doppler study was technically difficult but showed impaired LV systolic function with an ejection fraction of 30 to 35% and global hypo kinesis with mild LVH. Overall patient is feeling somewhat better. Continues to feel short of breath. Has no lower extremity edema, orthopnea or PND. He denies any chest discomfort. He has had no palpitations, dizziness or syncope. Of note the patient is scheduled to undergo knee surgery on the of this month. The patient is aware that he will need to postpone the surgery. 04/05/2024 Patient was seen and examined sitting up in a chair at the bedside. He is overall feeling well. Continues to have mild dyspnea on exertion when ambulating to the bathroom however feels this is somewhat better. Patient was started on Eliquis, Entresto and Aldactone yesterday. Vital signs are stable. Labs this morning are pending. He remains in atrial fibrillation with controlled ventricular response. PHYSICAL EXAM: VITAL SIGNS: Reviewed. GENERAL: Well-developed in no acute distress. HEENT: Head is normocephalic. Pupils are equal, round. Sclerae anicteric. Mucous membranes of the mouth are moist. Neck supple. No JVD or thyromegaly LUNGS: Respirations even and unlabored. Lungs essentially clear to auscultation bilaterally. HEART: Irregular rate and rhythm. S1 and S2 heard. ABDOMEN: Soft. Nondistended. Nontender. EXTREMITIES: Normal range of motion. No clubbing or cyanosis. Peripheral pulses intact. No lower extremity edema NEUROLOGIC: Awake and alert. Oriented x 3. ASSESSMENT: Shortness of breath New onset atrial fibrillation with mild RVR Cardiomyopathy, 30 to 35%, ischemic versus nonischemic however suspect nonischemic Obstructive sleep apnea with CPAP use Morbid obesity: BMI 45.5 Reported borderline hyperlipidemia History of frequent PVCs PLAN: From cardiology's perspective patient will need to be evaluated for possible cardioversion in the future as well as undergo further ischemic workup. Likely add SGLT2 inhibitor as an outpatient. From our standpoint patient may be discharged home and have BMP and NT Pro BNP as an outpatient prior to follow-up in about a week. LOG LOADER HELPER note has been reviewed, I agree with a documented findings and plan of care. Patient was seen and examined. Objective - Vital Signs Vital signs: Vital Signs Temp 98.2 F 04/05/24 07:30 Pulse 79 04/05/24 07:30 Resp 18 04/05/24 07:30 BP 115/81 04/05/24 07:30 Pulse Ox 94 L 04/05/24 07:30 FiO2 Intake & Output 04/04/24 04/05/24 04/05/24 18:59 06:59 18:59 Intake Total 480 Balance 480 Intake: Oral 480 Other: # Voids 2 2 - Labs CBC & Chem 7: 04/04/24 03:59 04/04/24 03:59 Labs: Abnormal Lab Results - Last 24 Hours (Table) 04/04/24 04/04/24 04/04/24 Range/Units 03:59 03:59 11:21 WBC 10.01 H (4.50-10.00) X 10*3/uL MCH 25.1 L (27.0-32.0) pg MCHC 29.5 L (32.0-37.0) g/dL APTT 46.3 H (22.0-30.0) sec BUN/Creatinine Ratio 21.00 H (12.00-20.00) Ratio
[2024-04-05 15:10] VITALS: BP 127/83; PULSE 74; TEMP 97.7
--- NOTE | 2024-04-05 17:02 | P.DS ---
Providers Date of admission: 04/02/24 17:43 Expected date of discharge: 04/05/24 Attending physician: Rick Barone Consults: 04/02/24 17:41 Consult Physician Urgent Consulting Provider: [facility] Consult Reason/Comments: New onset A-fib Do you want consulting provider notified?: Yes Primary care physician: [place] Hospital Course: Discharge Diagnosis: New onset atrial fibrillation. Echocardiogram was completed showing reduced EF of 30 to 35% with no significant valvular or structural abnormalities reported. Patient was evaluated by cardiology and transition from heparin infusion to oral anticoagulant with Eliquis 5 mg twice daily. Patient cleared from cardiac perspective recommending outpatient follow-up in their office in [address] Wheatley. Cardiomyopathy with EF of 30 to 35% (unclear if ischemic or nonischemic likely nonischemic). Patient was started on Entresto 24 mg / 26 mg tablets twice daily, metoprolol to tartrate 50 mg twice daily, spironolactone 25 mg daily, and aspirin 81 mg daily. Mild Leukocytosis, reactive. Likely reactive secondary to A-fib RVR and resolved. No signs of infection. Obstructive sleep apnea. Continue use of CPAP nightly and while napping. GERD. Continue Protonix 40 mg daily. Depression. Continue Fluoxetine 80mg daily Hospital course: Patient is a pleasant 53-year-old male with a past medical history of obstructive sleep apnea BiPAP dependent nightly, hyperlipidemia, GERD, and depression. He presented to the hospital on 04/02/2024 with a chief complaint of progressively worsening SOB over the few weeks. Upon arrival patient underwent evaluation in the emergency department. Vital signs upon arrival show blood pressure 137/95, heart rate 69, respiratory rate 16, temp 98.2 F, and SpO2 of 97% on room air. EKG was completed showing atrial fibrillation with a controlled ventricular response at 96 bpm. Chest x-ray was negative for acute cardiopulmonary process. Labs completed and reviewed. CBC showing leukocytosis with WBC count of 11.0 otherwise normal findings. Coagulation profile normal findings. D-dimer 0.42. BMP unremarkable. Blood glucose 103. Magnesium 2.1. Liver profile unremarkable. Troponin was 0.013. TSH was 0.793. Patient started on heparin infusion and admitted under our services with consultation to cardiology for new onset atrial fibrillation. Lipid profile unremarkable.Echocardiogram was completed showing reduced EF of 30 to 35% with no significant valvular or structural abnormalities reported. Patient was evaluated by cardiology and transition from heparin infusion to oral anticoagulant with Eliquis 5 mg twice daily. Medication changes were made and patient was also started on Entresto 24 mg / 26 mg tablets twice daily, metoprolol to tartrate 50 mg twice daily, spironolactone 25 mg daily, and aspirin 81 mg daily. Patient cleared from cardiac perspective recommending outpatient follow-up in their office in [address] Wheatley. He is currently medically optimized and free from any complaints or concerns at this time. Patient instructed he will need to follow-up outpatient with PCP in 1 to 2 days and with cardiology consultant in 1 week. Physical exam: Vital signs reviewed and stable. General: Nontoxic, no distress and appears stated age. Derm: Skin warm and dry, normal coloration for ethnicity. Head: Atraumatic, normocephalic and symmetric. Eyes: EOM's intact, no lid lag, and anicteric sclera Mouth: no lip lesions, mucus membranes moist Cardiovascular: Irregularly irregular with no noted murmur, positive posterior tibial pulses bilaterally, and cap refill < 2 seconds. Lungs: Respirations even, regular, and unlabored on room air. Lungs CTA bilaterally, no rhonchi, no rales, no wheezing, and no accessory muscle usage. Abdominal: soft, nontender to palpation, no guarding, no appreciable organomegaly Ext: ROM intact. No gross muscle atrophy, scant lower extremity edema, no contractures Neuro: Speech clear, face symmetrical and CN II-XII grossly intact with no noted focal neuro deficits Psych: Alert and oriented to person, place, time, and situation. Appropriate and pleasant affect. A total of 37 minutes of time were spent preparing this complex discharge summary. Pt was discharged on 04/05/2024 at 2:48 PM. Patient was seen independently by Nurse Practitioner. This document was prepared using [employer] dictation software. Please allow for errors in landscape and yardwork laborer while rare they do occur. Renard Major NP rendered care for this patient independently, reviewed the findings and plan as documented in the note above. I did not physically speak with or examine the patient on this date. Patient Condition at Discharge: Stable Plan - Discharge Summary Discharge Rx Participant: No New Discharge Prescriptions: New Apixaban [Eliquis] 5 mg PO BID #180 tab Sacubitril/Valsartan [Entresto 24 mg-26 mg Tablet] 1 each PO BID #60 tab Metoprolol Tartrate [Lopressor] 50 mg PO BID #180 tab Spironolactone [Aldactone] 25 mg PO DAILY #90 tab Aspirin 81 mg PO DAILY #0 tab Continue Omeprazole [PriLOSEC] 20 mg PO DAILY FLUoxetine HCL [PROzac] 80 mg PO DAILY Discharge Medication List Omeprazole [PriLOSEC] 20 mg PO DAILY 04/11/15 [History] FLUoxetine HCL [PROzac] 80 mg PO DAILY 04/02/24 [History] Apixaban [Eliquis] 5 mg PO BID #180 tab 04/05/24 [Rx] Aspirin 81 mg PO DAILY #0 tab 04/05/24 [Rx] Metoprolol Tartrate [Lopressor] 50 mg PO BID #180 tab 04/05/24 [Rx] Sacubitril/Valsartan [Entresto 24 mg-26 mg Tablet] 1 each PO BID #60 tab 04/05/24 [Rx] Spironolactone [Aldactone] 25 mg PO DAILY #90 tab 04/05/24 [Rx] Follow up Appointment(s)/Referral(s): James Wheatley MD [STAFF PHYSICIAN] - 1 Week Tate Friedman MD [STAFF PHYSICIAN] - (Local PCP's information you requested) [facility] [Primary Care Provider] - 1-2 days Ambulatory/Diagnostic Orders: Basic Metabolic Panel [LAB.AMB] Time Frame: 3 Days, Location: None Selected Patient Instructions/Handouts: A-fib (Atrial Fibrillation) (DC), Dilated Cardiomyopathy (DC) Activity/Diet/Wound Care/Special Instructions: Activity: As tolerated. Take breaks as needed. Remember as we discussed over the next couple weeks to allow time for your body to adjust to your new medications it is important to change positions slowly from lying to sitting, sitting before standing, and standing before walking. Isometric exercises can also be beneficial and these involve bladimir your muscles without actually moving your body. Isometrics squeeze the muscle and push the blood back toward the heart. They are simple to do and can be done lying in bed or seated in a comfortable chair. It's a good idea to do these in bed before getting up to prepare your body for sitting and standing. Transition slowly with your body. Go from lying to sitting on the edge of the bed. Stay there for several minutes, allowing the body to naturally adjust to the change in position. Once you are standing, pause and wait before walking to allow blood pressure to adjust again. If you feel lightheaded at any point, wait for a few minutes in that position to see if it resolves. If not, then return to the prior position as your body isn't adjusting properly. SLOWLY is the newsome. Diet: Heart healthy and carb consistent diet. Avoid salts, or foods with hidden salts such as canned or boxed foods and frozen dinners. Extra salt makes your heart work harder and traps the fluid in your body for longer. Special Instructions: Take all of your medications as directed and remember to keep all of your doctor's appointments and follow-up as needed. Wishing you and your wonderful family a happy and healthy new year!! Thank you for allowing us to participate in your care, it was truly a pleasure having you for our patient!!! . Discharge/Stand Alone Forms: Work/School Release Discharge Disposition: HOME SELF-CARE
[2024-04-05 23:24] LABS: NT-Pro-B-Type Natriuretic Pept 699 pg/mL (0-125)
[2024-04-05 23:26] LABS: BUN/Creat Ratio 17.89 Ratio (12.00-20.00); Blood Urea Nitrogen 16.1 mg/dL (9.0-27.0); Calcium 8.8 mg/dL (8.7-10.3); Carbon Dioxide 23.7 mmol/L (21.6-31.8); Chloride 104 mmol/L (96-109); Glucose 95 mg/dL (70-110); Potassium 4.6 mmol/L (3.5-5.5); Sodium 141 mmol/L (135-145)
== END 2024-04-05 16:17 | disposition home or self-care (01) ==
LOC: EC 15:31 → 6NMEDSUR 17:43
PROVIDERS: ADMIT Student in an Organized Health Care Education/Training Program; ATTEND Student in an Organized Health Care Education/Training Program
DX: I48.91 Unspecified atrial fibrillation (principal); I42.9 Cardiomyopathy, unspecified; I49.3 Ventricular premature depolarization; D72.829 Elevated white blood cell count, unspecified; G47.33 Obstructive sleep apnea (adult) (pediatric); K21.9 Gastro-esophageal reflux disease without esophagitis; E78.5 Hyperlipidemia, unspecified; F32.A Depression, unspecified; E66.01 Morbid (severe) obesity due to excess calories; Z68.42 Body mass index [BMI] 45.0-49.9, adult; Z79.899 Other long term (current) drug therapy; Z88.5 Allergy status to narcotic agent; Z99.89 Dependence on other enabling machines and devices; Z87.891 Personal history of nicotine dependence
CPT/HCPCS: 96376 ×3; 96366 ×4; 96365; 99291; 36415; 93005; 93306; 85379; 83880; 80061; 80053; 80048 ×2; 84443; 83735 ×2; 84484; 85025; 85027 ×2; 85610; 85730 ×3; 71046; G0378 ×4; Q9957; J1644 ×6

== ENCOUNTER → 2024-04-29 | Day surgery (SDC) | payer OTHER ==
[~2024-04-29] MED LIST changes: +LACTATED RINGERS 1,000 ML IV SCH; +LIDOCAINE 1% (10MG/ML) FOR IV START INTRADERMA PRN; +METOPROLOL TARTRATE 50 MG TAB PO STA; +MIDAZOLAM 2 MG/2 ML VIAL IV PRN; +PROPOFOL 10 MG/ML 20 ML VIAL IV ONE; -ceFAZolin 3 GM in SODIUM CHLORIDE 0.9% 100 ML IVPB PRN; +fentaNYL (PF) 50 MCG/ML 2 ML AMP IV PRN
[2024-04-29] MEDS: IV FLUID CONTINUATION 1,000 ML IV ONE ×2 (12:05→13:34)
[2024-04-29] MEDS: SODIUM CHLORIDE 0.9% 500 ML 500 ML IV SCH (12:19)
[2024-04-29] MEDS: BENZOCAINE SPRAY 1 EACH MM ONE (13:27)
[2024-04-29 13:47] VITALS: TEMP 97.4
[2024-04-29] MEDS: APIXABAN 5 MG TAB PO ONE (14:30)
[2024-04-29 14:47] VITALS: BP 116/68; PULSE 82; RESP 16
--- NOTE | 2024-04-29 19:25 | P.PCN ---
Date of Procedure: 04/29/24 Operative Findings: TRANSESOPHAGEAL ECHOCARDIOGRAM RETAIL WIRELESS ASSOCIATE: MCKENNA SANCHEZ MD, RPVI INDICATION: Rule out anticoagulant thrombus before cardioversion SEDATION: Conscious sedation COMPLICATION: None LEVEL OF SEDATION The procedure was performed using propofol with MEAT PROCESS WORKER in the room PROCEDURE DESCRIPTION: After obtaining an informed consent, the patient was brought to transesophageal echocardiogram room. Pulse oximetry and heart monitors were attached to the patient. The patient throat was sprayed using lidocaine. The patient was turned into left lateral position. After that a bite guard was placed. After an appropriate conscious sedation was initiated, the transesophageal echocardiogram was advanced through a bite guard into the mid esophagus. A 2-D echocardiogram images, color Doppler images, continuous wave images, pulse-wave images, of various cardiac structure were performed. After that the transesophageal echocardiogram probe was advanced into the stomach and fixed to obtain transgastric view was. The probe was brought into the mid esophagus. Inter-atrial septum was interrogated using 2D images, color Doppler images, and then contrast study. After that transesophageal echocardiogram was withdrawn out and upon withdrawing the descending thoracic aorta all the way up to the arch was evaluated. CONCLUSION: 1. Intact left atrial appendage and no evidence of any intracardiac thrombus 2. Intact interatrial septum with no evidence of shunt 3. Mildly impaired LV function with an ejection fraction around 45% 4. Trileaflet aortic valve with no stenosis with mild insufficiency 5. Intact mitral valve apparatus 6. No evidence of pericardial effusion
--- NOTE | 2024-04-29 19:26 | P.PCN ---
Date of Procedure: 04/29/24 Operative Findings: Cardioversion Report Performing physician James Wheatley M.D. Procedure performed Attempted cardioversion of atrial fibrillation using 200 J and x 2 Indication Symptomatic atrial fibrillation Complication None Level of sedation The procedure was performed under deep sedation using propofol with CHRO in the room Procedure description After obtaining an informed consent the patient was brought to the recovery room. Sedation was introduced using propofol with CHRO in the room. Subsequently the patient cardioverted from atrial fibrillation to normal sinus mechanism using 200 J and first attempt Postprocedure management Continue the current medical regimen Continue oral anticoagulation Follow-up with the patient
== END ==
LOC: OR 11:24
PROVIDERS: ATTEND Internal Medicine Interventional Cardiology
DX: I48.19 Other persistent atrial fibrillation (principal); E66.3 Overweight; G47.33 Obstructive sleep apnea (adult) (pediatric); I42.9 Cardiomyopathy, unspecified; Z88.8 Allergy status to other drugs, medicaments and biological substances; Z79.899 Other long term (current) drug therapy; Z79.82 Long term (current) use of aspirin; Z79.01 Long term (current) use of anticoagulants
CPT/HCPCS: 93312; 93320; 93325; 92960; J2704

== ENCOUNTER 2024-05-21 07:15 | Day surgery (SDC) | payer OTHER ==
[2024-05-19 09:01] VITALS: BMI 44.9
[~2024-05-21 07:15] MED LIST changes: +ALPRAZolam 0.25 MG TAB PO PRN; +ALPRAZolam 0.5 MG TAB PO PRN; -LACTATED RINGERS 1,000 ML IV SCH; -LIDOCAINE 1% (10MG/ML) FOR IV START INTRADERMA PRN; -METOPROLOL TARTRATE 50 MG TAB PO STA; -MIDAZOLAM 2 MG/2 ML VIAL IV PRN; +NITROGLYCERIN SL TABS 0.4 MG TAB SUBLINGUAL PRN; -PROPOFOL 10 MG/ML 20 ML VIAL IV ONE; -fentaNYL (PF) 50 MCG/ML 2 ML AMP IV PRN
[2024-05-21] MEDS: SODIUM CHLORIDE 0.9% 1,000 ML in EMPTY BAG 1 BAG IV SCH (07:41)
[2024-05-21] MEDS: ASPIRIN 325 MG TAB PO STA (07:41)
[2024-05-21] MEDS: IV FLUID CONTINUATION 1,000 ML IV ONE (07:43)
[2024-05-21 07:52] VITALS: RESP 16; TEMP 97.6
[2024-05-21 08:00] LABS: Basophils # (A) 0.1 k/uL (0-0.2); Basophils % (A) 1 %; Eosinophils # (A) 0.2 k/uL (0-0.7); Eosinophils % (A) 3 %; HCT 48.2 % (39.0-53.0); HGB 15.1 gm/dL (13.0-17.5); Hypochromasia Slight; Lymphocytes # (A) 2.2 k/uL (1.0-4.8); Lymphocytes % (A) 27 %; MCH 26.4 pg (25.0-35.0); MCHC 31.4 g/dL (31.0-37.0); Mean Platelet Volume 7.5; Monocytes # (A) 0.3 k/uL (0-1.0); Monocytes % (A) 3 %; Neutrophils # (A) 5.3 k/uL (1.3-7.7); Neutrophils % (A) 65 %; Platelet Count 260 k/uL (150-450); RBC 5.74 m/uL (4.30-5.90); RDW 13.6 % (11.5-15.5); WBC 8.2 k/uL (3.8-10.6)
[2024-05-21 08:25] LABS: African American GFR (CKD) >90 (>60 ml/min/1.73 sqM); Anion Gap 9 mmol/L; Blood Urea Nitrogen 19 mg/dL (9-20); Calcium 8.8 mg/dL (8.4-10.2); Carbon Dioxide 25 mmol/L (22-30); Chloride 104 mmol/L (98-107); Glucose 106 mg/dL (74-99); Non-African American GFR(CKD) >90 (>60 ml/min/1.73 sqM); Potassium 4.4 mmol/L (3.5-5.1); Sodium 138 mmol/L (137-145)
[2024-05-21] MEDS: HEPARIN SODIUM,PORCINE 10,000 UNIT in SODIUM CHLORIDE 0.9% 1,000 ML IRRIGATION PRN (09:23)
[2024-05-21] MEDS: HEPARIN SODIUM,PORCINE (1 ML) 2,500 UNIT in SODIUM CHLORIDE 0.9% 250 ML IRRIGATION PRN (09:23)
[2024-05-21] MEDS: MIDAZOLAM 2 MG/2 ML VIAL IVP ONE (09:54)
[2024-05-21] MEDS: LIDOCAINE 1% INJ 10MG/ML (20 ML MDV) SQ ONE (09:54)
[2024-05-21] MEDS: VERAPAMIL SYRINGE (5 MG/10 ML) INTRAARTER ONE (09:57)
[2024-05-21] MEDS: HEPARIN SODIUM 1,000 UN/ML (10ML VL) IVP ONE (09:58)
[2024-05-21] MEDS ORDERED: RX INFO: IV CONTRAST WAS GIVEN 1 EACH MISC MISCELLANE PRN (10:07)
[2024-05-21] MEDS: IOPAMIDOL-370 100ML BTL INJ ONE (10:08)
--- NOTE | 2024-05-21 10:10 | P.PCN ---
Date of Procedure: 05/21/24 Operative Findings: CARDIAC CATHETERIZATION PERFORMING PHYSICIAN: James Wheatley MD, RPVI PROCEDURE PERFORMED: 1. Selective right and left coronary angiogram 2. Ultrasound-guided access of the right radial artery INDICATION: Symptomatic 53-year-old gentleman with abnormal myocardial perfusion imaging s tress test COMPLICATION: None APPROACH: Right radial artery LEVEL OF SEDATION: Moderate with a sedation length of 12 minutes PROCEDURE DESCRIPTION: After obtaining an informed consent, the patient was brought to cardiac aquatic laborer. Local anesthesia was performed using lidocaine subcutaneously. The right radial artery was cannulated using Seldinger technique, under ultrasound guidance, the guidewire passed easily, following that we advanced a 5-Green[place]ic sheath dilator assembly, the wire and dilator were removed and sheath was flushed. Following that, 2 mg of verapamil along with 5000 unit heparin were given. Selective right and left coronary angiogram using a 5-Greenlandic JR4 and JL 3.5 catheters. The procedure was completed there was no complication. SELECTIVE CORONARY ANGIOGRAM: The right coronary artery: Large-caliber vessel and a dominant vessel appears to have mild luminal irregularities only Left main: Is angiographically normal The left circumflex: Large-caliber vessel nondominant vessel with no evidence of high-grade stenosis The left anterior descending artery: Has only minimal luminal irregularities only with no high-grade stenosis was identified CONCLUSION: 1. Mild to CAD POSTPROCEDURE MANAGEMENT: Medical treatment
[2024-05-21] MEDS ORDERED: SODIUM CHLORIDE 0.9% 1,000 ML IV SCH (10:15)
[2024-05-21 12:12] VITALS: BP 127/69; PULSE 64
== END 2024-05-21 13:02 | disposition home or self-care (01) ==
LOC: CATHCVL 07:15
PROVIDERS: ATTEND Internal Medicine Interventional Cardiology
DX: I25.110 Atherosclerotic heart disease of native coronary artery with unstable angina pectoris (principal); I48.19 Other persistent atrial fibrillation; I42.9 Cardiomyopathy, unspecified; E78.5 Hyperlipidemia, unspecified; G47.33 Obstructive sleep apnea (adult) (pediatric); E66.9 Obesity, unspecified; F17.210 Nicotine dependence, cigarettes, uncomplicated; Z79.85 Long-term (current) use of injectable non-insulin antidiabetic drugs; Z79.84 Long term (current) use of oral hypoglycemic drugs; Z79.01 Long term (current) use of anticoagulants; Z79.82 Long term (current) use of aspirin; Z79.899 Other long term (current) drug therapy; Z98.84 Bariatric surgery status; Z88.8 Allergy status to other drugs, medicaments and biological substances
CPT/HCPCS: 93454; 80048; 85025; C1769; C1894; J2250; J1644 ×3; J2003; Q9967

== ENCOUNTER → 2024-10-26 | Outpatient (CLI) | payer OTHER ==
[2024-10-26 20:01] LABS: Basophils # (A) 0.10 X 10*3/uL (0.00-0.10); Basophils % (A) 1.1 %; Eosinophils # (A) 0.19 X 10*3/uL (0.04-0.35); Eosinophils % (A) 2.0 %; HCT 44.2 % (39.6-50.0); HGB 13.5 g/dL (13.0-17.0); Immature Grans, Automated 0.40 %; Lymphocytes # (A) 2.21 X 10*3/uL (0.90-5.00); Lymphocytes % (A) 23.6 %; MCH 27.6 pg (27.0-32.0); MCHC 30.5 g/dL (32.0-37.0); MCV 90.4 FL (80.0-97.0); Monocytes # (A) 0.71 X 10*3/uL (0.20-1.00); Monocytes % (A) 7.6 %; NRBC Per 100 WBC 0 X 10*3/uL (0.00-0.01); Neutrophils # (A) 6.11 X 10*3/uL (1.80-7.70); Neutrophils % (A) 65.3 %; Platelet Count 276 X 10*3/uL (140-440); RBC 4.89 X 10*6/uL (4.40-5.60); RDW 13.1 % (11.5-14.5); WBC 9.36 X 10*3/uL (4.50-10.00)
[2024-10-26 20:19] LABS: Anion Gap 11.70 mmol/L (4.00-12.00); BUN/Creat Ratio 20.56 Ratio (12.00-20.00); Blood Urea Nitrogen 18.5 mg/dL (9.0-27.0); Calcium 8.5 mg/dL (8.7-10.3); Carbon Dioxide 23.3 mmol/L (21.6-31.8); Chloride 106 mmol/L (96-109); Glucose 89 mg/dL (70-110); Potassium 4.3 mmol/L (3.5-5.5); Sodium 141 mmol/L (135-145)
== END | disposition home or self-care (01) ==
LOC: LABPAT 14:25
PROVIDERS: ATTEND Orthopaedic Surgery
DX: Z01.812 Encounter for preprocedural laboratory examination (principal); M23.92 Unspecified internal derangement of left knee
CPT/HCPCS: 80048; 85025